=== PATIENT | male | born 1950 | race Caucasian/White ===

== ENCOUNTER 2017-02-25 16:53 | Inpatient (IN) ==
[2017-02-25] MEDS ORDERED: metroNIDAZOLE 500 MG TABLET PO STA (17:24)
[2017-02-25] MEDS ORDERED: ONDANSETRON 4 MG/2 ML VIAL IV STA (17:24)
[2017-02-25] MEDS ORDERED: SODIUM CHLORIDE 0.9% 1,000 ML IV STA (17:24)
--- NOTE | 2017-02-25 17:33 | Emergency Department Note ---
Arrival - Arrival Chief Complaint: Nausea/Vomiting/Diarrhea ED Nursing Triage Note: Transfer from [facility] for further evaluation of nausea/vomiting/diarrhea, COPD exacerbation, and Renal Failure. Onset N/V/D approx 3-4 days ago. Denies pain at present. Ramon catheter noted. Mode of Arrival: Stretcher Limitations: No Limitations Source: Patient Time Seen by Provider: 02/25/17 17:24 - History of Present Illness HPI Narrative: This 66-year-old white male presents on referral from [facility] where he was seen for nausea, vomiting, and diarrhea with a syncopal episode on the toilet precipitating his visit to the ER today. The patient has had 3-4 days of GI upset associated with chills, fever, and abdominal pain localized to the left lower quadrant. This has also been associated with dysuria, urgency, and drop in stream necessitating Ramon placement at [facility]. During the process of the workup at [facility] the patient was found to be in significant renal distress with a BUN of 92 and a creatinine is 7.1 of which the patient states he has had a kidney problem in the past. The patient is an extremely poor historian and seems somewhat confused, oriented to person and place but not so well time. Currently he does not appear in medical distress. Onset (ago): day(s) (3-4 days) Allergies/Adverse Reactions: Allergies Allergy/AdvReac Type Severity Reaction Status Date / Time No Known Allergies Allergy Verified 02/25/17 17:07 Home Medications: Home Medications Medication Instructions Recorded Confirmed Type ALPRAZolam [Xanax] 1 mg PO BID PRN 04/23/15 04/23/15 History Alfuzosin HCl [Alfuzosin HCl ER] 10 mg PO DAILY 04/23/15 04/23/15 History Aspirin [Ecotrin] 81 mg PO DAILY 04/23/15 04/23/15 History Bimatoprost 0.01% Oph Soln 1 drop BOTH EYES BEDTIME 04/23/15 04/23/15 History [Lumigan] Cilostazol [Pletal] 50 mg PO BID 04/23/15 04/23/15 History Duloxetine HCl [Cymbalta] 60 mg PO DAILY 04/23/15 04/23/15 History Fentanyl [Fentanyl 75 mcg/hr Patch] 1 patch TRANSDERM Q3DAY 04/23/15 04/23/15 History Gabapentin Cap/Tab [Neurontin 600 mg PO QID 04/23/15 04/23/15 History Cap/Tab] HYDROcodone/ACETAMIN 10-325 [[place] 1 tablet PO Q4H PRN 04/23/15 04/23/15 History 10-325] Lisinopril [Zestril] 10 mg PO BID 04/23/15 04/23/15 History Morphine Sulfate 30 mg PO TID 04/23/15 04/23/15 History Pravastatin [Pravachol] 40 mg PO BEDTIME 04/23/15 04/23/15 History Zolpidem Tartrate [Ambien] 10 mg PO BEDTIME 04/23/15 04/23/15 History traZODone [Desyrel] 100 mg PO BEDTIME 04/23/15 04/23/15 History Review of System - Review of System 12 point system: reviewed and no additional remarkable complaints except as stated - Review of System Constitutional: Present: as per HPI Gastrointestinal: Present: as per HPI Genitourinary male: Present: as per HPI Neurological: Present: as per HPI Medical,Surgical,& Family Hx - Medical History Cardio: History of: CHF, CAD, Hypertension Endocrine: History of: Diabetes Mellitus (IDDM), Dyslipidemia Respiratory: History of: COPD Musculoskeletal: History of: Back/Neck Problems (chronic pain followed by Dr. Pena) - Surgical History Orthopedic Surgeries: Surgical HX of;: Orthopedic Surgery (amputation right great toe) - Social History Smoking Status: Former smoker Exam Physical Examination: GENERAL: Well developed, well nourished elderly white male in no acute distress. HEENT: Normocephalic. No trauma. Moist mucous membranes. EOMI. PERRLA. ENT NML NECK: Supple. No adenopathy. CARDIAC: Regular. No murmurs. Heart rate 112 CHEST: Clear to auscultation. No respiratory distress. O2 sat 97% ABDOMEN: Soft. Left lower quadrant and suprapubic tenderness with hypoactive bowel sounds EXTREMITIES: No trauma. Normal ROM. No pedal edema. SKIN: No diaphoresis. No rash. NEURO: Alert. Oriented to person and place but not so well time. Motor, sensory, vibratory intact. No focal deficits. Vital Signs: Vital Signs Temperature 99.4 F 02/25/17 17:10 Pulse Rate 112 H 02/25/17 17:10 Respiratory Rate 20 02/25/17 17:10 Blood Pressure 78/44 02/25/17 17:10 O2 Sat by Pulse Oximetry 94 L 02/25/17 16:53 Course - Reevaluation(s) Reevaluation #1: Discussed with patient the need for hospitalization - Consultations Consultation #1: Patient discussed with the hospitalist service who will admit for further evaluation treatment. Results - Labs CBC & BMP: 02/25/17 18:02 Lab Results: I have reviewed the patients labs Labs: Lab from [facility] reveals white blood count 17,800 hematocrit 35, glucose 151 BUN 92, creatinine 7.1, lipase 75, lactic acid 2.9. - Impressions EKG: Atrial fib with rapid ventricular response at 117. Normal QRS duration. Marked right axis deviation. Old inferior VA. No acute injury patterns. - Diagnostic Findings Procedure: Chest x-ray: image reviewed by me, report reviewed by me (Per [facility] , negative chest.), CT Abdomen and Pelvis: image reviewed by me, report reviewed by me (Evidence indicating a transverse colon mass as well as vascular calcinosis and a prior vertebroplasty of L1), CT: image reviewed by me, report reviewed by me (Head: Microvascular ischemia with cerebral atrophy but no acute injury noted) Disposition Clinical Impression: Renal insufficiency, Presumed transverse colon mass, Chronic diarrhea Case discussed with: patient Disposition: Still a Patient Condition: Guarded Time of Disposition: 18:35
[2017-02-25] MEDS ORDERED: ONDANSETRON 4 MG/2 ML VIAL ONE (17:43)
[2017-02-25] MEDS ORDERED: metroNIDAZOLE 500 MG TABLET ONE (17:43)
--- NOTE | 2017-02-25 17:54 | CT Report ---
Exam: CT scan of brain without contrast Date: 02/25/2017 Indication: Syncopal episode Comparison: 09/18/2011 Patient's classification: Emergency department Technical: Images were obtained from the skull base to the vertex without the use of intravenous contrast. Dose reduction was performed with decreasing kv and mA and automated exposure Total DLP: 1081.1 mGy*cm Findings: The ventricles are slightly enlarged. Small vessel changes are present in the periventricular subcortical white matter regions. Old lacunar infarction suspected in the right frontal subcortical junction the brainstem reveals mild ischemic change. The cerebellum reveals minimal atrophic changes. The paranasal sinuses globes and sella are intact. The mastoids are unremarkable. Calcification of the falx cerebri present. Impression: 1. Diffuse small vessel ischemic change and probable component of old small infarction involving the right frontal subcortical junction 2. Atrophy and component of the small vessel disease PROCEDURE INTERPRETED AT [facility] DEPARTMENT OF RADIOLOGY Final Report Signed by: Dr. Rojelio Vallecillo
--- NOTE | 2017-02-25 18:01 | EKG Report ---
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
--- NOTE | 2017-02-25 18:05 | CT Report ---
Exam: CT abdomen pelvis wo con Date: 02/25/2017 5:28 PM Comparison: None Indication: Pain small bowel obstruction Total DLP: 1559.5 mGy*cm Technical: No oral contrast was administered. Images were obtained from the lung bases to the iliac crest continuation through the pelvis without intravenous contrast with axial sagittal coronal imaging available for review. Dose reduction was performed with decreasing kv and mA and automated exposure Findings: Lung bases: No obvious effusions in the right lung base. There is atelectatic change and infiltrate in the left base posteriorly with small left base pleural effusion. Liver and Spleen: Unremarkable Gallbladder and Pancreas: Cholelithiasis present slight distention of the gallbladder. The pancreas is demonstrated without focal abnormalities Adrenals: Unremarkable Kidneys: The kidneys are demonstrated without obvious stones or obstruction or mass. Stomach: Distended with air-fluid and debris Retroperitoneum: No enlarged lymph nodes. Aorta and IVC: Vascular plaque in the aorta iliac vessels and mesenteric vasculature without aneurysm. The aorta and IVC without contrast or not otherwise evaluated. Bowel and Mesentery: Some fluid distention of the ascending colon and hepatic flexure present. The appendix is unremarkable. No obvious diverticulosis or diverticulitis or pneumoperitoneum. Small bowel is demonstrated without dilatation. Dilated transverse colonic segment present there is transition in the descending colon present. Pelvis: Bladder: Incompletely distended with fluid with Ramon catheter in place and small amount of air in the bladder Fluid: No free fluid identified. Lymph nodes: No enlarged lymph nodes. Pelvic organs: Phleboliths present true pelvis. Prostate gland is unremarkable. Osseous structures: Degenerative changes present thoracolumbar spine with multilevel disc disease and degenerative changes thoracolumbar spine with degenerative spondylosis present. Previous vertebral plasty at L1. Facet arthropathy is noted. Impression: 1. Dilated transverse colon with a transition in the region of the descending colon just below the splenic flexure. Colonoscopy may be beneficial for further evaluation. Underlying malignancy cannot be excluded this level. No evidence of pneumoperitoneum at this time. 2. No obvious evidence of small bowel obstruction 3. Mild distention of the stomach 4. Cholelithiasis 5. Vascular calcinosis 6. Degenerative spondylosis and previous vertebral plasty at L1 with intervertebral discogenic disease and facet arthropathy throughout the lumbosacral spine and lower thoracic spine. PROCEDURE INTERPRETED AT [facility] DEPARTMENT OF RADIOLOGY Final Report Signed by: Dr. Rojelio Vallecillo
[2017-02-25 18:23] LABS: Basophils # 0.1 10*3/uL (0.0-0.2); Basophils % 0.2 % (0.0-0.8); Eosinophils % 0.1 % (0.00-10.9); Hemoglobin 11.6 GM/DL (14.0-18.0); Immature Granulocytes % 0.5 %; Immature Granulocytes Absolute 0.11 #; Lymphocytes % 4.7 % (21.2-54.2); Mean Corpuscular HGB Conc 33.1 GM/DL (32-36); Mean Corpuscular Hemoglobin 30 PG (27-34); Mean Corpuscular Volume 90.2 FL (87-102); Mean Platelet Volume 11.5 FL (9.6-12.0); Monocytes # 1.3 10*3/uL (0.11-0.8); Monocytes % 6.4 % (1.7-12.7); Neutrophils # 18.1 10*3/uL (1.4-7.4); Neutrophils % 88.1 % (38.7-73.9); Platelet Count 299 T/CUMM (130-400); Red Blood Count 3.88 MC/CUMM (3.8-5.5); Red Cell Distribution Width 14.7 % (9.3-17.3); White Blood Count 20.5 T/CUMM (4-12)
[2017-02-25 18:28] LABS: Apearance,Urine Slightly Hazy (Clear); Bilirubin,Urine Negative (Negative); Blood, Urine Negative (Negative); Glucose,Urine (UA) Negative (Negative); Hyaline Casts,Urine 4 /LPF (0-3); Ketones,Urine Negative (Negative); Mucus,Urine Occasional /LPF (Occasional); Nitrite,Urine Negative (Negative); Protein,Urine Negative; RBC,Urine <1 /HPF (0-4); Squamous Epithelial Cell,Urine Occasional /HPF (0-10); Urine Color Yellow (Yellow); Urine Specific Gravity 1.013 (1.001-1.035); Urine Urobilinogen < 2.0 EU/DL (0.2-1.0); WBC,Urine 1 /HPF (0-6)
[2017-02-25 18:39] LABS: Barbiturates Screen,Urine Negative (Negative); Benzodiazepines Screen,Urine Negative (Negative); Cannabinoid Screen,Urine Negative (Negative); Opiate Screen,Urine Positive (Negative); Phencyclidine Screen,Urine Negative (Negative)
--- NOTE | 2017-02-25 18:40 | Hospitalist History & Physical ---
Assessment and Plan - Time spent with patient Time spent with patient: Greater than 30 minutes (1) Sepsis Status: Acute Assessment and plan: Patient presents with possible sepsis as he at this time may have a gastroenteritis and meets sirs criteria. He apparently had a lactic acid level that was elevated at an outlying facility and is currently hypotensive. We will culture and begin broad-spectrum IV antibiotics as well as initiate sepsis protocol which includes aggressive IV fluid hydration. Repeat labs are currently pending. Current Visit: Yes (2) Renal failure Status: Acute Assessment and plan: Patient is an renal failure. We have no baseline but this is presumed to be acute in nature. He is making urine which appears to be concentrated and is likely secondary to volume depletion. Will aggressively hydrate and follow strict I's and O's and repeat electrolytes and renal function in the a.m. Current Visit: Yes (3) Atrial fibrillation with rapid ventricular response Status: Acute Assessment and plan: Patient has atrial fibrillation with rapid ventricular response and it appears that he is volume depleted. We will fluid resuscitate and reevaluate prior to initiating any other rate controlling drugs. Current Visit: Yes (4) Hypertension Status: Chronic Assessment and plan: Patient is currently hypotensive. Will hold any antihypertensive therapy and aggressively fluid resuscitate. Current Visit: Yes Qualifiers: Hypertension type: essential hypertension Qualified Code(s): I10 - Essential (primary) hypertension (5) Diabetes mellitus Status: Chronic Assessment and plan: Patient gives a history of diabetes mellitus. He states he is on insulin however we have no doses. He is apparently on no oral agent as well. Will place him on Accu-Cheks with sliding scale and follow. Current Visit: Yes Qualifiers: Diabetes mellitus type: type 2 (6) Abnormal abdominal CT scan Status: Acute Assessment and plan: Please see findings. Will provide IV fluids, empiric IV antibiotics, antiemetics and analgesics. Further workup and formal GI consultation will be performed based on patient's clinical response and the results of the pending database. Current Visit: Yes (7) Chronic pain syndrome Status: Chronic Assessment and plan: Patient has chronic pain syndrome. At this time will withhold most sedating and mind altering drugs and provide only as needed. Will need to reinitiate his chronic meds when deemed appropriate. Current Visit: Yes History of Present Illness Chief complaint: Confused, passed out History of present illness: Mr. Murphy is a 66 year old white male who initially presented to [facility] after having weakness and apparently had a syncopal episode after toileting. He was evaluated there and noted to have renal failure and lactic acidosis and was transferred to [facility]. He is currently awake and alert and oriented to person place and time, however he is extremely poor historian and is unable to give a reliable history. He states his primary care provider is Gabino Jones. He also notes that he has a fast heart rate and is fixated on this is being why he is here. He apparently had some nausea vomiting and some very mild diarrhea earlier in the week. He admits to having hypertension, diabetes mellitus, chronic pain syndrome but denies any other medical problems. Home Medications Medication Instructions Recorded Confirmed Type Zolpidem Tartrate [Ambien] 10 mg PO BEDTIME 04/23/15 02/25/17 History Chlorthalidone 12.5 mg PO DAILY 02/25/17 02/25/17 History Metoprolol Tartrate 12.5 mg PO BID 02/25/17 02/25/17 History Pantoprazole Tab [Protonix Tab] 40 mg PO BID 02/25/17 02/25/17 History Pregabalin [Lyrica] 75 mg PO TID PRN 02/25/17 02/25/17 History Tizanidine HCl 4 mg PO TID 02/25/17 02/25/17 History dilTIAZem HCl [Diltiazem ER (24 120 mg PO BEDTIME 02/25/17 02/25/17 History hr)] diphenhydrAMINE CAP [Benadryl Cap] 25 mg PO DAILY PRN 02/25/17 02/25/17 History Allergies Allergy/AdvReac Type Severity Reaction Status Date / Time No Known Allergies Allergy Verified 02/25/17 17:07 Medical,Surgical,& Family Hx - Medical History Cardio: History of: CHF, CAD, Hypertension Endocrine: History of: Diabetes Mellitus (IDDM), Dyslipidemia Respiratory: History of: COPD Musculoskeletal: History of: Back/Neck Problems (chronic pain followed by Dr. Pena) - Surgical History Orthopedic Surgeries: Surgical HX of;: Orthopedic Surgery (amputation right great toe) - Family History Additional Family History: He states there is no family history of premature coronary disease, - Social History Smoking Status: Former smoker Have you smoked in the last 12 months: No Frequency of Alcohol Use: None Type of Drug Use: None Marital Status: 12 point system: reviewed and no additional remarkable complaints except as stated Exam - Constitutional Vitals: Period Temp Pulse Resp BP Sys/Olson Pulse Ox Last 24 Hr 99.4 F-99.4 F 112-112 20-20 78-78/44-44 94 General appearance: no acute distress - Head Head exam: Present: normocephalic, atraumatic - Eye Eye exam: Present: EOMI. Absent: scleral icterus Pupils: Present: LANEY - ENT ENT exam: Present: other (Dry mucous membranes) - Neck Neck exam: Absent: lymphadenopathy, meningismus, tenderness, thyromegaly - Respiratory Respiratory exam: Present: clear to auscultation bilaterally. Absent: accessory muscle use, rales, rhonchi, wheezes - Cardiovascular Cardiovascular exam: Present: regular rate and rhythm, tachycardia. Absent: gallop, systolic murmur - GI/Abdominal GI/Abdominal exam: Present: normal bowel sounds, soft. Absent: mass, tenderness , rebound - Extremities Exam Extremities exam: Absent: calf tenderness, edema - Back Exam Back exam: Present: normal inspection - Neurological Exam Neurological exam: Present: alert, oriented X3, CN II-XII intact. Absent: motor sensory deficit - Psychiatric Psychiatric exam: Present: normal mood, flat affect. Absent: agitated, anxious - Skin Skin exam: Present: warm, dry. Absent: rash Results - Labs CBC & BMP: 02/25/17 18:02 02/25/17 18:02 Lab Results: I have reviewed the past 24 hour labs - EKG EKG shows: atrial fibrillation - Diagnostic Findings Procedure: Chest x-ray: report reviewed by me, CT Abdomen and Pelvis: report reviewed by me Sepsis - Sepsis Classification of Sepsis: Septic Shock - Physical Exam Respiratory exam: clear to auscultation bilaterally Capillary Refill: Less Than 3 Seconds Peripheral pulses: Radial (L): 5+, Radial (R): 5+ Cardiovascular exam: irregular rhythm, tachycardia Skin exam: normal color
[2017-02-25 18:47] LABS: Calcium 7.7 MG/DL (8.5-10.1); Osmolality,Calculated 288.7 MOS/KG (273-304); Potassium 5.4 MMOL/L (3.5-5.1)
[2017-02-25] MEDS ORDERED: SODIUM CHLORIDE 0.9% 2,650 ML IV ONE (18:54)
[2017-02-25] MEDS ORDERED: LACTATED RINGERS 1,000 ML IV SCH ×2 (19:00→21:50)
[2017-02-25 19:05] LABS: CKMB % 2.7 %; Troponin I Only < 0.015 NG/ML (0.00-0.045)
[2017-02-25] MEDS ORDERED: ONDANSETRON 4 MG/2 ML VIAL IV PRN (19:50)
[2017-02-25] MEDS ORDERED: DEXTROSE 50% 25 GM/50 ML VIAL IV PRN (19:50)
[2017-02-25] MEDS ORDERED: GLUCAGON 1 MG VIAL IM PRN (19:50)
[2017-02-25 19:58] LABS: Band Neutrophils 1 % (0-10); Lymphocytes 8 % (20-55); Platelet Estimate Normal; Segmented Neutrophils 87 % (50-85); Total Cells Counted 100
--- NOTE | 2017-02-25 20:00 | XRay Report ---
Exam: XR chest 1V portable Date: 02/25/2017 7:25 PM Indication: Shortness of breath Comparison: 02/25/2017 Technical: AP portable Findings: External cardiac leads are present. Mild cardiac enlargement. Patchy interstitial densities and reticular nodular densities in the lung rice bilaterally. No pneumothorax present. Mediastinum is unremarkable otherwise. Impression: 1. Mild cardiomegaly 2. Underlying granuloma changes 3. Minimal patchy interstitial infiltrate suspected in the left base PROCEDURE INTERPRETED AT [facility] DEPARTMENT OF RADIOLOGY Final Report Signed by: Dr. Rojelio Vallecillo
[2017-02-25] MEDS: CILOSTAZOL 50 MG TABLET PO SCH (20:49)
[2017-02-25] MEDS: ENOXAPARIN 30 MG/0.3 ML SYRINGE SUBCUT SCH (20:49)
[2017-02-25] MEDS: PIPERACILLIN/TAZOBACTAM 3,375 MG in SODIUM CHLORIDE 0.9% 100 ML IV SCH (20:50)
[2017-02-25] MEDS: BIMATOPROST 0.01% OPH SOLN 2.5 ML BOTTLE BOTH EYES SCH (20:55)
[2017-02-25] MEDS ORDERED: SODIUM CHLORIDE 0.9% 1,000 ML IV ONE (21:00)
[2017-02-25] MEDS ORDERED: PRAVASTATIN 40 MG TABLET PO SCH (21:00)
[2017-02-25] MEDS ORDERED: SODIUM CHLORIDE 0.9% 1,650 ML IV ONE (22:30)
[2017-02-25] MEDS ORDERED: VANCOMYCIN INJ 1,500 MG in SODIUM CHLORIDE 0.9% 500 ML IV ONE (23:08)
[2017-02-25] MEDS ORDERED: VANCOMYCIN INJ 1,500 MG in SODIUM CHLORIDE 0.9% 500 ML IV PRN (23:21)
--- NOTE | 2017-02-25 23:27 | Event Note ---
Go to the bedside of the patient in CCU room at 123 because of anuria: Patient transferred here from [facility] area today admitted by my colleagues. Patient has a creatinine around 7 with BUN in the 90s. He has received 1/2 L of normal saline and he continues to be anuric. We have bladder scanned him there is nothing in the urinary bladder. He had an CT scan of the abdomen and pelvis area on today which revealed no obstruction in the upper GI tract. My question is whether this is new. I am also concerned that the patient has modest elevation of potassium at this time. Looks like he needs nephrology consultation with intention of dialyzing him. I did call Dr. Mccann who is the rn lab gas distribution and emergency clerk. He advises that patient does not need to have anything done at this point. Plan is to repeat a BMP and magnesium in the morning. Said in the potassium probably be higher than what it is now because he definitely has not produced in the urine. We will continue normal saline at 100 mL/h after the boluses. Blood pressure is optimal. Mucous membranes do not look to be as dehydrated. Skin turgor is normal. Have noted him to be quite shaky and tremulous and I am thinking this is withdrawal from his opioids. Takes extended release morphine alongside Percocets at home. His medications are yet to be verified but will resume these opioids while here. This is a pain clinic outpatient. We may have: Pain management. too. The rest of these effects have been written.
[2017-02-25] MEDS ORDERED: MORPHINE ER 30 MG TABLET PO ONE (23:30)
[2017-02-25] MEDS ORDERED: SODIUM CHLORIDE 0.9% 1,000 ML IV SCH (23:30)
[2017-02-26] MEDS: metroNIDAZOLE INJ 500 MG in PREMIX 1 EACH IV SCH ×3 (00:32→16:50)
[2017-02-26] MEDS ORDERED: SODIUM CHLORIDE 0.9% 1,000 ML IV ONE ×2 (00:56→13:17)
[2017-02-26] MEDS: INSULIN LISPRO 100 UNIT/ML SUBCUT SCH ×5 (00:59→21:39)
[2017-02-26] MEDS ORDERED: VANCOMYCIN INJ 1,000 MG in SODIUM CHLORIDE 0.9% 250 ML IV ONE (01:00)
[2017-02-26] MEDS ORDERED: NOREPINEPHRINE 4 MG/4 ML VIAL IV ONE (01:16)
[2017-02-26] MEDS: NOREPINEPHRINE 8 MG in SODIUM CHLORIDE 0.9% 242 ML IV SCH ×2 (01:24→18:01)
--- NOTE | 2017-02-26 01:29 | Event Note ---
Second go to see the patient in room 123 Mr. Murphy dropped his blood pressure in the 80s systolic. He is able to mentate with eyes but his blood pressures remained showing to be low and is tachycardic he had atrial fibrillation from history with a rate between 110 and 126. I will resorted to starting some Levophed on him at 2 mics per minute to titrate his systolic blood pressure above 90 maintaining a mean arterial pressure of 65. Still is yet to make any urine. The process of also given him a liter of normal saline change. Will leave him on 120 mL/min drip after these. Follow urine output. Nephrology consultation is on board and will see him in the morning
[2017-02-26 04:45] LABS: Basophils # 0.1 10*3/uL (0.0-0.2); Basophils % 0.3 % (0.0-0.8); Eosinophils # 0.1 10*3/uL (0.0-0.87); Eosinophils % 0.3 % (0.00-10.9); Hematocrit 33.6 VOL% (42.0-52.0); Hemoglobin 10.7 GM/DL (14.0-18.0); Immature Granulocytes % 0.7 %; Immature Granulocytes Absolute 0.15 #; Lymphocytes % 9.6 % (21.2-54.2); Mean Corpuscular HGB Conc 31.8 GM/DL (32-36); Mean Corpuscular Hemoglobin 29 PG (27-34); Mean Corpuscular Volume 91.6 FL (87-102); Mean Platelet Volume 11.8 FL (9.6-12.0); Monocytes # 1.3 10*3/uL (0.11-0.8); Monocytes % 6.6 % (1.7-12.7); Neutrophils # 16.7 10*3/uL (1.4-7.4); Neutrophils % 82.5 % (38.7-73.9); Platelet Count 245 T/CUMM (130-400); Red Blood Count 3.67 MC/CUMM (3.8-5.5); Red Cell Distribution Width 14.9 % (9.3-17.3); White Blood Count 20.3 T/CUMM (4-12)
--- NOTE | 2017-02-26 04:46 | EKG Report ---
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
[2017-02-26 05:12] LABS: Calcium 6.7 MG/DL (8.5-10.1)
[2017-02-26 05:21] LABS: Band Neutrophils 3 % (0-10); Eosinophils 1 % (0-10); Hypochromasia 1+; Lymphocytes 4 % (20-55); Ovalocytes Slight; Platelet Estimate Adequate; Segmented Neutrophils 88 % (50-85); Total Cells Counted 100
--- NOTE | 2017-02-26 06:52 | Pain Management Consult Note ---
Assessment and Plan (1) Chronic pain syndrome Status: Chronic Assessment and plan: Currently the patient does not seem to be in opioid withdrawal. I can give him low doses of [place] at this time as needed. I would consult Dr. Cherry from [facility] to assist in pain management because he is more familiar with the patient Current Visit: Yes History of Present Illness Chief complaint: Chronic pain History of present illness: Mr. Murphy is a 66 year old male Patient used to see me for pain management and I had let him go from a pain clinic of couple of years ago due to issues surrounding inappropriate use of narcotics. Patient used to have a pain pump implanted which had to be removed due to infection. Patient has been going to the [facility] for the past couple of years. Patient was brought in from [facility] with renal failure sepsis and hypotension. I was consulted to assist in pain management. There is some confusion as far as what pain medications he is on and none of the pain prescription bottles were brought forward with the patient. Patient denies inappropriate use of narcotics at this time. The nurse has already requested the patient's to bring in the bottles Home Medications Medication Instructions Recorded Confirmed Type Zolpidem Tartrate [Ambien] 10 mg PO BEDTIME 04/23/15 02/25/17 History Chlorthalidone 12.5 mg PO DAILY 02/25/17 02/25/17 History Metoprolol Tartrate 12.5 mg PO BID 02/25/17 02/25/17 History Pantoprazole Tab [Protonix Tab] 40 mg PO BID 02/25/17 02/25/17 History Pregabalin [Lyrica] 75 mg PO TID PRN 02/25/17 02/25/17 History Tizanidine HCl 4 mg PO TID 02/25/17 02/25/17 History dilTIAZem HCl [Diltiazem ER (24 120 mg PO BEDTIME 02/25/17 02/25/17 History hr)] diphenhydrAMINE CAP [Benadryl Cap] 25 mg PO DAILY PRN 02/25/17 02/25/17 History Allergies Allergy/AdvReac Type Severity Reaction Status Date / Time No Known Allergies Allergy Verified 02/25/17 17:07 Medical,Surgical,& Family Hx - Medical History Cardio: History of: CHF, CAD, Hypertension Neurology: History of: Cerebrovascular Accident (12 yrs ago), Dementia Endocrine: History of: Diabetes Mellitus (IDDM), Dyslipidemia Respiratory: History of: COPD, Obstructive Sleep Apnea (refuses cpap) Renal: History of: Renal Failure Gastrointestinal: History of: GI Problems (bleeding ulcers 6 mo ago [facility]) Musculoskeletal: History of: Back/Neck Problems (chronic pain followed by Dr. Pena) - Surgical History Cardiac Surgeries: Patient Denies: Cardiac Catheterization Reproductive Surgeries: Patient denies;: Genitourinary Surgery Orthopedic Surgeries: Surgical HX of;: Orthopedic Surgery (amputation right great toe) - Family History Family History: Reports;: Family Cancer (mom-throat), Family Heart Disease (aunt ) - Social History Smoking Status: Former smoker Frequency of Alcohol Use: None Type of Drug Use: None 12 point system: reviewed and no additional remarkable complaints except as stated - Musculoskeletal Musculoskeletal: Present: arthralgias, back pain, joint swelling, muscle cramps - Neurological Neurological: Present: abnormal gait Exam - Constitutional Vitals: Period Temp Pulse Resp BP Sys/Olson Pulse Ox Last 24 Hr 98.0 F-99.9 F 101-131 10-26 46-161/37-134 93-100 General appearance: no acute distress - Head Head exam: Present: normal inspection - Eye Eye exam: Present: EOMI Pupils: Present: LANEY - ENT ENT exam: Present: normal exam Ear exam: Present: intact Mouth exam: Present: normal external inspection - Neck Neck exam: Present: normal inspection - Respiratory Respiratory exam: Present: decreased breath sounds - Cardiovascular Cardiovascular exam: Present: irregular rhythm - GI/Abdominal GI/Abdominal exam: Present: normal bowel sounds - Extremities Exam Extremities exam: Present: normal inspection - Back Exam Back exam: Present: vertebral tenderness - Neurological Exam Neurological exam: Present: abnormal gait - Skin Skin exam: Present: dry Results - Labs CBC & BMP: 02/26/17 04:10 02/26/17 04:10 Lab Results: I have reviewed the past 24 hour labs
--- NOTE | 2017-02-26 08:22 | Nephrology Consult Note ---
History of Present Illness Chief complaint: ARF History of present illness: Mr. Murphy is a 66 year old male with presentation of hypotension, septic picture, and oliguria. He has a history of diabetes mellitus and history of chronic back and leg pain for which he takes chronic opiates. He says that he has had episodes of renal failure in the past. Since he has been here he has received fluid resuscitation and is improved with good urine output now and a falling creatinine down to 6.4 from 7.0. He does have a metabolic acidosis with a measured bicarb of 14 this morning. Appropriate cultures pending. On exam he is in no distress and able to give a good history. His neck without jugular venous distention heart without rub or gallop. He is in atrial fib with an irregular rhythm rate of 110. Blood pressures currently 95 systolic on Levophed. He has no peripheral edema. Chest x-ray demonstrates no infiltrate. Impression acute renal failure in the midst of a septic hypotensive illness #2 history of diabetes mellitus #3 atrial fibrillation #4 history of previous episodes of renal impairment Plan bicarb repletion continue fluids and continue support. We expect his renal function to continue with this improvement. Home Medications Medication Instructions Recorded Confirmed Type Zolpidem Tartrate [Ambien] 10 mg PO BEDTIME 04/23/15 02/25/17 History Chlorthalidone 12.5 mg PO DAILY 02/25/17 02/25/17 History Metoprolol Tartrate 12.5 mg PO BID 02/25/17 02/25/17 History Pantoprazole Tab [Protonix Tab] 40 mg PO BID 02/25/17 02/25/17 History Pregabalin [Lyrica] 75 mg PO TID PRN 02/25/17 02/25/17 History Tizanidine HCl 4 mg PO TID 02/25/17 02/25/17 History dilTIAZem HCl [Diltiazem ER (24 120 mg PO BEDTIME 02/25/17 02/25/17 History hr)] diphenhydrAMINE CAP [Benadryl Cap] 25 mg PO DAILY PRN 02/25/17 02/25/17 History Allergies Allergy/AdvReac Type Severity Reaction Status Date / Time No Known Allergies Allergy Verified 02/25/17 17:07 Medical,Surgical,& Family Hx - Medical History Cardio: History of: CHF, CAD, Hypertension Neurology: History of: Cerebrovascular Accident (12 yrs ago), Dementia Endocrine: History of: Diabetes Mellitus (IDDM), Dyslipidemia Respiratory: History of: COPD, Obstructive Sleep Apnea (refuses cpap) Renal: History of: Renal Failure Gastrointestinal: History of: GI Problems (bleeding ulcers [address] [facility]) Musculoskeletal: History of: Back/Neck Problems (chronic pain followed by Dr. Pena) - Surgical History Cardiac Surgeries: Patient Denies: Cardiac Catheterization Reproductive Surgeries: Patient denies;: Genitourinary Surgery Orthopedic Surgeries: Surgical HX of;: Orthopedic Surgery (amputation right great toe) - Family History Family History: Reports;: Family Cancer (mom-throat), Family Heart Disease (aunt ) - Social History Smoking Status: Former smoker Frequency of Alcohol Use: None Type of Drug Use: None Exam - Vital Signs Vital signs: Period Temp Pulse Resp BP Sys/Olson Pulse Ox Last 24 Hr 98.0 F-99.9 F 101-131 10-26 46-161/37-134 93-100 - General Appearance General appearance: well-developed, well-nourished, appears started age Neck: no JVD, no thyromegaly, no carotid bruit, supple Respiratory: no kyphosis, no scoliosis Cardiology: no murmurs, no rub, no gallops, no edema, regular rate, regular rhythm, normal S1, normal S2 Gastrointestinal: normoactive bowel sounds Integumentary: no rash, warm and dry Neurologic: no focal deficit, no asterixis, alert and oriented x3, reflexes 2+ and symmetric, gait normal, strength 5/5 Musculoskeletal: no deformities, no erythema, no cyanosis, no clubbing Psychiatric: mood/affect appropriate Results - Labs CBC & BMP: 02/26/17 04:10 02/26/17 04:10 Assessment and Plan - Time spent with patient Time spent with patient: Greater than 30 minutes (1) Renal failure Status: Acute Assessment and plan: Continue fluid and bicarb Current Visit: Yes (2) Diabetes mellitus Status: Chronic Current Visit: Yes Qualifiers: Diabetes mellitus type: type 2 (3) Atrial fibrillation with rapid ventricular response Status: Acute Current Visit: Yes
[2017-02-26] MEDS ORDERED: PANTOPRAZOLE 40 MG VIAL IV SCH (09:00)
[2017-02-26] MEDS: DULoxetine 30 MG CAPSULE PO SCH (09:08)
[2017-02-26] MEDS: ASPIRIN EC 81 MG TABLET PO SCH (09:08)
[2017-02-26] MEDS: CILOSTAZOL 50 MG TABLET PO SCH ×2 (09:09→21:43)
[2017-02-26] MEDS: MORPHINE ER 30 MG TABLET PO SCH ×2 (09:10→21:42)
[2017-02-26] MEDS: PIPERACILLIN/TAZOBACTAM 3,375 MG in SODIUM CHLORIDE 0.9% 100 ML IV SCH ×2 (10:31→21:40)
[2017-02-26] MEDS: oxyCODONE/ACETAMINOPHEN 5-325 MG TABLET PO PRN (10:58)
--- NOTE | 2017-02-26 11:06 | Hospitalist Progress Note ---
Assessment and Plan (1) Sepsis Status: Acute Assessment and plan: 1)sepsis from likely GI source- CT abnormal with transition point in transverse colon. GI consulted. No hematochezia, no diarrhea-he had diarrhea earlier this week by report from outside ER. No more syncope like he had at home before admission. His blood pressure is improved from admission and we are tapering off the levophed. Cultures obtained on admission and he is on broad spectrum antibiotics. He was aggressively rehydrated. Afebrile, WBC remains elevated around 20 2)afib with RVR- he is tolerating this well at this time. While I was at the bedside his heart rate was 110-130. Begin IV dilt and titrate to keep HR 60-90. Controloling rate will likely help get him off levophed. Not anticoagulated as outpatient. No prior diagnosis of afib on chart. On lovenox 30mg/day at this time. 3)renal failure- he says he has this sometimes. His baseline creatinine is unknown. He has been seen by Dustin Mccann who added bicarb to his fluids which should help his BP too. creatinine down after hydration, recheck in am. 4)DM- on home insulin doses now with SSI. 5)chronic pain syndrome- concern last night was for withdrawal. Dr Pena has fired him in the past. He recommended low dose hydrocodone prn and follow up with DR Soria as outpatient. He doesn't have privileges here. Current Visit: Yes (2) Renal failure Status: Acute Current Visit: Yes (3) Atrial fibrillation with rapid ventricular response Status: Acute Current Visit: Yes (4) Diabetes mellitus Status: Chronic Current Visit: Yes Qualifiers: Diabetes mellitus type: type 2 (5) Chronic pain syndrome Status: Chronic Current Visit: Yes (6) Abnormal abdominal CT scan Status: Acute Current Visit: Yes Hospitalist: Subjective Interval history: Mr Murphy was admitted with sepsis from possible gastroenteritis. He is alert and back to his mental status baseline this morning per his - he has underlying dementia. His BP is high on levophed at 20 and it is being tapered off quickly this morning. His UOP has increased. He is hungry. Denies pain or shortness of breath. Not able to tell me how he was feeling on admission, but he is confident that he feels better. Exam - Constitutional Vitals: Period Temp Pulse Resp BP Sys/Olson Pulse Ox Last 24 Hr 98.0 F-99.9 F 101-131 10-26 46-161/37-134 93-100 General appearance: no acute distress, over weight - Head Head exam: Present: normocephalic, atraumatic - Eye Eye exam: Present: EOMI. Absent: scleral icterus Pupils: Present: LANEY - Respiratory Respiratory exam: Present: clear to auscultation bilaterally - Cardiovascular Cardiovascular exam: Present: irregular rhythm, tachycardia - GI/Abdominal GI/Abdominal exam: Present: normal bowel sounds, soft. Absent: tenderness - Extremities Exam Extremities exam: Absent: edema - Neurological Exam Neurological exam: Present: alert, CN II-XII intact. Absent: oriented X3 (not to time), motor sensory deficit - Skin Skin exam: Present: warm, dry Results - Labs CBC & BMP: 02/26/17 04:10 02/26/17 04:10 Lab Results: I have reviewed the past 24 hour labs
[2017-02-26] MEDS ORDERED: BISACODYL 5 MG TABLET PO SCH (11:30)
[2017-02-26] MEDS: SODIUM ACETATE 50 MEQ in SODIUM CHLORIDE 0.45% 1,000 ML IV SCH ×2 (11:37→21:39)
[2017-02-26] MEDS: DILTIAZEM INJ 100 MG in SODIUM CHLORIDE 0.9% 100 ML IV SCH (11:59)
[2017-02-26] MEDS ORDERED: MORPHINE 2 MG/1 ML SYRINGE ONE (12:19)
[2017-02-26] MEDS: MORPHINE 2 MG/1 ML SYRINGE IV PRN (12:23)
[2017-02-26] MEDS ORDERED: SODIUM BICARBONATE 50 MEQ/50 ML VIAL IV ONE (12:59)
--- NOTE | 2017-02-26 13:30 | EKG Report ---
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
--- NOTE | 2017-02-26 13:35 | Gastrointestinal Consult Note ---
Assessment and Plan (1) Abnormal abdominal CT scan Status: Acute Assessment and plan: The patient does have some abdominal distention with a history of alternating diarrhea and constipation. Is unclear in my mind whether this represents a diverticular stricture versus diverticulitis versus artifact from CT evaluation with dilation above the segments due to constipation and apparent transition point. I think if there was diverticulitis the radiologist would have commented on fat stranding around the colon which does not appear to be present. So linking the CT scan findings and the patient's elevated white blood cell count may not be realistic. I think a simple barium enema would evaluate this area nicely and we can obtain the patient's old colonoscopy report from Dr. Salazar/[facility] for evaluation. The patient will be unlikely to have a colon cancer this close to recent colonoscopy done at [facility] (by report this occurred in August 2016). Further recommendations post evaluation of the previous scope report and barium enema when this patient is well enough to undergo a trip to radiology and rectal contrast. Anticipate this may be in the next day or 2. Current Visit: Yes (2) Anemia Status: Acute Assessment and plan: Hematocrit is dropped from 35.0-->33.6%. I suspect this may be multifactorial due to renal dysfunction, chronic disease, possible gastritis and possibly nutritional. He is having some scant rectal bleeding which may be due to hemorrhoids. Will have to review the previous colonoscopy report, but I doubt there is significant bleeding from the colon such as might be seen with a diverticular bleed or an ischemic colitis. We will continue to follow the hematocrit during his hospital stay. Current Visit: Yes (3) Leukocytosis Status: Acute Assessment and plan: Leukocytosis with unclear etiology. Again while this may be related to the patient's underlying GI abnormalities we need to check the colon to see if there is evidence of colitis and search for other potential sources of infection , pneumonia etc. We will watch for improvement in the patient's white blood cell count over time on antibiotics. I have asked the nursing staff to collect stool cultures and fecal white blood cells in addition to the C. difficile order previously written. Current Visit: Yes (4) History of gastric ulcer Status: Acute Assessment and plan: The patient's states that he had a recent hospitalization at [facility] which were returned to get the results of concerning his gastric ulcer. We will continue to watch the patient's hematocrit over time and observe for bright red blood per rectum versus melena indicating potential source. While we could consider doing both EGD and colonoscopy patient's had both of these done at [facility] within the last year by report. I would like to review these records before considering repeating the tests. Nursing staff has been asked to have the patient sign a release of information to this and. Current Visit: Yes History of Present Illness Chief complaint: Abnormal GI x-ray question partial colonic obstruction History of present illness: Mr. Murphy is a 66 year old male who is somewhat confused and feels like he has had alternating diarrhea and constipation, predominantly constipated and only recently switching over to diarrhea but also some rectal bleeding in the last several days. He presents this admission with an elevated white blood cell count to 20.3 K and decrease in his hematocrit to 33.6% in addition to multiple electrolyte abnormalities including hyperkalemia and creatinine up to 7.2 yesterday with a BUN of 86. CEA level is actually normal at 1.3. Opiate screen is positive on urine drug screening but the patient has chronic pain issues. He is being referred at this time due to a transition point seen on CT scan and the level of the descending colon with dilation of the transverse above this just below the splenic flexure. It was felt that colonoscopy may be helpful for further evaluation however the patient states that he has had colonoscopy done as recently as August 2016. Dr. Lobato indicates the patient had a recent bleeding episode over [facility] approximately 3 months ago where ulcer was treated by Dr. Salazar. We are attempting to get the records from the EGD and colonoscopy. He is eating his clear liquids without difficulty. He does have some distention of his bowel by physical examination. He is currently experiencing sepsis and Dr. Lobato believes this is secondary to a GI source. This would be odd without the patient having more pain in the CT scan demonstrating fat stranding around the colon not just a transition point. He is currently experiencing some atrial fibrillation with rapid ventricular response and has been requiring levo fed in order to keep his blood pressure is adequate for perfusion. Kidney function is improving. Dr. Lobato would like to hold off on doing a barium enema in order to assess the transition point further, I suspect this may be an artifact--although there is some very mild tenderness and tympany noted throughout the abdomen. She does not know if he has had polyps in the past but states this is been 1 of many colonoscopies that he has had through his life. Stool studies on the patient's diarrhea are pending. Home Medications Medication Instructions Recorded Confirmed Type Zolpidem Tartrate [Ambien] 10 mg PO BEDTIME 04/23/15 02/25/17 History Chlorthalidone 12.5 mg PO DAILY 02/25/17 02/25/17 History Metoprolol Tartrate 12.5 mg PO BID 02/25/17 02/25/17 History Pantoprazole Tab [Protonix Tab] 40 mg PO BID 02/25/17 02/25/17 History Pregabalin [Lyrica] 75 mg PO TID PRN 02/25/17 02/25/17 History Tizanidine HCl 4 mg PO TID 02/25/17 02/25/17 History dilTIAZem HCl [Diltiazem ER (24 120 mg PO BEDTIME 02/25/17 02/25/17 History hr)] diphenhydrAMINE CAP [Benadryl Cap] 25 mg PO DAILY PRN 02/25/17 02/25/17 History Allergies Allergy/AdvReac Type Severity Reaction Status Date / Time No Known Allergies Allergy Verified 02/25/17 17:07 Medical,Surgical,& Family Hx - Medical History Cardio: History of: CHF, CAD, Hypertension Neurology: History of: Cerebrovascular Accident (12 yrs ago), Dementia Endocrine: History of: Diabetes Mellitus (IDDM), Dyslipidemia Respiratory: History of: COPD, Obstructive Sleep Apnea (refuses cpap) Renal: History of: Renal Failure Gastrointestinal: History of: GI Problems (bleeding ulcers 6 mo ago [facility] system) Musculoskeletal: History of: Back/Neck Problems (chronic pain followed by Dr. Pena) - Surgical History Cardiac Surgeries: Patient Denies: Cardiac Catheterization Reproductive Surgeries: Patient denies;: Genitourinary Surgery Orthopedic Surgeries: Surgical HX of;: Orthopedic Surgery (amputation right great toe) - Family History Family History: Reports;: Family Cancer (mom-throat), Family Heart Disease (aunt ) - Social History Smoking Status: Former smoker Frequency of Alcohol Use: None Type of Drug Use: None Review of systems: Constitutional: Positive for recent fever, chills, nausea, and vomiting Eyes: Denies dry eyes, and scleral icterus HENT: Denies headaches Cardiovascular: Denies acute chest pain and claudication Respiratory: Denies shortness of breath, wheezing, and difficulty breathing, denies cough Gastrointestinal: As noted in the HPI Genitourinary: Denies dysuria and hematuria Neurologic: Denies vision loss, and loss of sensation Musculoskeletal: Patient does have some mild to moderate joint swelling, joint stiffness, and muscular weakness Psychiatric: Denies depression and nela symptoms, he does have chronic pain issues Heme-Lymph: Denies easy bruising, lymph node enlargement or tenderness, night sweats, excessive bleeding Allergies-immunologic: Denies pruritus and rhinorrhea Exam - Constitutional Vitals: Period Temp Pulse Resp BP Sys/Olson Pulse Ox Last 24 Hr 98.0 F-99.9 F 99-131 10-26 46-161/37-134 93-100 General appearance: mild distress - Head Head exam: Present: normocephalic - Eye Eye exam: Present: EOMI Pupils: Present: LANEY - Respiratory Respiratory exam: Present: clear to auscultation bilaterally. Absent: rhonchi, stridor, wheezes - Cardiovascular Cardiovascular exam: Present: regular rate and rhythm - GI/Abdominal GI/Abdominal exam: Present: distended, hypoactive bowel sounds, tenderness ( Very mild epigastric distention and mild tenderness), soft. Absent: guarding, rebound - Extremities Exam Extremities exam: Present: edema, other (Patient is missing his right great toe , trace edema at the ankles bilaterally) - Neurological Exam Neurological exam: Present: alert, oriented X3, CN II-XII intact. Absent: motor sensory deficit - Psychiatric Psychiatric exam: Present: normal affect, normal mood (Seems jovial) - Skin Skin exam: Present: warm Results - Labs CBC & BMP: 02/26/17 04:10 02/26/17 04:10
--- NOTE | 2017-02-26 14:47 | Cardiology Consult Note ---
<Cari Plasencia E - Last Filed: 02/26/17 14:06> Assessment and Plan - Time spent with patient Time spent with patient: Greater than 30 minutes (1) Chest pain Status: Resolved Assessment and plan: SEE PLAN OF CARE LISTED BELOW Current Visit: Yes (2) Sepsis Status: Acute Assessment and plan: SEE PLAN OF CARE LISTED BELOW Current Visit: Yes (3) Renal failure Status: Acute Assessment and plan: SEE PLAN OF CARE LISTED BELOW Current Visit: Yes (4) Atrial fibrillation with rapid ventricular response Status: Acute Assessment and plan: SEE PLAN OF CARE LISTED BELOW Current Visit: Yes (5) Diabetes mellitus Status: Chronic Current Visit: Yes Qualifiers: Diabetes mellitus type: type 2 (6) Chronic pain syndrome Status: Chronic Assessment and plan: SEE PLAN OF CARE LISTED BELOW Current Visit: Yes (7) Abnormal abdominal CT scan Status: Acute Assessment and plan: SEE PLAN OF CARE LISTED BELOW Current Visit: Yes (8) Anemia Status: Acute Assessment and plan: SEE PLAN OF CARE LISTED BELOW Current Visit: Yes (9) Leukocytosis Status: Acute Assessment and plan: SEE PLAN OF CARE LISTED BELOW Current Visit: Yes (10) History of gastric ulcer Status: Chronic Assessment and plan: SEE PLAN OF CARE LISTED BELOW Current Visit: Yes History of Present Illness - Data of Consult Patient: new to practice Consult date: 02/26/17 Requesting Physician: Erica Lobato - Consult Narrative Reason for consult: chest pain History of present illness: ONLINE COMMUNICATIONS SPECIALIST: LATRELL: DR. PATRIC CASTORENA: DR. WATKINS PCP: DR. MIKO SEVILLA Patient is being seen in the CCU. Patient does answer questions appropriately however he is a poor historian. Along with patient interview, a large portion of this information is taken from other healthcare providers and medical records. Mr. Murphy, 66WM, has been previously followed by Dr. Watkins, oncology specialist, at [facility]. Risk factors include: History of hypertension, diabetes, CVA, obesity, sedentary lifestyle, remote tobaccoism. He denies a known history of CAD, never having had a stress test or cardiac catheterization. Known history of atrial fibrillation. Patient cannot recall if he has ever taken a blood thinner. He reports he has had a stroke many years ago which affected his right upper and lower extremity to be minimally weaker than the left. Patient was admitted February 25, 2017 after being transferred from [facility] with complaints of weakness, syncope. He was found to be septic and has been housed in our CCU since admission. Patient is requiring Levophed. A "heart alert" was called this afternoon after patient complained of lower mid chest/epigastric pain suddenly. He had never experienced this type of discomfort before. Describes as "something stabbing, circling around in the there". It did not cause shortness of breath, lasted approximately 5 minutes and was relieved with IV morphine. He can identify no aggravating factors and rates the discomfort as a 7 on a scale of 1-10. He is currently chest pain- free. Cardiac biomarkers are pending. EKG reveals atrial fibrillation with rapid ventricular response. Since admission, patient has been in A. fib with RVR. IV Cardizem was started around noon today at 5 mg/h, heart rate now around 110 bpm. Patient is debilitated and does not walk very well due to weak lower legs and severe back pain. He cannot assess a change in his exercise tolerance but states as he performs his activities of daily living, he has never experienced chest pain before today. He does have a history of peptic ulcer disease. This was discovered in August [address] Dale Salazar at [facility], immunochemist. He denies vomiting of blood or passing blood in his stool. Etiology of sepsis is unknown but he may have a gastroenteritis and is being treated for such. Dr. Saravia is following as well. He is in renal failure, thought to be acute as we have no labs from which to compare. He is currently being hydrated. Cardiac biomarkers have been ordered, EKG does not reveal an acute event. We will continue to cycle the biomarkers and treat accordingly. Chest pain may be GI related as it is located in the lower chest/epigastric area. Of note, as I raised head of the bed to 90 to relieve his lower back pain, patient belched a significant amount several times. I will add Simethicone to his present medication regimen. Echocardiogram. Continue with hydration which may better control the rapid ventricular response. Once his sepsis improves, I suspect his heart rate will improve as well. I will further discuss with Dr. Mack and await additional recommendations. ASSESSMENT/PLAN: 1. CHEST PAIN - awaiting cardiac biomarkers which may simply be elevated due to his severe sepsis, metabolic disarray and rapid ventricular response. EKG does not reflect significant ST changes. This may be GI in nature to location, history of gastric ulcers, SIGNIFICANT amount of belching when I repositioned patient. Appreciate Dr. Saravia's assistance. 2. ATRIAL FIBRILLATION WITH RVR -rate is better controlled on IV Diltiazem. Suspect once his comorbidities improve, so will his rapid ventricular response. I will obtain records from Dr. Yarbrough's office. At this time, due to his anemia, he is not a candidate for anticoagulation but possibly in his future. Given his renal failure, hesitant to use IV Digoxin but may resort to using one dose if his rate becomes uncontrolled and we cannot escalate the dose of IV Diltiazem. 3. SEPSIS - continue current plan of care 4. HYPOTENSION - Levophed in place, adjusting according to needs but seems to be stable at the same dose this afternoon 5. DIABETES - continue current plan of care 6. ACUTE RENAL INSUFFICIENCY - presumed acute renal insufficiency. Stage IV 7. HISTORY OF GASTRIC ULCER DISEASE - awaiting records from Dr. Dale Matson' s office. Continue PPI 8. ABNORMAL ABDOMINAL CT -see report. 9. ANEMIA - current workup in process 10. LEUKOCYTOSIS - continue current plan of care. On appropriate antibiotics. Cultures pending CC: Erica Lobato MD - Home Medications and Allergies Home Medications: Home Medications Medication Instructions Recorded Confirmed Type Zolpidem Tartrate [Ambien] 10 mg PO BEDTIME 04/23/15 02/25/17 History Chlorthalidone 12.5 mg PO DAILY 02/25/17 02/25/17 History Metoprolol Tartrate 12.5 mg PO BID 02/25/17 02/25/17 History Pantoprazole Tab [Protonix Tab] 40 mg PO BID 02/25/17 02/25/17 History Pregabalin [Lyrica] 75 mg PO TID PRN 02/25/17 02/25/17 History Tizanidine HCl 4 mg PO TID 02/25/17 02/25/17 History dilTIAZem HCl [Diltiazem ER (24 120 mg PO BEDTIME 02/25/17 02/25/17 History hr)] diphenhydrAMINE CAP [Benadryl Cap] 25 mg PO DAILY PRN 02/25/17 02/25/17 History Allergies/Adverse Reactions: Allergies Allergy/AdvReac Type Severity Reaction Status Date / Time No Known Allergies Allergy Verified 02/25/17 17:07 Review of systems: REVIEW OF SYSTEMS: - Constitutional Constitutional: Present: Fatigue. Syncope. Absent: anorexia, night sweats - EENT Eyes: Absent: blurry vision, loss of vision, diplopia Ears: Absent: decreased hearing, ear pain, ear discharge - Cardiovascular Cardiovascular: Present: chest pain with exertion, dyspnea on exertion, edema, palpitations. Absent: chest pain with deep breath, claudication, - Respiratory Respiratory: Present: Recent cough . Absent: wheezing, hemoptysis, change in phlegm color - Gastrointestinal Gastrointestinal: Present: constipation, abdominal pain. Absent: hematemesis , hematochezia, melena, change in bowel habits, nausea - Genitourinary Genitourinary: Absent: difficulty urinating, dysuria, urinary hesitancy, flank pain - Musculoskeletal Musculoskeletal: Present: back pain Absent: joint swelling, muscle cramps, muscle weakness - Neurological Neurological: Present: Poor gait with frequent falls. Absent: dizziness, hemiparesis - Psychiatric Psychiatric: Anxiety present. Often has difficulty concentrating - Endocrine Endocrine: Present: fatigue. Absent: cold intolerance, heat intolerance, polyuria, polyphagia, polydipsia - Hematologic/Lymphatic Hematologic/Lymphatic: Present: easy bruising. Absent: easy bleeding -Integumentary Integumentary: Absent: lesions, rashes, skin breakdown Medical,Surgical,& Family Hx - Medical History Cardio: History of: CHF, CAD, Hypertension Neurology: History of: Cerebrovascular Accident (12 yrs ago), Dementia Endocrine: History of: Diabetes Mellitus (IDDM), Dyslipidemia Respiratory: History of: COPD, Obstructive Sleep Apnea (refuses cpap) Renal: History of: Renal Failure Gastrointestinal: History of: GI Problems (bleeding ulcers 6 mo ago [facility]) Musculoskeletal: History of: Back/Neck Problems (chronic pain followed by Dr. Pena) - Surgical History Cardiac Surgeries: Patient Denies: Cardiac Catheterization Reproductive Surgeries: Patient denies;: Genitourinary Surgery Orthopedic Surgeries: Surgical HX of;: Orthopedic Surgery (amputation right great toe) - Family History Family History: Reports;: Family Cancer (mom-throat), Family Heart Disease (aunt ) - Social History Smoking Status: Former smoker Have you smoked in the last 12 months: No Frequency of Alcohol Use: None Type of Drug Use: None Physical Examination Vital Signs Temp Pulse Resp BP Pulse Ox 99.4 F 112 H 20 78/44 94 L 02/25/17 16:53 02/25/17 16:53 02/25/17 16:53 02/25/17 16:53 02/25/17 16:53 General: [Appears critically ill. Pleasant and cooperative. ] HEENT: [PERRL, normocephalic, atraumatic. Mucous membranes moist. No jaundice noted. Conjunctiva moist and clear, sclerae anicteric] Neck: Unable to assess for JVD due to habitus. No thyromegaly or lymphadenopathy noted. No carotid bruit appreciated Cardiac: [Irregularly irregular rhythm, tachycardia rate. No obvious murmur, rub or gallop noted Lungs: [Clear to auscultation without accessory muscle use to assist the respiratory pattern.] Oxygen in use via nasal cannula Abdomen: Soft, bowel sounds normoactive. Nontender and nondistended. No abdominal bruit or thrill noted. No masses noted. Musculoskeletal: No fluid collection. Decreased range of motion is noted. Extremities: No clubbing, cyanosis noted. [ No edema noted.] Upper extremity pulses 2+. Lower extremity pulses 1+. Great toe right foot amputated. Capillary refill less than 3 seconds. Skin: No unusual lesions or rashes. No skin breakdown appreciated. Neuro: Awake, alert and oriented 3. Moves all extremities well without hemiparesis or paralysis. No essential tremor is appreciated. Result/EKG - Labs CBC & BMP: 02/26/17 04:10 02/26/17 04:10 Lab Results: I have reviewed the past 24 hour labs Labs: Laboratory Results - last 24 hr 02/25/17 02/25/17 02/25/17 18:02 18:02 18:02 WBC 20.5 H RBC 3.88 Hgb 11.6 L Hct 35.0 L MCV 90.2 MCH 30 MCHC 33.1 RDW 14.7 Plt Count 299 MPV 11.5 Neut % (Auto) 88.1 H Lymph % (Auto) 4.7 L [place] % (Auto) 6.4 Eos % (Auto) 0.1 Baso % (Auto) 0.2 Neut # (Auto) 18.1 H Lymph # (Auto) 1.0 L [place] # (Auto) 1.3 H Eos # (Auto) 0.0 Baso # (Auto) 0.1 Total Counted 100 Immature Gran % 0.5 Nucleated RBC % 0.0 Immature Gran # 0.11 Segmented Neutrophils 87 H Band Neutrophils 1 Lymphocytes 8 L Monocytes 4 Eosinophils Nucleated RBCs # 0.00 Platelet Estimate Normal Platelet Satelliting Hypochromasia Ovalocytes Sodium 131 L Potassium 5.4 H Chloride 95 L Carbon Dioxide 19 L Anion Gap 22.4 H BUN 86 H Creatinine 7.20 H GFR Calculation 9 BUN/Creatinine Ratio 11.00 Glucose 119 H POC Glucose Calculated Osmolality 288.7 Lactic Acid Cancelled Calcium 7.7 L Total Creatine Kinase CK-MB (CK-2) CK and CKMB Interp Troponin I Amylase 59 Lipase 73.0 Carcinoembryonic Ag PSA Diagnostic Urine Color Yellow Urine Appearance Slightly hazy Urine pH 5.0 Ur Specific [place] 1.013 Urine Protein Negative Urine Glucose (UA) Negative Urine Ketones Negative Urine Blood Negative Urine Nitrate Negative Urine Bilirubin Negative Urine Urobilinogen < 2.0 H Urine Leukocytes Negative Urine RBC <1 Urine WBC 1 Ur Squamous Epith Cells Occasional Hyaline Casts 4 Urine Mucus Occasional Ur Culture Indicated? Not indicated Urine Opiates Screen Ur Barbiturates Screen Ur Phencyclidine Scrn U Amphetamine/Methamph U Benzodiazepines Scrn U Cocaine Metab Screen U Cannabinoids Screen Serum Alcohol 02/25/17 02/25/17 02/25/17 18:02 18:02 18:02 WBC RBC Hgb Hct MCV MCH MCHC RDW Plt Count MPV Neut % (Auto) Lymph % (Auto) [place] % (Auto) Eos % (Auto) Baso % (Auto) Neut # (Auto) Lymph # (Auto) [place] # (Auto) Eos # (Auto) Baso # (Auto) Total Counted Immature Gran % Nucleated RBC % Immature Gran # Segmented Neutrophils Band Neutrophils Lymphocytes Monocytes Eosinophils Nucleated RBCs # Platelet Estimate Platelet Satelliting Hypochromasia Ovalocytes Sodium Potassium Chloride Carbon Dioxide Anion Gap BUN Creatinine GFR Calculation BUN/Creatinine Ratio Glucose POC Glucose Calculated Osmolality Lactic Acid Calcium Total Creatine Kinase 354 H CK-MB (CK-2) 9.7 H CK and CKMB Interp 2.7 Troponin I < 0.015 Amylase Lipase Carcinoembryonic Ag PSA Diagnostic 0.4 Urine Color Urine Appearance Urine pH Ur Specific [place] Urine Protein Urine Glucose (UA) Urine Ketones Urine Blood Urine Nitrate Urine Bilirubin Urine Urobilinogen Urine Leukocytes Urine RBC Urine WBC Ur Squamous Epith Cells Hyaline Casts Urine Mucus Ur Culture Indicated? Urine Opiates Screen Ur Barbiturates Screen Ur Phencyclidine Scrn U Amphetamine/Methamph U Benzodiazepines Scrn U Cocaine Metab Screen U Cannabinoids Screen Serum Alcohol < 15 L 02/25/17 02/25/17 02/25/17 18:02 20:18 21:45 WBC RBC Hgb Hct MCV MCH MCHC RDW Plt Count MPV Neut % (Auto) Lymph % (Auto) [place] % (Auto) Eos % (Auto) Baso % (Auto) Neut # (Auto) Lymph # (Auto) [place] # (Auto) Eos # (Auto) Baso # (Auto) Total Counted Immature Gran % Nucleated RBC % Immature Gran # Segmented Neutrophils Band Neutrophils Lymphocytes Monocytes Eosinophils Nucleated RBCs # Platelet Estimate Platelet Satelliting Hypochromasia Ovalocytes Sodium Potassium Chloride Carbon Dioxide Anion Gap BUN Creatinine GFR Calculation BUN/Creatinine Ratio Glucose POC Glucose 106 Calculated Osmolality Lactic Acid 1.9 Calcium Total Creatine Kinase CK-MB (CK-2) CK and CKMB Interp Troponin I Amylase Lipase Carcinoembryonic Ag PSA Diagnostic Urine Color Urine Appearance Urine pH Ur Specific [place] Urine Protein Urine Glucose (UA) Urine Ketones Urine Blood Urine Nitrate Urine Bilirubin Urine Urobilinogen Urine Leukocytes Urine RBC Urine WBC Ur Squamous Epith Cells Hyaline Casts Urine Mucus Ur Culture Indicated? Urine Opiates Screen Positive H Ur Barbiturates Screen Negative Ur Phencyclidine Scrn Negative U Amphetamine/Methamph Negative U Benzodiazepines Scrn Negative U Cocaine Metab Screen Negative U Cannabinoids Screen Negative Serum Alcohol 02/26/17 02/26/17 02/26/17 00:39 04:10 04:10 WBC 20.3 H RBC 3.67 L Hgb 10.7 L Hct 33.6 L MCV 91.6 MCH 29 MCHC 31.8 L RDW 14.9 Plt Count 245 MPV 11.8 Neut % (Auto) 82.5 H Lymph % (Auto) 9.6 L [place] % (Auto) 6.6 Eos % (Auto) 0.3 Baso % (Auto) 0.3 Neut # (Auto) 16.7 H Lymph # (Auto) 2.0 [place] # (Auto) 1.3 H Eos # (Auto) 0.1 Baso # (Auto) 0.1 Total Counted 100 Immature Gran % 0.7 Nucleated RBC % 0.0 Immature Gran # 0.15 Segmented Neutrophils 88 H Band Neutrophils 3 Lymphocytes 4 L Monocytes 4 Eosinophils 1 Nucleated RBCs # 0.00 Platelet Estimate Adequate Platelet Satelliting Hypochromasia 1+ Ovalocytes Slight Sodium 136 Potassium 5.0 Chloride 105 Carbon Dioxide 14 L Anion Gap 22.0 H BUN 82 H Creatinine 6.40 H GFR Calculation 10 BUN/Creatinine Ratio 12.00 Glucose 129 H POC Glucose 105 Calculated Osmolality 298.0 Lactic Acid Calcium 6.7 L Total Creatine Kinase CK-MB (CK-2) CK and CKMB Interp Troponin I Amylase Lipase Carcinoembryonic Ag PSA Diagnostic Urine Color Urine Appearance Urine pH Ur Specific [place] Urine Protein Urine Glucose (UA) Urine Ketones Urine Blood Urine Nitrate Urine Bilirubin Urine Urobilinogen Urine Leukocytes Urine RBC Urine WBC Ur Squamous Epith Cells Hyaline Casts Urine Mucus Ur Culture Indicated? Urine Opiates Screen Ur Barbiturates Screen Ur Phencyclidine Scrn U Amphetamine/Methamph U Benzodiazepines Scrn U Cocaine Metab Screen U Cannabinoids Screen Serum Alcohol 02/26/17 02/26/17 02/26/17 06:08 11:17 11:46 WBC RBC Hgb Hct MCV MCH MCHC RDW Plt Count MPV Neut % (Auto) Lymph % (Auto) [place] % (Auto) Eos % (Auto) Baso % (Auto) Neut # (Auto) Lymph # (Auto) [place] # (Auto) Eos # (Auto) Baso # (Auto) Total Counted Immature Gran % Nucleated RBC % Immature Gran # Segmented Neutrophils Band Neutrophils Lymphocytes Monocytes Eosinophils Nucleated RBCs # Platelet Estimate Platelet Satelliting Hypochromasia Ovalocytes Sodium Potassium Chloride Carbon Dioxide Anion Gap BUN Creatinine GFR Calculation BUN/Creatinine Ratio Glucose POC Glucose 144 H 152 H Calculated Osmolality Lactic Acid Calcium Total Creatine Kinase CK-MB (CK-2) CK and CKMB Interp Troponin I Amylase Lipase Carcinoembryonic Ag 1.3 PSA Diagnostic Urine Color Urine Appearance Urine pH Ur Specific [place] Urine Protein Urine Glucose (UA) Urine Ketones Urine Blood Urine Nitrate Urine Bilirubin Urine Urobilinogen Urine Leukocytes Urine RBC Urine WBC Ur Squamous Epith Cells Hyaline Casts Urine Mucus Ur Culture Indicated? Urine Opiates Screen Ur Barbiturates Screen Ur Phencyclidine Scrn U Amphetamine/Methamph U Benzodiazepines Scrn U Cocaine Metab Screen U Cannabinoids Screen Serum Alcohol - Diagnostic Findings Procedure: Chest x-ray: report reviewed by me, CT - chest: report reviewed by me - EKG EKG results: interpreted by me EKG shows: atrial fibrillation (Rapid ventricular response) <Yovani Mack - Last Filed: 02/26/17 17:13> History of Present Illness - Consult Narrative History of present illness: Mr. Murphy is a 66 year old male CC: Erica Lobato MD Physical Examination Vital Signs Temp Pulse Resp BP Pulse Ox 99.4 F 112 H 20 78/44 94 L 02/25/17 16:53 02/25/17 16:53 02/25/17 16:53 02/25/17 16:53 02/25/17 16:53 Result/EKG - Labs CBC & BMP: 02/26/17 04:10 02/26/17 04:10 Labs: Laboratory Results - last 24 hr 02/25/17 02/25/17 02/25/17 18:02 18:02 18:02 WBC 20.5 H RBC 3.88 Hgb 11.6 L Hct 35.0 L MCV 90.2 MCH 30 MCHC 33.1 RDW 14.7 Plt Count 299 MPV 11.5 Neut % (Auto) 88.1 H Lymph % (Auto) 4.7 L [place] % (Auto) 6.4 Eos % (Auto) 0.1 Baso % (Auto) 0.2 Neut # (Auto) 18.1 H Lymph # (Auto) 1.0 L [place] # (Auto) 1.3 H Eos # (Auto) 0.0 Baso # (Auto) 0.1 Total Counted 100 Immature Gran % 0.5 Nucleated RBC % 0.0 Immature Gran # 0.11 Segmented Neutrophils 87 H Band Neutrophils 1 Lymphocytes 8 L Monocytes 4 Eosinophils Nucleated RBCs # 0.00 Platelet Estimate Normal Platelet Satelliting Hypochromasia Ovalocytes Sodium 131 L Potassium 5.4 H Chloride 95 L Carbon Dioxide 19 L Anion Gap 22.4 H BUN 86 H Creatinine 7.20 H GFR Calculation 9 BUN/Creatinine Ratio 11.00 Glucose 119 H POC Glucose Calculated Osmolality 288.7 Lactic Acid Cancelled Calcium 7.7 L Total Creatine Kinase CK-MB (CK-2) CK and CKMB Interp Troponin I Amylase 59 Lipase 73.0 Carcinoembryonic Ag PSA Diagnostic Urine Color Yellow Urine Appearance Slightly hazy Urine pH 5.0 Ur Specific [place] 1.013 Urine Protein Negative Urine Glucose (UA) Negative Urine Ketones Negative Urine Blood Negative Urine Nitrate Negative Urine Bilirubin Negative Urine Urobilinogen < 2.0 H Urine Leukocytes Negative Urine RBC <1 Urine WBC 1 Ur Squamous Epith Cells Occasional Hyaline Casts 4 Urine Mucus Occasional Ur Culture Indicated? Not indicated Urine Opiates Screen Ur Barbiturates Screen Ur Phencyclidine Scrn U Amphetamine/Methamph U Benzodiazepines Scrn U Cocaine Metab Screen U Cannabinoids Screen Serum Alcohol 02/25/17 02/25/17 02/25/17 18:02 18:02 18:02 WBC RBC Hgb Hct MCV MCH MCHC RDW Plt Count MPV Neut % (Auto) Lymph % (Auto) [place] % (Auto) Eos % (Auto) Baso % (Auto) Neut # (Auto) Lymph # (Auto) [place] # (Auto) Eos # (Auto) Baso # (Auto) Total Counted Immature Gran % Nucleated RBC % Immature Gran # Segmented Neutrophils Band Neutrophils Lymphocytes Monocytes Eosinophils Nucleated RBCs # Platelet Estimate Platelet Satelliting Hypochromasia Ovalocytes Sodium Potassium Chloride Carbon Dioxide Anion Gap BUN Creatinine GFR Calculation BUN/Creatinine Ratio Glucose POC Glucose Calculated Osmolality Lactic Acid Calcium Total Creatine Kinase 354 H CK-MB (CK-2) 9.7 H CK and CKMB Interp 2.7 Troponin I < 0.015 Amylase Lipase Carcinoembryonic Ag PSA Diagnostic 0.4 Urine Color Urine Appearance Urine pH Ur Specific [place] Urine Protein Urine Glucose (UA) Urine Ketones Urine Blood Urine Nitrate Urine Bilirubin Urine Urobilinogen Urine Leukocytes Urine RBC Urine WBC Ur Squamous Epith Cells Hyaline Casts Urine Mucus Ur Culture Indicated? Urine Opiates Screen Ur Barbiturates Screen Ur Phencyclidine Scrn U Amphetamine/Methamph U Benzodiazepines Scrn U Cocaine Metab Screen U Cannabinoids Screen Serum Alcohol < 15 L 02/25/17 02/25/17 02/25/17 18:02 20:18 21:45 WBC RBC Hgb Hct MCV MCH MCHC RDW Plt Count MPV Neut % (Auto) Lymph % (Auto) [place] % (Auto) Eos % (Auto) Baso % (Auto) Neut # (Auto) Lymph # (Auto) [place] # (Auto) Eos # (Auto) Baso # (Auto) Total Counted Immature Gran % Nucleated RBC % Immature Gran # Segmented Neutrophils Band Neutrophils Lymphocytes Monocytes Eosinophils Nucleated RBCs # Platelet Estimate Platelet Satelliting Hypochromasia Ovalocytes Sodium Potassium Chloride Carbon Dioxide Anion Gap BUN Creatinine GFR Calculation BUN/Creatinine Ratio Glucose POC Glucose 106 Calculated Osmolality Lactic Acid 1.9 Calcium Total Creatine Kinase CK-MB (CK-2) CK and CKMB Interp Troponin I Amylase Lipase Carcinoembryonic Ag PSA Diagnostic Urine Color Urine Appearance Urine pH Ur Specific [place] Urine Protein Urine Glucose (UA) Urine Ketones Urine Blood Urine Nitrate Urine Bilirubin Urine Urobilinogen Urine Leukocytes Urine RBC Urine WBC Ur Squamous Epith Cells Hyaline Casts Urine Mucus Ur Culture Indicated? Urine Opiates Screen Positive H Ur Barbiturates Screen Negative Ur Phencyclidine Scrn Negative U Amphetamine/Methamph Negative U Benzodiazepines Scrn Negative U Cocaine Metab Screen Negative U Cannabinoids Screen Negative Serum Alcohol 02/26/17 02/26/17 02/26/17 00:39 04:10 04:10 WBC 20.3 H RBC 3.67 L Hgb 10.7 L Hct 33.6 L MCV 91.6 MCH 29 MCHC 31.8 L RDW 14.9 Plt Count 245 MPV 11.8 Neut % (Auto) 82.5 H Lymph % (Auto) 9.6 L [place] % (Auto) 6.6 Eos % (Auto) 0.3 Baso % (Auto) 0.3 Neut # (Auto) 16.7 H Lymph # (Auto) 2.0 [place] # (Auto) 1.3 H Eos # (Auto) 0.1 Baso # (Auto) 0.1 Total Counted 100 Immature Gran % 0.7 Nucleated RBC % 0.0 Immature Gran # 0.15 Segmented Neutrophils 88 H Band Neutrophils 3 Lymphocytes 4 L Monocytes 4 Eosinophils 1 Nucleated RBCs # 0.00 Platelet Estimate Adequate Platelet Satelliting Hypochromasia 1+ Ovalocytes Slight Sodium 136 Potassium 5.0 Chloride 105 Carbon Dioxide 14 L Anion Gap 22.0 H BUN 82 H Creatinine 6.40 H GFR Calculation 10 BUN/Creatinine Ratio 12.00 Glucose 129 H POC Glucose 105 Calculated Osmolality 298.0 Lactic Acid Calcium 6.7 L Total Creatine Kinase CK-MB (CK-2) CK and CKMB Interp Troponin I Amylase Lipase Carcinoembryonic Ag PSA Diagnostic Urine Color Urine Appearance Urine pH Ur Specific [place] Urine Protein Urine Glucose (UA) Urine Ketones Urine Blood Urine Nitrate Urine Bilirubin Urine Urobilinogen Urine Leukocytes Urine RBC Urine WBC Ur Squamous Epith Cells Hyaline Casts Urine Mucus Ur Culture Indicated? Urine Opiates Screen Ur Barbiturates Screen Ur Phencyclidine Scrn U Amphetamine/Methamph U Benzodiazepines Scrn U Cocaine Metab Screen U Cannabinoids Screen Serum Alcohol 02/26/17 02/26/17 02/26/17 06:08 11:17 11:46 WBC RBC Hgb Hct MCV MCH MCHC RDW Plt Count MPV Neut % (Auto) Lymph % (Auto) [place] % (Auto) Eos % (Auto) Baso % (Auto) Neut # (Auto) Lymph # (Auto) [place] # (Auto) Eos # (Auto) Baso # (Auto) Total Counted Immature Gran % Nucleated RBC % Immature Gran # Segmented Neutrophils Band Neutrophils Lymphocytes Monocytes Eosinophils Nucleated RBCs # Platelet Estimate Platelet Satelliting Hypochromasia Ovalocytes Sodium Potassium Chloride Carbon Dioxide Anion Gap BUN Creatinine GFR Calculation BUN/Creatinine Ratio Glucose POC Glucose 144 H 152 H Calculated Osmolality Lactic Acid Calcium Total Creatine Kinase CK-MB (CK-2) CK and CKMB Interp Troponin I Amylase Lipase Carcinoembryonic Ag 1.3 PSA Diagnostic Urine Color Urine Appearance Urine pH Ur Specific [place] Urine Protein Urine Glucose (UA) Urine Ketones Urine Blood Urine Nitrate Urine Bilirubin Urine Urobilinogen Urine Leukocytes Urine RBC Urine WBC Ur Squamous Epith Cells Hyaline Casts Urine Mucus Ur Culture Indicated? Urine Opiates Screen Ur Barbiturates Screen Ur Phencyclidine Scrn U Amphetamine/Methamph U Benzodiazepines Scrn U Cocaine Metab Screen U Cannabinoids Screen Serum Alcohol 02/26/17 02/26/17 14:41 16:12 WBC RBC Hgb Hct MCV MCH MCHC RDW Plt Count MPV Neut % (Auto) Lymph % (Auto) [place] % (Auto) Eos % (Auto) Baso % (Auto) Neut # (Auto) Lymph # (Auto) [place] # (Auto) Eos # (Auto) Baso # (Auto) Total Counted Immature Gran % Nucleated RBC % Immature Gran # Segmented Neutrophils Band Neutrophils Lymphocytes Monocytes Eosinophils Nucleated RBCs # Platelet Estimate Platelet Satelliting Hypochromasia Ovalocytes Sodium Potassium Chloride Carbon Dioxide Anion Gap BUN Creatinine GFR Calculation BUN/Creatinine Ratio Glucose POC Glucose 197 H Calculated Osmolality Lactic Acid Calcium Total Creatine Kinase 357 H CK-MB (CK-2) 7.5 H CK and CKMB Interp 2.1 Troponin I < 0.015 Amylase Lipase Carcinoembryonic Ag PSA Diagnostic Urine Color Urine Appearance Urine pH Ur Specific Freeman Urine Protein Urine Glucose (UA) Urine Ketones Urine Blood Urine Nitrate Urine Bilirubin Urine Urobilinogen Urine Leukocytes Urine RBC Urine WBC Ur Squamous Epith Cells Hyaline Casts Urine Mucus Ur Culture Indicated? Urine Opiates Screen Ur Barbiturates Screen Ur Phencyclidine Scrn U Amphetamine/Methamph U Benzodiazepines Scrn U Cocaine Metab Screen U Cannabinoids Screen Serum Alcohol
--- NOTE | 2017-02-26 14:55 | ECHO Report ---
Ameya Murphy Exam Date: 02/26/2017 10:13 Referring Physician: Technologist: Ailyn Malloy Age: 66 Ht (in): 71 Wt (lb): 250 Gender: M Exam Location: [facility] Echo Indications: renal failure, sepsis, afib, htn, diabetes BP: 94 / 68 HR: 124 Rhythm: tachycardia Technical Quality: Technically difficult study IMPRESSIONS Technically difficult study Normal chamber sizes, other than underfilled LV with hyperdynamic function Probable 1-2+ concentric LVH Estimated ejection fraction is 70% without segmental wall motion abnormality 1+ mitral and tricuspid regurgitation with RVSP 18 mmHg plus RAP Tachycardia noted MEASUREMENTS (Male / Female) Normal Values 2D ECHO LV Diastolic Diameter PLAX 4.4 cm 4.2 - 5.9 / 3.9 - 5.3 cm LV Systolic Diameter PLAX 2.5 cm LV Fractional Shortening PLAX 44.2 % IVS Diastolic Thickness 1.5 cm 0.6 - 1.0 / 0.6 - 0.9 cm LVPW Diastolic Thickness 1.2 cm 0.6 - 1.0 / 0.6 - 0.9 cm RV Internal Dim ED PLAX 2.0 cm Aortic Root Diameter 2.7 cm LA Systolic Diameter LX 3.9 cm 3.0 - 4.0 / 2.7 - 3.8 cm DOPPLER TR Peak Velocity 212.0 cm/s TR Peak Gradient 18.0 mmHg FINDINGS Left Ventricle Moderately increased septal wall thickness. Moderate concentric left ventricular hypertrophy with diastolic dysfunction. Left ventricular ejection fraction is estimated a Right Ventricle Mildly increased right ventricular size. Right Atrium Normal right atrial size. Left Atrium Moderately increased left atrial diameter. Mitral Valve Mild mitral valve sclerosis. Aortic Valve Mild aortic valve sclerosis without stenosis or regurgitation. Tricuspid Valve Morphologically normal tricuspid valve. Mild tricuspid valve regurgitation. Tricuspid regurgitation velocities suggest a PAP of 28 mmHg. Pulmonic Valve Pulmonic valve not well visualized. Pericardium No pericardial effusion. Aorta Normal size aortic root and proximal ascending aorta. Yovani Mack (Electronically Signed) Final Date: 26 February 2017 14:54
[2017-02-26 15:17] LABS: CKMB % 2.1 %; Troponin I Only < 0.015 NG/ML (0.00-0.045)
--- NOTE | 2017-02-26 17:17 | Cardiology Operative Report ---
Date of Procedure:: 02/26/17 Post-op diagnosis: same Procedure: Procedure right femoral vein triple-lumen catheter placement Indication: Need for IV access and pressor therapy Anesthetic: Local Description: On my arrival the patient already had received local anesthetic and was draped in his right femoral area. I placed a triple-lumen catheter in the right femoral vein using a Seldinger technique and then sewed into place. Lines were all flushed. Anesthesia: local Surgeon / Physician: Yovani Mack [employer] Lead: none Estimated blood loss: minimal Specimens: none sent Condition: stable Disposition: ICU/CCU
--- NOTE | 2017-02-26 17:24 | Event Note ---
Mr Lopez required a central line because he remained on levophed. Informed consent was obtained and he was prepped and draped in sterile fashion for right IJ TLC. I used maximal sterile procedure including gown, gloves, hairnet. The sonosite was used to identify the IJ. The RIJ was cannulated but I was unable to thread the wire. Hemostasis was obtained by holding pressure. Then the right groin was prepped for R femoral TLC placement using maximal sterile technique as above. Again I was able to cannulate the femoral vein but the wire wouldn't thread. Dr Mack was available and agreed to try. Throughout the procedure Mr Lopez was alert and talkative, breathing comfortably lying flat. CXR pending.
--- NOTE | 2017-02-26 18:07 | XRay Report ---
Exam: XR chest 1V portable Date: 02/26/2017 5:14 PM Indication: Attempted right IJ central venous catheter. Comparison: 02/25/2017 Technical: AP portable Findings: Cardiomegaly is present. Low volume left effusion. No pneumothorax. External cardiac leads are present. Lateral marginal osteophytes present thoracic spine. Impression: 1. Cardiomegaly 2. Low volume left effusion and atelectatic change 3. No pneumothorax. PROCEDURE INTERPRETED AT [facility] DEPARTMENT OF RADIOLOGY Final Report Signed by: Dr. Rojelio Vallecillo
[2017-02-26 18:28] LABS: Calcium 6.5 MG/DL (8.5-10.1); Osmolality,Calculated 305.3 MOS/KG (273-304); Potassium 4.6 MMOL/L (3.5-5.1)
[2017-02-26 18:59] LABS: Bilirubin,Total 0.5 MG/DL (0.2-1.0); Calcium 6.6 MG/DL (8.5-10.1); Osmolality,Calculated 306.3 MOS/KG (273-304); Potassium 4.7 MMOL/L (3.5-5.1); Total Protein 5.9 G/DL (6.4-8.3)
[2017-02-26] MEDS: ENOXAPARIN 30 MG/0.3 ML SYRINGE SUBCUT SCH (21:38)
[2017-02-26] MEDS: CALCIUM CARBONATE CHEW 500 MG TABLET PO SCH (21:42)
[2017-02-26] MEDS: BIMATOPROST 0.01% OPH SOLN 2.5 ML BOTTLE BOTH EYES SCH (21:47)
[2017-02-26 23:44] LABS: CKMB % 2.1 %; Troponin I Only < 0.015 NG/ML (0.00-0.045)
[2017-02-27] MEDS: metroNIDAZOLE INJ 500 MG in PREMIX 1 EACH IV SCH ×3 (00:36→15:44)
[2017-02-27] MEDS: DILTIAZEM INJ 100 MG in SODIUM CHLORIDE 0.9% 100 ML IV SCH ×2 (00:43→08:25)
[2017-02-27 03:00] LABS: Basophils % 0.3 % (0.0-0.8); Eosinophils # 0.2 10*3/uL (0.0-0.87); Eosinophils % 1.3 % (0.00-10.9); Hematocrit 31.6 VOL% (42.0-52.0); Hemoglobin 10.1 GM/DL (14.0-18.0); Immature Granulocytes % 0.5 %; Immature Granulocytes Absolute 0.06 #; Lymphocytes % 7.8 % (21.2-54.2); Mean Corpuscular Hemoglobin 29 PG (27-34); Mean Corpuscular Volume 91.6 FL (87-102); Mean Platelet Volume 11.5 FL (9.6-12.0); Monocytes # 1.3 10*3/uL (0.11-0.8); Monocytes % 9.9 % (1.7-12.7); Neutrophils # 10.2 10*3/uL (1.4-7.4); Neutrophils % 80.2 % (38.7-73.9); Platelet Count 261 T/CUMM (130-400); Red Blood Count 3.45 MC/CUMM (3.8-5.5); Red Cell Distribution Width 15.2 % (9.3-17.3); White Blood Count 12.7 T/CUMM (4-12)
[2017-02-27 03:47] LABS: Calcium 7.1 MG/DL (8.5-10.1); Free T4 (Free Thyroxine) 1.12 NG/DL (0.76-1.46); Magnesium 1.6 MG/DL (1.8-2.4); Potassium 4.7 MMOL/L (3.5-5.1); Thyroid Stimulating Hormone 0.185 uIU/ml (0.358-3.74)
[2017-02-27] MEDS: SODIUM ACETATE 50 MEQ in SODIUM CHLORIDE 0.45% 1,000 ML IV SCH ×2 (06:12→16:46)
--- NOTE | 2017-02-27 06:45 | Gastrointestinal Progress Note ---
Assessment and Plan (1) Abnormal abdominal CT scan Status: Acute Assessment and plan: The patient does have some abdominal distention with a history of alternating diarrhea and constipation. Is unclear in my mind whether this represents a diverticular stricture versus diverticulitis versus artifact from CT evaluation with dilation above the segments due to constipation and apparent transition point. I think if there was diverticulitis the radiologist would have commented on fat stranding around the colon which does not appear to be present. So linking the CT scan findings and the patient's elevated white blood cell count may not be realistic. I think a simple barium enema would evaluate this area nicely and we can obtain the patient's old colonoscopy report from Dr. Salazar/[place] for evaluation. The patient will be unlikely to have a colon cancer this close to recent colonoscopy done at [place] (by report this occurred in August 2016). Further recommendations post evaluation of the previous scope report and barium enema when this patient is well enough to undergo a trip to radiology and rectal contrast. Anticipate this may be in the next day or 2. 02/27/17--We Are still awaiting colonoscopy reports from [place] at this point ( requested). Patient remains on levophed and is not able to go for the barium enema yet. White blood cell count is dropping currently down from 20K to 12.7 K today. We do not really see a diverticulitis, there may be noninflammatory kinking in the colon or this may be a artifact which we should be able to tell very quickly with a single column barium enema when the patient is able to tolerate this. In the meantime I may give him a small enema to stimulate forward flow with some soapsuds. Continue clear liquid diet as tolerated. If he develops vomiting we can consider using an NG tube for suctioning his stomach. Current Visit: Yes (2) Anemia Status: Acute Assessment and plan: Hematocrit is dropped from 35.0-->33.6%. I suspect this may be multifactorial due to renal dysfunction, chronic disease, possible gastritis and possibly nutritional. He is having some scant rectal bleeding which may be due to hemorrhoids. Will have to review the previous colonoscopy report, but I doubt there is significant bleeding from the colon such as might be seen with a diverticular bleed or an ischemic colitis. We will continue to follow the hematocrit during his hospital stay. 02/27/17--Observe. The hematocrit is down to 31.6 today. No gross evidence of hematemesis or active bleeding per rectum but then again the patient is not having any stools either Current Visit: Yes (3) Leukocytosis Status: Acute Assessment and plan: Leukocytosis with unclear etiology. Again while this may be related to the patient's underlying GI abnormalities we need to check the colon to see if there is evidence of colitis and search for other potential sources of infection , pneumonia etc. We will watch for improvement in the patient's white blood cell count over time on antibiotics. I have asked the nursing staff to collect stool cultures and fecal white blood cells in addition to the C. difficile order previously written. 02/27/17--This is improved already--continue antibiotics as we are doing. Current Visit: Yes (4) History of gastric ulcer Status: Chronic Assessment and plan: The patient's states that he had a recent hospitalization at [place] which were returned to get the results of concerning his gastric ulcer. We will continue to watch the patient's hematocrit over time and observe for bright red blood per rectum versus melena indicating potential source. While we could consider doing both EGD and colonoscopy patient's had both of these done at [place] within the last year by report. I would like to review these records before considering repeating the tests. Nursing staff has been asked to have the patient sign a release of information to this and. 02/27/17--Await old records from [facility] for review however the patient's hematocrit seems relatively stable at this point despite anticoagulation with aspirin and lovenox. Current Visit: Yes Gastroenterology - PN: Subj Interval history: Patient is cognizant and able to converse about his pain. While he feels bloated in his upper abdomen with some belching and reflux type symptoms he is not really complaining of any pain in his descending colon or the ascending colon on the lower in the lower abdomen bilaterally. He is not passing any gas he is not having bowel movements. I may give him an enema to see if we can stimulate forward flow. He is tolerating clear liquids adequately and given the fact that he has not passing stools yet will probably not advance him from this for the time being. He is not nauseous or vomiting--white blood cell count is down from 20 K to 12.7 K on antibiotics. Exam (Progress Note) - Constitutional Vitals: Period Temp Pulse Resp BP Sys/Olson Pulse Ox Last 24 Hr 97.5 F-98.1 F 82-138 10-22 59-154/40-119 90-99 General appearance: no acute distress - Head Head exam: Present: normocephalic - Eye Eye exam: Present: EOMI - Respiratory Respiratory exam: Present: clear to auscultation bilaterally. Absent: rhonchi, stridor, wheezes - GI/Abdominal GI/Abdominal exam: Present: normal bowel sounds, distended, tenderness (Mild tenderness to deep palpation over the epigastrium), soft, other (Increased tympany over the epigastrium). Absent: guarding, rebound - Extremities Exam Extremities exam: Absent: edema - Neurological Exam Neurological exam: Present: alert, oriented X3. Absent: motor sensory deficit - Psychiatric Psychiatric exam: Present: normal affect, normal mood - Skin Skin exam: Present: warm Results - Labs CBC & BMP: 02/27/17 02:55 02/27/17 02:55
--- NOTE | 2017-02-27 07:10 | EKG Report ---
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
[2017-02-27] MEDS: INSULIN LISPRO 100 UNIT/ML SUBCUT SCH ×4 (07:50→20:01)
[2017-02-27] MEDS: PIPERACILLIN/TAZOBACTAM 3,375 MG in SODIUM CHLORIDE 0.9% 100 ML IV SCH ×2 (07:59→20:26)
--- NOTE | 2017-02-27 08:28 | Cardiology Progress Note ---
<Cee Plasencia E - Last Filed: 02/27/17 08:28> Assessment and Plan (1) Chest pain Status: Resolved Assessment and plan: SEE PLAN OF CARE LISTED BELOW Current Visit: Yes (2) Sepsis Status: Acute Assessment and plan: SEE PLAN OF CARE LISTED BELOW Current Visit: Yes (3) Renal failure Status: Acute Assessment and plan: SEE PLAN OF CARE LISTED BELOW Current Visit: Yes (4) Atrial fibrillation with rapid ventricular response Status: Acute Assessment and plan: SEE PLAN OF CARE LISTED BELOW Current Visit: Yes (5) Diabetes mellitus Status: Chronic Current Visit: Yes Qualifiers: Diabetes mellitus type: type 2 (6) Chronic pain syndrome Status: Chronic Assessment and plan: SEE PLAN OF CARE LISTED BELOW Current Visit: Yes (7) Abnormal abdominal CT scan Status: Acute Assessment and plan: SEE PLAN OF CARE LISTED BELOW Current Visit: Yes (8) Anemia Status: Acute Assessment and plan: SEE PLAN OF CARE LISTED BELOW Current Visit: Yes (9) Leukocytosis Status: Acute Assessment and plan: SEE PLAN OF CARE LISTED BELOW Current Visit: Yes (10) History of gastric ulcer Status: Chronic Assessment and plan: SEE PLAN OF CARE LISTED BELOW Current Visit: Yes Cardiology - PN: Subj Interval history: CEE TO COMPLETE. No more chest pain. Levo still on. WBC decreasing, looks much better. Trops negative. Exam (Progress Note) - Constitutional Vitals: Period Temp Pulse Resp BP Sys/Olson Pulse Ox Last 24 Hr 97.5 F-98.1 F 82-138 10-22 59-154/40-119 90-99 Result/EKG - Labs CBC & BMP: 02/27/17 02:55 02/27/17 02:55 Labs: Laboratory Results - last 24 hr 02/26/17 02/26/17 02/26/17 11:17 11:46 14:41 WBC RBC Hgb Hct MCV MCH MCHC RDW Plt Count MPV Neut % (Auto) Lymph % (Auto) [place] % (Auto) Eos % (Auto) Baso % (Auto) Neut # (Auto) Lymph # (Auto) [place] # (Auto) Eos # (Auto) Baso # (Auto) Immature Gran % Nucleated RBC % Immature Gran # Nucleated RBCs # Sodium Potassium Chloride Carbon Dioxide Anion Gap BUN Creatinine GFR Calculation BUN/Creatinine Ratio Glucose POC Glucose 152 H Calculated Osmolality Calcium Magnesium Total Bilirubin AST ALT Alkaline Phosphatase Total Creatine Kinase 357 H CK-MB (CK-2) 7.5 H CK and CKMB Interp 2.1 Troponin I < 0.015 Total Protein Albumin Globulin Albumin/Globulin Ratio Carcinoembryonic Ag 1.3 Free T4 TSH 3rd Generation 02/26/17 02/26/17 02/26/17 16:12 17:30 20:42 WBC RBC Hgb Hct MCV MCH MCHC RDW Plt Count MPV Neut % (Auto) Lymph % (Auto) [place] % (Auto) Eos % (Auto) Baso % (Auto) Neut # (Auto) Lymph # (Auto) [place] # (Auto) Eos # (Auto) Baso # (Auto) Immature Gran % Nucleated RBC % Immature Gran # Nucleated RBCs # Sodium 141 Potassium 4.6 Chloride 109 H Carbon Dioxide 18 L Anion Gap 18.6 H BUN 68 H D Creatinine 4.90 H GFR Calculation 15 BUN/Creatinine Ratio 13.00 Glucose 181 H POC Glucose 197 H 199 H Calculated Osmolality 305.3 H Calcium 6.5 L Magnesium Total Bilirubin AST ALT Alkaline Phosphatase Total Creatine Kinase CK-MB (CK-2) CK and CKMB Interp Troponin I Total Protein Albumin Globulin Albumin/Globulin Ratio Carcinoembryonic Ag Free T4 TSH 3rd Generation 02/26/17 02/26/17 02/27/17 22:56 Unknown 02:55 WBC 12.7 H D RBC 3.45 L Hgb 10.1 L Hct 31.6 L MCV 91.6 MCH 29 MCHC 32.0 RDW 15.2 Plt Count 261 MPV 11.5 Neut % (Auto) 80.2 H Lymph % (Auto) 7.8 L [place] % (Auto) 9.9 Eos % (Auto) 1.3 Baso % (Auto) 0.3 Neut # (Auto) 10.2 H Lymph # (Auto) 1.0 L [place] # (Auto) 1.3 H Eos # (Auto) 0.2 Baso # (Auto) 0.0 Immature Gran % 0.5 Nucleated RBC % 0.0 Immature Gran # 0.06 Nucleated RBCs # 0.00 Sodium 141 Potassium 4.7 Chloride 110 H Carbon Dioxide 18 L Anion Gap 17.7 H BUN 70 H Creatinine 4.90 H GFR Calculation 15 BUN/Creatinine Ratio 14.00 Glucose 181 H POC Glucose Calculated Osmolality 306.3 H Calcium 6.6 L Magnesium Total Bilirubin 0.50 AST 18 ALT 16 Alkaline Phosphatase 97 Total Creatine Kinase 346 H CK-MB (CK-2) 7.1 H CK and CKMB Interp 2.1 Troponin I < 0.015 Total Protein 5.9 L Albumin 3.0 L Globulin 2.9 Albumin/Globulin Ratio 1.0 L Carcinoembryonic Ag Free T4 TSH 3rd Generation 02/27/17 02/27/17 02:55 07:34 WBC RBC Hgb Hct MCV MCH MCHC RDW Plt Count MPV Neut % (Auto) Lymph % (Auto) [place] % (Auto) Eos % (Auto) Baso % (Auto) Neut # (Auto) Lymph # (Auto) [place] # (Auto) Eos # (Auto) Baso # (Auto) Immature Gran % Nucleated RBC % Immature Gran # Nucleated RBCs # Sodium 143 Potassium 4.7 Chloride 111 H Carbon Dioxide 20 L Anion Gap 16.7 H BUN 57 H D Creatinine 4.00 H GFR Calculation 19 BUN/Creatinine Ratio 14.00 Glucose 147 H POC Glucose 158 H Calculated Osmolality 303.0 Calcium 7.1 L Magnesium 1.6 L Total Bilirubin AST ALT Alkaline Phosphatase Total Creatine Kinase CK-MB (CK-2) CK and CKMB Interp Troponin I Total Protein Albumin Globulin Albumin/Globulin Ratio Carcinoembryonic Ag Free T4 1.12 TSH 3rd Generation 0.185 L <Yovani Mack - Last Filed: 02/27/17 08:58> Exam (Progress Note) - Constitutional Vitals: Period Temp Pulse Resp BP Sys/Olson Pulse Ox Last 24 Hr 97.5 F-98.1 F 82-138 11-22 59-154/40-119 90-99 Result/EKG - Labs CBC & BMP: 02/27/17 02:55 02/27/17 02:55 Labs: Laboratory Results - last 24 hr 02/26/17 02/26/17 02/26/17 11:17 11:46 14:41 WBC RBC Hgb Hct MCV MCH MCHC RDW Plt Count MPV Neut % (Auto) Lymph % (Auto) [place] % (Auto) Eos % (Auto) Baso % (Auto) Neut # (Auto) Lymph # (Auto) [place] # (Auto) Eos # (Auto) Baso # (Auto) Immature Gran % Nucleated RBC % Immature Gran # Nucleated RBCs # Sodium Potassium Chloride Carbon Dioxide Anion Gap BUN Creatinine GFR Calculation BUN/Creatinine Ratio Glucose POC Glucose 152 H Calculated Osmolality Calcium Magnesium Total Bilirubin AST ALT Alkaline Phosphatase Total Creatine Kinase 357 H CK-MB (CK-2) 7.5 H CK and CKMB Interp 2.1 Troponin I < 0.015 Total Protein Albumin Globulin Albumin/Globulin Ratio Carcinoembryonic Ag 1.3 Free T4 TSH 3rd Generation 02/26/17 02/26/17 02/26/17 16:12 17:30 20:42 WBC RBC Hgb Hct MCV MCH MCHC RDW Plt Count MPV Neut % (Auto) Lymph % (Auto) [place] % (Auto) Eos % (Auto) Baso % (Auto) Neut # (Auto) Lymph # (Auto) [place] # (Auto) Eos # (Auto) Baso # (Auto) Immature Gran % Nucleated RBC % Immature Gran # Nucleated RBCs # Sodium 141 Potassium 4.6 Chloride 109 H Carbon Dioxide 18 L Anion Gap 18.6 H BUN 68 H D Creatinine 4.90 H GFR Calculation 15 BUN/Creatinine Ratio 13.00 Glucose 181 H POC Glucose 197 H 199 H Calculated Osmolality 305.3 H Calcium 6.5 L Magnesium Total Bilirubin AST ALT Alkaline Phosphatase Total Creatine Kinase CK-MB (CK-2) CK and CKMB Interp Troponin I Total Protein Albumin Globulin Albumin/Globulin Ratio Carcinoembryonic Ag Free T4 TSH 3rd Generation 02/26/17 02/26/17 02/27/17 22:56 Unknown 02:55 WBC 12.7 H D RBC 3.45 L Hgb 10.1 L Hct 31.6 L MCV 91.6 MCH 29 MCHC 32.0 RDW 15.2 Plt Count 261 MPV 11.5 Neut % (Auto) 80.2 H Lymph % (Auto) 7.8 L [place] % (Auto) 9.9 Eos % (Auto) 1.3 Baso % (Auto) 0.3 Neut # (Auto) 10.2 H Lymph # (Auto) 1.0 L [place] # (Auto) 1.3 H Eos # (Auto) 0.2 Baso # (Auto) 0.0 Immature Gran % 0.5 Nucleated RBC % 0.0 Immature Gran # 0.06 Nucleated RBCs # 0.00 Sodium 141 Potassium 4.7 Chloride 110 H Carbon Dioxide 18 L Anion Gap 17.7 H BUN 70 H Creatinine 4.90 H GFR Calculation 15 BUN/Creatinine Ratio 14.00 Glucose 181 H POC Glucose Calculated Osmolality 306.3 H Calcium 6.6 L Magnesium Total Bilirubin 0.50 AST 18 ALT 16 Alkaline Phosphatase 97 Total Creatine Kinase 346 H CK-MB (CK-2) 7.1 H CK and CKMB Interp 2.1 Troponin I < 0.015 Total Protein 5.9 L Albumin 3.0 L Globulin 2.9 Albumin/Globulin Ratio 1.0 L Carcinoembryonic Ag Free T4 TSH 3rd Generation 02/27/17 02/27/17 02:55 07:34 WBC RBC Hgb Hct MCV MCH MCHC RDW Plt Count MPV Neut % (Auto) Lymph % (Auto) [place] % (Auto) Eos % (Auto) Baso % (Auto) Neut # (Auto) Lymph # (Auto) [place] # (Auto) Eos # (Auto) Baso # (Auto) Immature Gran % Nucleated RBC % Immature Gran # Nucleated RBCs # Sodium 143 Potassium 4.7 Chloride 111 H Carbon Dioxide 20 L Anion Gap 16.7 H BUN 57 H D Creatinine 4.00 H GFR Calculation 19 BUN/Creatinine Ratio 14.00 Glucose 147 H POC Glucose 158 H Calculated Osmolality 303.0 Calcium 7.1 L Magnesium 1.6 L Total Bilirubin AST ALT Alkaline Phosphatase Total Creatine Kinase CK-MB (CK-2) CK and CKMB Interp Troponin I Total Protein Albumin Globulin Albumin/Globulin Ratio Carcinoembryonic Ag Free T4 1.12 TSH 3rd Generation 0.185 L
--- NOTE | 2017-02-27 08:49 | Nephrology Progress Note ---
Nephrology - PN: Subj Interval history: Mr. Murphy is seen in follow-up of his acute renal impairment. His he is much improved with better blood pressure but still requiring pressors. Has a pressure of approximately 100 systolic on low-dose Levophed. His acidosis is improved now with a measured bicarb 20. He continues to receive sodium acetate and his IV fluid. Creatinine is down to 4 from a value of 7.2 on arrival. We will continue with IV fluids and support and he should be able to wean off of the pressors. Exam (PN)-Nephrology - Vital Signs Vital signs: Period Temp Pulse Resp BP Sys/Olson Pulse Ox Last 24 Hr 97.5 F-98.1 F 82-138 11-22 59-154/40-119 90-99 - Lab 02/27/17 02:55 02/27/17 02:55 Most recent lab results Calcium 7.1 MG/DL (8.5-10.1) L 02/27/17 02:55 Magnesium 1.6 MG/DL (1.8-2.4) L 02/27/17 02:55 Assessment and Plan (1) Renal failure Status: Acute Assessment and plan: Continue fluid and bicarb Current Visit: Yes (2) Diabetes mellitus Status: Chronic Current Visit: Yes Qualifiers: Diabetes mellitus type: type 2 (3) Atrial fibrillation with rapid ventricular response Status: Acute Current Visit: Yes
[2017-02-27] MEDS ORDERED: SODIUM CHLORIDE 0.9% 500 ML IV ONE (08:54)
[2017-02-27] MEDS: DULoxetine 30 MG CAPSULE PO SCH (09:22)
[2017-02-27] MEDS: MORPHINE ER 30 MG TABLET PO SCH ×2 (09:25→20:27)
[2017-02-27] MEDS: CILOSTAZOL 50 MG TABLET PO SCH (09:28)
[2017-02-27] MEDS: ASPIRIN EC 81 MG TABLET PO SCH (09:28)
[2017-02-27] MEDS: CALCIUM CARBONATE CHEW 500 MG TABLET PO SCH ×3 (09:29→20:27)
[2017-02-27] MEDS: METOPROLOL SUCCINATE XL 25 MG TABLET PO SCH ×2 (09:30→20:27)
[2017-02-27] MEDS: PANTOPRAZOLE 40 MG VIAL IV SCH ×2 (09:36→20:27)
[2017-02-27] MEDS: MAGNESIUM SULF RIDER 2 GM in PREMIX 1 EACH IV PRN (09:49)
[2017-02-27] MEDS: METOPROLOL TARTRATE 5 MG/5 ML VIAL IV SCH ×3 (09:58→10:17)
[2017-02-27] MEDS ORDERED: ZIPRASIDONE 20 MG/1 ML VIAL IM ONE (12:01)
--- NOTE | 2017-02-27 12:15 | Hospitalist Progress Note ---
Assessment and Plan (1) Sepsis Status: Acute Assessment and plan: 1)sepsis due to GI source most likely- cultures negative so far. Continue zosyn. BP still requiring a very small amount of levophed- goal today is to get him off the pressor. IVF with acetate continued and his bicarb has increased to 20. He remains afebrile. WBC down. No syncope symptoms as he had prior to admission. He also had diarrhea in the week prior to admission but not here. 2)afib with RVR- dilt IV stopped by cards, toprol started. will eventually need anticoagulation as he took prior to his bleeding ulcers and surgery- awaiting records of that hospital stay prior to starting any. was on Dilt CD as outpatient. On lovenox 30mg/day. 3)renal failure- creatinine down to 4 form admit level of 7.2. GOod UOP. continue hydration. 4)DM- on SSI. no home meds for diabetes listed on chart. check hgb a1c 5)chronic pain syndrome- on home regimen of MS singh, added hydrocodone, to follow up with Dr Cherry as outpatient. 6)psych- paranoid, tearful today. try Geodon and monitor. may need to be repeated. 7)social- his cannot come to the hospital because she is disabled from MS. Current Visit: Yes (2) Renal failure Status: Acute Current Visit: Yes (3) Atrial fibrillation with rapid ventricular response Status: Acute Current Visit: Yes (4) Diabetes mellitus Status: Chronic Current Visit: Yes Qualifiers: Diabetes mellitus type: type 2 (5) Chronic pain syndrome Status: Chronic Current Visit: Yes (6) Abnormal abdominal CT scan Status: Acute Current Visit: Yes Hospitalist: Subjective Interval history: Mr Murphy reported this morning that he was feeling good. No more chest pain. No shortness of breath. He is hungry for real food. Since I saw him first thing this morning, he has become tearful and fearful, and uncooperative. He has baseline dementia. Exam - Constitutional Vitals: Period Temp Pulse Resp BP Sys/Olson Pulse Ox Last 24 Hr 97.6 F-98.1 F 82-138 11-98 63-154/44-119 91-99 General appearance: mild distress (tearful), over weight - Eye Eye exam: Present: EOMI. Absent: scleral icterus Pupils: Present: LANEY - Respiratory Respiratory exam: Present: clear to auscultation bilaterally - Cardiovascular Cardiovascular exam: Present: irregular rhythm, tachycardia - GI/Abdominal GI/Abdominal exam: Present: normal bowel sounds, soft. Absent: tenderness - Extremities Exam Extremities exam: Absent: edema - Neurological Exam Neurological exam: Present: alert, oriented X3 (speech plain, some word finding problems, does not always reply appropriately to questions. ), CN II-XII intact. Absent: motor sensory deficit - Skin Skin exam: Present: warm, dry Results - Labs CBC & BMP: 02/27/17 02:55 02/27/17 02:55 Lab Results: I have reviewed the past 24 hour labs
--- NOTE | 2017-02-27 14:55 | Fluoroscopy Report ---
Exam: FL barium enema w air contrast Date: 02/27/2017 12:00 AM Comparison: CT abdomen and pelvis 02/25/2017 Indication: Abnormal CT with transition zone in these descending colon just below the splenic flexure. Technique:[Fluoroscopy time of 2 minutes 47 seconds documented. 38 images were saved including fluoroscopy and overhead films.] Findings: On the gearcase assembler film, evidence of a right femoral catheter in the right common iliac location. Prior L1 kyphoplasty with degenerative changes and minimal dextroscoliosis. Mild gaseous distention of bowel. Under fluoroscopic control, barium and minimal air instilled into the colon in retrograde manner. It was feasible to fill the colon to the level of the cecum. No reflux into the terminal ileum. Incomplete cleansing of the colon with no constricting lesion identified. Minimal diverticulosis. Impression: Incomplete cleansing of the colon which limits evaluation of the colon. No obstructing lesion is identified specifically in the upper descending colon location. Minimal diverticulosis. PROCEDURE INTERPRETED AT [facility] DEPARTMENT OF RADIOLOGY Final Report Signed by: Dr. Mahnaz Dey
[2017-02-27] MEDS: NOREPINEPHRINE 8 MG in SODIUM CHLORIDE 0.9% 242 ML IV SCH (15:26)
[2017-02-27] MEDS: ENOXAPARIN 30 MG/0.3 ML SYRINGE SUBCUT SCH (20:26)
[2017-02-27] MEDS: ZIPRASIDONE 20 MG/1 ML VIAL IM PRN (20:26)
[2017-02-27] MEDS: BIMATOPROST 0.01% OPH SOLN 2.5 ML BOTTLE BOTH EYES SCH (20:27)
[2017-02-27] MEDS: MORPHINE 2 MG/1 ML SYRINGE IV PRN (23:23)
[2017-02-28] MEDS: metroNIDAZOLE INJ 500 MG in PREMIX 1 EACH IV SCH ×3 (00:45→15:32)
[2017-02-28] MEDS: METOPROLOL TARTRATE 5 MG/5 ML VIAL IV PRN ×4 (00:46→10:44)
[2017-02-28] MEDS: ZIPRASIDONE 20 MG/1 ML VIAL IM PRN ×2 (01:28→06:19)
[2017-02-28] MEDS: SODIUM ACETATE 50 MEQ in SODIUM CHLORIDE 0.45% 1,000 ML IV SCH (02:55)
[2017-02-28 06:42] LABS: Basophils # 0.1 10*3/uL (0.0-0.2); Basophils % 0.7 % (0.0-0.8); Eosinophils # 0.4 10*3/uL (0.0-0.87); Eosinophils % 4.8 % (0.00-10.9); Hematocrit 28.8 VOL% (42.0-52.0); Hemoglobin 9.6 GM/DL (14.0-18.0); Immature Granulocytes % 0.4 %; Immature Granulocytes Absolute 0.03 #; Lymphocytes # 1.9 10*3/uL (1.4-4.0); Lymphocytes % 24.1 % (21.2-54.2); Mean Corpuscular HGB Conc 33.3 GM/DL (32-36); Mean Corpuscular Hemoglobin 30 PG (27-34); Mean Platelet Volume 11.4 FL (9.6-12.0); Monocytes # 0.9 10*3/uL (0.11-0.8); Monocytes % 11.5 % (1.7-12.7); Neutrophils # 4.7 10*3/uL (1.4-7.4); Neutrophils % 58.5 % (38.7-73.9); Platelet Count 256 T/CUMM (130-400); Red Cell Distribution Width 15.4 % (9.3-17.3); White Blood Count 8.1 T/CUMM (4-12)
[2017-02-28 07:12] LABS: Calcium 7.5 MG/DL (8.5-10.1); Osmolality,Calculated 292.8 MOS/KG (273-304)
--- NOTE | 2017-02-28 07:50 | Nephrology Progress Note ---
Nephrology - PN: Subj Interval history: Patient is resting according to nursing reports he does get agitated at night. Of note patient's heart rate is still elevated at times does get Lopressor on a as needed basis. Serum creatinine is noted to be down to 1.9 today. Exam (PN)-Nephrology - Vital Signs Vital signs: Period Temp Pulse Resp BP Sys/Olson Pulse Ox Last 24 Hr 97.4 F-98.7 F 75-136 11-98 59-149/45-104 86-99 - General Appearance General appearance: well-developed, well-nourished EENT: ATNC Neck: supple Respiratory: clear Cardiology: no edema, regular rate, irregular rhythm Gastrointestinal: normoactive bowel sounds, no tenderness Integumentary: no rash Musculoskeletal: no clubbing - Lab 02/28/17 06:26 02/28/17 06:26 Most recent lab results Calcium 7.5 MG/DL (8.5-10.1) L 02/28/17 06:26 Magnesium 1.6 MG/DL (1.8-2.4) L 02/27/17 02:55 Assessment and Plan (1) Atrial fibrillation Status: Chronic Current Visit: Yes (2) Renal failure Status: Chronic Assessment and plan: Appears to be acute on chronic renal failure for this patient. Renal function is improving. Current Visit: Yes Qualifiers: Chronic kidney disease stage: stage 3 (moderate) (3) Anemia Status: Chronic Current Visit: Yes Qualifiers: Chronic kidney disease stage: stage 3 (moderate)
[2017-02-28] MEDS: INSULIN LISPRO 100 UNIT/ML SUBCUT SCH ×4 (08:02→21:03)
[2017-02-28] MEDS: DULoxetine 30 MG CAPSULE PO SCH (08:14)
[2017-02-28] MEDS: ASPIRIN EC 81 MG TABLET PO SCH (08:15)
[2017-02-28] MEDS: METOPROLOL SUCCINATE XL 25 MG TABLET PO SCH (08:15)
[2017-02-28] MEDS: MORPHINE ER 30 MG TABLET PO SCH ×2 (08:16→21:53)
[2017-02-28] MEDS: CALCIUM CARBONATE CHEW 500 MG TABLET PO SCH ×3 (08:18→21:53)
[2017-02-28] MEDS: PANTOPRAZOLE 40 MG VIAL IV SCH ×2 (08:21→21:53)
[2017-02-28] MEDS: PIPERACILLIN/TAZOBACTAM 3,375 MG in SODIUM CHLORIDE 0.9% 100 ML IV SCH (09:08)
--- NOTE | 2017-02-28 09:19 | Cardiology Progress Note ---
Assessment and Plan (1) Sepsis Status: Acute Assessment and plan: September 29, 2016 summary: 1. Atrial fibrillation with RVR (uncertain baseline rhythm) complicated by hypotension/sepsis 2. EF greater than 70% without significant valvular disease 3. Remote smoker with some COPD without active wheezing; give metoprolol 5 g IV 3 and then Toprol p.o. 25 mg twice daily; will hold Levophed and diltiazem ( the latter is likely exacerbating hypotension), make adjustments as needed. 4. Low substernal/epigastric chest discomfort resolved since yesterday, and he is ruled out for ND; this chest pain is very atypical, but I do not suspect ACS. 5. Difficult history given his Alzheimer's "I cannot remember what happened" 6. Acute renal failure is clearly improving with good urine output; nephrology service is following. September 30, 2016: 1. Mr. Murphy is much improved although he is confused (uncertain baseline) he is hemodynamically stable without complaint 2. Atrial fibrillation still has RVR; increase Toprol to 50 mils twice daily with IV metoprolol as needed. 3. Acute renal failure is dramatically improved, and hypotension is long resolved. 4. He can be transferred to the floor from cardiac standpoint 5. Echocardiogram showed EF of at least 70% 6. No return of his atypical chest discomfort 7. Apparent Alzheimer's disease. Current Visit: Yes (2) Renal failure Status: Chronic Current Visit: Yes Qualifiers: Chronic kidney disease stage: stage 3 (moderate) (3) Atrial fibrillation with rapid ventricular response Status: Acute Current Visit: Yes Cardiology - PN: Subj Interval history: Mr. Murphy is confused this morning but it seems to be in no distress. He does not know where he has but when I told in the hospital he seems to agree with this. I asked him the date and he replied "Luis is coming back", think is coming back this year". He does not have any complaints. He does not appear to be dyspneic. He is a bit self-effacing "I am a dirty mass". Exam (Progress Note) - Constitutional Vitals: Period Temp Pulse Resp BP Sys/Olson Pulse Ox Last 24 Hr 97.4 F-98.7 F 75-136 11-25 66-149/45-104 86-99 General appearance: no acute distress, over weight, disheveled - Head Head exam: Present: normal inspection, normocephalic, atraumatic - Neck Neck exam: Present: normal inspection - Respiratory Respiratory exam: Absent: stridor, wheezes - Cardiovascular Cardiovascular exam: Present: tachycardia. Absent: diastolic murmur, rubs - GI/Abdominal GI/Abdominal exam: Present: soft. Absent: tenderness - Extremities Exam Extremities exam: Absent: edema Result/EKG - Labs CBC & BMP: 02/28/17 06:26 02/28/17 06:26 Labs: Laboratory Results - last 24 hr 02/27/17 02/27/17 02/27/17 11:24 16:53 20:01 WBC RBC Hgb Hct MCV MCH MCHC RDW Plt Count MPV Neut % (Auto) Lymph % (Auto) Castro % (Auto) Eos % (Auto) Baso % (Auto) Neut # (Auto) Lymph # (Auto) Castro # (Auto) Eos # (Auto) Baso # (Auto) Immature Gran % Nucleated RBC % Immature Gran # Nucleated RBCs # Sodium Potassium Chloride Carbon Dioxide Anion Gap BUN Creatinine GFR Calculation BUN/Creatinine Ratio Glucose POC Glucose 207 H 220 H 85 Calculated Osmolality Calcium 02/28/17 02/28/17 02/28/17 06:26 06:26 06:59 WBC 8.1 D RBC 3.20 L Hgb 9.6 L Hct 28.8 L MCV 90.0 MCH 30 MCHC 33.3 RDW 15.4 Plt Count 256 MPV 11.4 Neut % (Auto) 58.5 Lymph % (Auto) 24.1 Castro % (Auto) 11.5 Eos % (Auto) 4.8 Baso % (Auto) 0.7 Neut # (Auto) 4.7 Lymph # (Auto) 1.9 Castro # (Auto) 0.9 H Eos # (Auto) 0.4 Baso # (Auto) 0.1 Immature Gran % 0.4 Nucleated RBC % 0.0 Immature Gran # 0.03 Nucleated RBCs # 0.00 Sodium 144 Potassium 4.0 Chloride 110 H Carbon Dioxide 28 Anion Gap 10.0 BUN 33 H Creatinine 1.90 H GFR Calculation 48 BUN/Creatinine Ratio 17.00 Glucose 99 POC Glucose 100 Calculated Osmolality 292.8 Calcium 7.5 L
[2017-02-28] MEDS: QUEtiapine 25 MG TABLET PO SCH ×2 (09:29→21:53)
[2017-02-28] MEDS ORDERED: METOPROLOL SUCCINATE XL 50 MG TABLET PO ONE (10:07)
[2017-02-28] MEDS: SODIUM CHLORIDE 0.45% 1,000 ML IV SCH (10:21)
[2017-02-28] MEDS ORDERED: ZIPRASIDONE 20 MG/1 ML VIAL IM ONE (11:00)
[2017-02-28] MEDS ORDERED: MAGNESIUM HYDROXIDE SUSP 30 ML UDCUP PO ONE (11:28)
--- NOTE | 2017-02-28 11:45 | Gastrointestinal Progress Note ---
Assessment and Plan (1) Abnormal abdominal CT scan Status: Acute Assessment and plan: The patient does have some abdominal distention with a history of alternating diarrhea and constipation. Is unclear in my mind whether this represents a diverticular stricture versus diverticulitis versus artifact from CT evaluation with dilation above the segments due to constipation and apparent transition point. I think if there was diverticulitis the radiologist would have commented on fat stranding around the colon which does not appear to be present. So linking the CT scan findings and the patient's elevated white blood cell count may not be realistic. I think a simple barium enema would evaluate this area nicely and we can obtain the patient's old colonoscopy report from Dr. Salazar/[facility] [place] for evaluation. The patient will be unlikely to have a colon cancer this close to recent colonoscopy done at [place] (by report this occurred in August 2016). Further recommendations post evaluation of the previous scope report and barium enema when this patient is well enough to undergo a trip to radiology and rectal contrast. Anticipate this may be in the next day or 2. 02/27/17--We Are still awaiting colonoscopy reports from [facility] at this point ( requested). Patient remains on levophed and is not able to go for the barium enema yet. White blood cell count is dropping currently down from 20K to 12.7 K today. We do not really see a diverticulitis, there may be noninflammatory kinking in the colon or this may be a artifact which we should be able to tell very quickly with a single column barium enema when the patient is able to tolerate this. In the meantime I may give him a small enema to stimulate forward flow with some soapsuds. Continue clear liquid diet as tolerated. If he develops vomiting we can consider using an NG tube for suctioning his stomach. 02/28/17--No further results were obtained upon contacting [facility] concern is patient's last colonoscopy report. The patient had his barium enema done yesterday after he was able to come off of his pressor agents. This demonstrated good flow all the way up to the cecum with no gross evidence of constricting lesion or transition point. The patient probably needs to help get rid of some of the contrast with milk of magnesia but otherwise is doing quite well. His abdomen seems a great deal less distended. Note his white count is improved and no constricting lesion is seen I will sign off the case. He is invited to follow-up with his drugless physician at [facility] has needed. Current Visit: Yes (2) Anemia Status: Chronic Assessment and plan: Hematocrit is dropped from 35.0-->33.6%. I suspect this may be multifactorial due to renal dysfunction, chronic disease, possible gastritis and possibly nutritional. He is having some scant rectal bleeding which may be due to hemorrhoids. Will have to review the previous colonoscopy report, but I doubt there is significant bleeding from the colon such as might be seen with a diverticular bleed or an ischemic colitis. We will continue to follow the hematocrit during his hospital stay. 02/27/17--Observe. The hematocrit is down to 31.6 today. No gross evidence of hematemesis or active bleeding per rectum but then again the patient is not having any stools either Current Visit: Yes Qualifiers: Chronic kidney disease stage: stage 3 (moderate) (3) Leukocytosis Status: Acute Assessment and plan: Leukocytosis with unclear etiology. Again while this may be related to the patient's underlying GI abnormalities we need to check the colon to see if there is evidence of colitis and search for other potential sources of infection , pneumonia etc. We will watch for improvement in the patient's white blood cell count over time on antibiotics. I have asked the nursing staff to collect stool cultures and fecal white blood cells in addition to the C. difficile order previously written. 02/27/17--This is improved already--continue antibiotics as we are doing. 02/28/17--Leukocytosis is now resolved. Patient's white blood cell count is 8K. Current Visit: Yes (4) History of gastric ulcer Status: Chronic Assessment and plan: The patient's states that he had a recent hospitalization at [place] which were returned to get the results of concerning his gastric ulcer. We will continue to watch the patient's hematocrit over time and observe for bright red blood per rectum versus melena indicating potential source. While we could consider doing both EGD and colonoscopy patient's had both of these done at [place] within the last year by report. I would like to review these records before considering repeating the tests. Nursing staff has been asked to have the patient sign a release of information to this and. 02/27/17--Await old records from [facility] for review however the patient's hematocrit seems relatively stable at this point despite anticoagulation with aspirin and lovenox. 02/28/17--This patient has mild anemia and prior history of gastric ulcer, if hematocrit remained stable could certainly continue the aspirin, and Lovenox. He is on pantoprazole 40 mg twice daily and will continue this for the duration of his hospital stay. We can consider upper endoscopy if patient has gerhard blood loss noted. Please contact me if that should occur, will sign off the case for the present time. Current Visit: Yes Gastroenterology - PN: Subj Interval history: No new complaints but the patient is quite demented, seems confused and states that his should be sending him to senior living shortly. He cannot elaborate on this further. He does not feel any abdominal distention. He has no new complaints concerning his GI tract. He is off the pressors at this point and his white count is now normal at 8. Exam (Progress Note) - Constitutional Vitals: Period Temp Pulse Resp BP Sys/Olson Pulse Ox Last 24 Hr 97.4 F-98.7 F 84-136 11-25 66-152/45-104 87-99 General appearance: no acute distress - Head Head exam: Present: normal inspection - Eye Eye exam: Present: EOMI Pupils: Present: LANEY - Respiratory Respiratory exam: Present: clear to auscultation bilaterally - Cardiovascular Cardiovascular exam: Present: regular rate and rhythm - GI/Abdominal GI/Abdominal exam: Present: normal bowel sounds, soft. Absent: distended, guarding, tenderness, rebound - Extremities Exam Extremities exam: Present: normal inspection - Neurological Exam Neurological exam: Present: alert - Psychiatric Psychiatric exam: Present: agitated - Skin Skin exam: Present: warm Results - Labs CBC & BMP: 02/28/17 06:26 02/28/17 06:26
--- NOTE | 2017-02-28 13:48 | Hospitalist Progress Note ---
Assessment and Plan (1) Sepsis Status: Acute Assessment and plan: 1)sepsis- resolved. Stop IV antibiotics. Begin oral flagyl and levaquin to cover abdominal infection- this illness started with diarrhea and abd pain. acidosis resolved. stop IVF with acetate. Begin half normal saline since he is eating ok. No luck getting records from [facility] regarding his admit for bleeding ulcers recently per patient's [facility]. 2)afib with RVR- persists but heart rate has improved when he is calm after the addition of toprol. Dose increased today. On lovenox SQ 30mg. No anticoagulation because it has been held since recent surgery for bleeding ulcers. 3)renal failure- resolving quickly with IVF. 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 4)DM- on SSi, hemoglobin A1c pending. last one was 5.3. 5)chronic pain syndrome- on ER morphine and percocet at home- confirmed he doesn 't take anything else wieth his today. 6)psych- try Seroquel for delirium on chronic dementia. Geodon if needed. 7)social- cannot come to hospital because jeffy is diabled. She is very helpful tohim when he talks to her on the phone. 8)dispo- to floor with 1:1 obs. Current Visit: Yes (2) Renal failure Status: Chronic Current Visit: Yes Qualifiers: Chronic kidney disease stage: stage 3 (moderate) (3) Atrial fibrillation with rapid ventricular response Status: Acute Current Visit: Yes (4) Diabetes mellitus Status: Chronic Current Visit: Yes Qualifiers: Diabetes mellitus type: type 2 (5) Chronic pain syndrome Status: Chronic Current Visit: Yes (6) Abnormal abdominal CT scan Status: Acute Current Visit: Yes Hospitalist: Subjective Interval history: Mr Murphy has been off pressors since 3pm yesterday. He remains confused and intermittently paranoid. He is eating well. GI has signed off the case. His sepsis has resolved and cultures are all negative. He is making good urine and his creatinine is down to 1.9. He is reassured for a while after talking to his by phone. Exam - Constitutional Vitals: Period Temp Pulse Resp BP Sys/Olson Pulse Ox Last 24 Hr 96.8 F-98.7 F 84-143 11-110 66-152/39-104 87-99 General appearance: no acute distress, over weight - Head Head exam: Present: normocephalic, atraumatic - Eye Eye exam: Present: EOMI. Absent: scleral icterus - Respiratory Respiratory exam: Present: clear to auscultation bilaterally - Cardiovascular Cardiovascular exam: Present: regular rate and rhythm - GI/Abdominal GI/Abdominal exam: Present: normal bowel sounds, soft. Absent: tenderness - Extremities Exam Extremities exam: Absent: edema Results - Labs CBC & BMP: 02/28/17 06:26 02/28/17 06:26 Lab Results: I have reviewed the past 24 hour labs
[2017-02-28] MEDS ORDERED: cefTRIAXone 1,000 MG in SODIUM CHLORIDE 0.9% 100 ML IV SCH (16:29)
[2017-02-28] MEDS ORDERED: ZIPRASIDONE 20 MG/1 ML VIAL IM PRN (19:26)
[2017-02-28] MEDS: ENOXAPARIN 30 MG/0.3 ML SYRINGE SUBCUT SCH (21:53)
[2017-02-28] MEDS: METOPROLOL SUCCINATE XL 50 MG TABLET PO SCH (21:53)
[2017-02-28] MEDS: BIMATOPROST 0.01% OPH SOLN 2.5 ML BOTTLE BOTH EYES SCH (22:36)
[2017-03-01] MEDS: QUEtiapine 25 MG TABLET PO SCH ×3 (00:01→21:11)
[2017-03-01] MEDS: METOPROLOL SUCCINATE XL 50 MG TABLET PO SCH (00:01)
[2017-03-01 05:06] LABS: Basophils # 0.1 10*3/uL (0.0-0.2); Basophils % 0.8 % (0.0-0.8); Eosinophils # 0.3 10*3/uL (0.0-0.87); Eosinophils % 4.1 % (0.00-10.9); Hematocrit 27.7 VOL% (42.0-52.0); Hemoglobin 9.1 GM/DL (14.0-18.0); Immature Granulocytes % 0.4 %; Immature Granulocytes Absolute 0.03 #; Lymphocytes # 1.3 10*3/uL (1.4-4.0); Lymphocytes % 17.4 % (21.2-54.2); Mean Corpuscular HGB Conc 32.9 GM/DL (32-36); Mean Corpuscular Hemoglobin 30 PG (27-34); Mean Corpuscular Volume 90.2 FL (87-102); Mean Platelet Volume 11.7 FL (9.6-12.0); Monocytes # 0.7 10*3/uL (0.11-0.8); Monocytes % 9.8 % (1.7-12.7); Neutrophils % 67.5 % (38.7-73.9); Platelet Count 276 T/CUMM (130-400); Red Blood Count 3.07 MC/CUMM (3.8-5.5); Red Cell Distribution Width 15.3 % (9.3-17.3); White Blood Count 7.4 T/CUMM (4-12)
[2017-03-01 05:38] LABS: Calcium 7.7 MG/DL (8.5-10.1); Osmolality,Calculated 296.3 MOS/KG (273-304)
[2017-03-01] MEDS ORDERED: DIGOXIN 0.5 MG/2 ML AMP IV ONE (08:14)
--- NOTE | 2017-03-01 08:24 | Gastrointestinal Progress Note ---
Assessment and Plan (1) Abnormal abdominal CT scan Status: Acute Assessment and plan: The patient does have some abdominal distention with a history of alternating diarrhea and constipation. Is unclear in my mind whether this represents a diverticular stricture versus diverticulitis versus artifact from CT evaluation with dilation above the segments due to constipation and apparent transition point. I think if there was diverticulitis the radiologist would have commented on fat stranding around the colon which does not appear to be present. So linking the CT scan findings and the patient's elevated white blood cell count may not be realistic. I think a simple barium enema would evaluate this area nicely and we can obtain the patient's old colonoscopy report from Dr. Salazar/[facility] for evaluation. The patient will be unlikely to have a colon cancer this close to recent colonoscopy done at [facility] (by report this occurred in August 2016). Further recommendations post evaluation of the previous scope report and barium enema when this patient is well enough to undergo a trip to radiology and rectal contrast. Anticipate this may be in the next day or 2. 02/27/17--We Are still awaiting colonoscopy reports from [facility] at this point ( requested). Patient remains on levophed and is not able to go for the barium enema yet. White blood cell count is dropping currently down from 20K to 12.7 K today. We do not really see a diverticulitis, there may be noninflammatory kinking in the colon or this may be a artifact which we should be able to tell very quickly with a single column barium enema when the patient is able to tolerate this. In the meantime I may give him a small enema to stimulate forward flow with some soapsuds. Continue clear liquid diet as tolerated. If he develops vomiting we can consider using an NG tube for suctioning his stomach. 02/28/17--No further results were obtained upon contacting [facility] concern is patient's last colonoscopy report. The patient had his barium enema done yesterday after he was able to come off of his pressor agents. This demonstrated good flow all the way up to the cecum with no gross evidence of constricting lesion or transition point. The patient probably needs to help get rid of some of the contrast with milk of magnesia but otherwise is doing quite well. His abdomen seems a great deal less distended. Note his white count is improved and no constricting lesion is seen I will sign off the case. He is invited to follow-up with his blade filer at [facility] has needed. 03/01/17--Still having some constipation will start some MiraLAX on a daily basis to help with that is. He can start up on a high-fiber low-fat cardiac diet since he is not obstructed. He should follow-up with his blade filer at [facility]. Will stop seeing at this point. Current Visit: Yes (2) Anemia Status: Chronic Assessment and plan: Hematocrit is dropped from 35.0-->33.6%. I suspect this may be multifactorial due to renal dysfunction, chronic disease, possible gastritis and possibly nutritional. He is having some scant rectal bleeding which may be due to hemorrhoids. Will have to review the previous colonoscopy report, but I doubt there is significant bleeding from the colon such as might be seen with a diverticular bleed or an ischemic colitis. We will continue to follow the hematocrit during his hospital stay. 02/27/17--Observe. The hematocrit is down to 31.6 today. No gross evidence of hematemesis or active bleeding per rectum but then again the patient is not having any stools either 03/01/17--The aspirin has been eliminated for this patient's regimen. Continue observation for stability. No gross evidence of heme/blood/melena per rectum. Current Visit: Yes Qualifiers: Chronic kidney disease stage: stage 3 (moderate) (3) Leukocytosis Status: Acute Assessment and plan: Leukocytosis with unclear etiology. Again while this may be related to the patient's underlying GI abnormalities we need to check the colon to see if there is evidence of colitis and search for other potential sources of infection , pneumonia etc. We will watch for improvement in the patient's white blood cell count over time on antibiotics. I have asked the nursing staff to collect stool cultures and fecal white blood cells in addition to the C. difficile order previously written. 02/27/17--This is improved already--continue antibiotics as we are doing. 02/28/17--Leukocytosis is now resolved. Patient's white blood cell count is 8K. 03/01/17--The patient's leukocytosis is now down to 7.4 and I will stop following at this point. Current Visit: Yes (4) History of gastric ulcer Status: Chronic Assessment and plan: The patient's states that he had a recent hospitalization at [facility] which were returned to get the results of concerning his gastric ulcer. We will continue to watch the patient's hematocrit over time and observe for bright red blood per rectum versus melena indicating potential source. While we could consider doing both EGD and colonoscopy patient's had both of these done at [facility] within the last year by report. I would like to review these records before considering repeating the tests. Nursing staff has been asked to have the patient sign a release of information to this and. 02/27/17--Await old records from [facility] for review however the patient's hematocrit seems relatively stable at this point despite anticoagulation with aspirin and lovenox. 02/28/17--This patient has mild anemia and prior history of gastric ulcer, if hematocrit remained stable could certainly continue the aspirin, and Lovenox. He is on pantoprazole 40 mg twice daily and will continue this for the duration of his hospital stay. We can consider upper endoscopy if patient has gerhard blood loss noted. Please contact me if that should occur, will sign off the case for the present time. 03/01/17--Follow-Up with regular blade filer over [facility]--may consider rescoping here if melena develops while in house. The hematocrit shows a slow drift but then again the patient remains on Lovenox. Current Visit: Yes Gastroenterology - PN: Subj Interval history: Seeing the patient again per Cardiology-- They are stopping the ASA, but continuing the lovenox for stroke prevention. No melena or BRBPR. He is hungry and would like to have his diet advanced to something more solid. Exam (Progress Note) - Constitutional Vitals: Period Temp Pulse Resp BP Sys/Olson Pulse Ox Last 24 Hr 96.4 F-98.6 F 92-143 14-110 74-147/39-73 90-98 General appearance: no acute distress - Head Head exam: Present: normocephalic - Eye Eye exam: Present: EOMI Pupils: Present: LANEY - Respiratory Respiratory exam: Present: clear to auscultation bilaterally - Cardiovascular Cardiovascular exam: Present: regular rate and rhythm - GI/Abdominal GI/Abdominal exam: Present: tenderness (Left greater than right lower quadrant pain on deep palpation), soft. Absent: distended, guarding, rebound - Neurological Exam Neurological exam: Present: alert, altered (Confused and mildly paranoid) - Psychiatric Psychiatric exam: Present: normal affect. Absent: agitated - Skin Skin exam: Present: warm Results - Labs CBC & BMP: 03/01/17 03:46 03/01/17 03:46
--- NOTE | 2017-03-01 08:52 | Cardiology Progress Note ---
Assessment and Plan (1) Sepsis Status: Acute Assessment and plan: February 27, 2017 summary: 1. Atrial fibrillation with RVR (uncertain baseline rhythm) complicated by hypotension/sepsis 2. EF greater than 70% without significant valvular disease 3. Remote smoker with some COPD without active wheezing; give metoprolol 5 g IV 3 and then Toprol p.o. 25 mg twice daily; will hold Levophed and diltiazem ( the latter is likely exacerbating hypotension), make adjustments as needed. 4. Low substernal/epigastric chest discomfort resolved since yesterday, and he is ruled out for VA; this chest pain is very atypical, but I do not suspect ACS. 5. Difficult history given his Alzheimer's "I cannot remember what happened" 6. Acute renal failure is clearly improving with good urine output; nephrology service is following. February 28, 2017: 1. Mr. Murphy is much improved although he is confused (uncertain baseline) he is hemodynamically stable without complaint 2. Atrial fibrillation still has RVR; increase Toprol to 50 mils twice daily with IV metoprolol as needed. 3. Acute renal failure is dramatically improved, and hypotension is long resolved. 4. He can be transferred to the floor from cardiac standpoint 5. Echocardiogram showed EF of at least 70% 6. No return of his atypical chest discomfort 7. Apparent Alzheimer's disease. March 01, 2017: 1. Mr. Murphy is doing very well clinically without complaint but still has atrial fibrillation with RVR in the 120s at times. 2. Increase Toprol to 100 mg twice daily; he is not wheezing, so I think he will tolerate this. 3. His acute renal failure is recovering well, and creatinine is only little above normal about 1.4; add digoxin daily for rate control. 4. Given his hematocrit is still trending down, will discontinue aspirin as he has no known coronary artery disease and has negative troponins per; he has no overt blood loss, and GI service is following. 5. EF 70% 6. Alzheimer's disease Current Visit: Yes (2) Renal failure Status: Chronic Current Visit: Yes Qualifiers: Chronic kidney disease stage: stage 3 (moderate) (3) Atrial fibrillation with rapid ventricular response Status: Acute Current Visit: Yes Cardiology - PN: Subj Interval history: Mr. Murphy has no complaints. He says he is not hungry and is not eating his breakfast yet. He has had no chest pain or shortness of breath. He seems to be fairly relaxed per Exam (Progress Note) - Constitutional Vitals: Period Temp Pulse Resp BP Sys/Olson Pulse Ox Last 24 Hr 96.4 F-98.8 F 92-143 14-110 74-147/39-73 90-98 General appearance: no acute distress, over weight - Head Head exam: Present: normal inspection, normocephalic, atraumatic - Respiratory Respiratory exam: Present: clear to auscultation bilaterally. Absent: stridor, wheezes - Cardiovascular Cardiovascular exam: Present: irregular rhythm, tachycardia - GI/Abdominal GI/Abdominal exam: Present: soft. Absent: tenderness - Extremities Exam Extremities exam: Absent: edema Result/EKG - Labs CBC & BMP: 03/01/17 03:46 03/01/17 03:46 Labs: Laboratory Results - last 24 hr 02/28/17 02/28/17 02/28/17 11:13 15:30 21:00 WBC RBC Hgb Hct MCV MCH MCHC RDW Plt Count MPV Neut % (Auto) Lymph % (Auto) Bradford % (Auto) Eos % (Auto) Baso % (Auto) Neut # (Auto) Lymph # (Auto) Bradford # (Auto) Eos # (Auto) Baso # (Auto) Immature Gran % Nucleated RBC % Immature Gran # Nucleated RBCs # Sodium Potassium Chloride Carbon Dioxide Anion Gap BUN Creatinine GFR Calculation BUN/Creatinine Ratio Glucose POC Glucose 184 H 83 101 Calculated Osmolality Calcium 03/01/17 03/01/17 03/01/17 03:46 03:46 07:54 WBC 7.4 RBC 3.07 L Hgb 9.1 L Hct 27.7 L MCV 90.2 MCH 30 MCHC 32.9 RDW 15.3 Plt Count 276 MPV 11.7 Neut % (Auto) 67.5 Lymph % (Auto) 17.4 L Bradford % (Auto) 9.8 Eos % (Auto) 4.1 Baso % (Auto) 0.8 Neut # (Auto) 5.0 Lymph # (Auto) 1.3 L Bradford # (Auto) 0.7 Eos # (Auto) 0.3 Baso # (Auto) 0.1 Immature Gran % 0.4 Nucleated RBC % 0.0 Immature Gran # 0.03 Nucleated RBCs # 0.00 Sodium 148 H Potassium 4.0 Chloride 112 H Carbon Dioxide 27 Anion Gap 13.0 BUN 22 H D Creatinine 1.40 H GFR Calculation 70 BUN/Creatinine Ratio 15.00 Glucose 97 POC Glucose 145 H Calculated Osmolality 296.3 Calcium 7.7 L
--- NOTE | 2017-03-01 08:58 | Nephrology Progress Note ---
Nephrology - PN: Subj Interval history: Patient is resting appears much more comfortable today. Renal function is stable. Creatinine is noted to be 1.4. Hemodynamically stable. Exam (PN)-Nephrology - Vital Signs Vital signs: Period Temp Pulse Resp BP Sys/Olson Pulse Ox Last 24 Hr 96.4 F-98.8 F 92-143 14-110 74-147/39-73 90-98 - General Appearance General appearance: well-developed, well-nourished EENT: ATNC Neck: supple Respiratory: clear Cardiology: regular rate, regular rhythm Gastrointestinal: normoactive bowel sounds, no tenderness Integumentary: no rash Musculoskeletal: no clubbing - Lab 03/01/17 03:46 03/01/17 03:46 Most recent lab results Calcium 7.7 MG/DL (8.5-10.1) L 03/01/17 03:46 Magnesium 1.6 MG/DL (1.8-2.4) L 02/27/17 02:55 Assessment and Plan (1) Atrial fibrillation Status: Chronic Current Visit: Yes (2) Renal failure Status: Resolved Assessment and plan: Appears to be acute on chronic renal failure for this patient. Renal function is improving. Current Visit: Yes Qualifiers: Chronic kidney disease stage: stage 3 (moderate) (3) Anemia Status: Chronic Current Visit: Yes Qualifiers: Chronic kidney disease stage: stage 1
[2017-03-01] MEDS: DULoxetine 30 MG CAPSULE PO SCH (09:08)
[2017-03-01] MEDS: CALCIUM CARBONATE CHEW 500 MG TABLET PO SCH ×3 (09:09→21:11)
[2017-03-01] MEDS: POLYETHYLENE GLYCOL POWDER 17 GM PACK PO SCH ×2 (09:14→21:09)
[2017-03-01] MEDS: METOPROLOL SUCCINATE XL 100 MG TABLET PO SCH ×2 (09:14→21:11)
[2017-03-01] MEDS: INSULIN LISPRO 100 UNIT/ML SUBCUT SCH ×4 (09:15→20:31)
[2017-03-01] MEDS: MORPHINE ER 30 MG TABLET PO SCH ×3 (10:13→21:11)
[2017-03-01] MEDS: SODIUM CHLORIDE 0.45% 1,000 ML IV SCH (10:25)
--- NOTE | 2017-03-01 10:41 | Hospitalist Progress Note ---
Assessment and Plan - Time spent with patient Time spent with patient: Less than 30 minutes (1) Psychiatric disorder Status: Acute Assessment and plan: Mr. Murphy is a 66-year-old white male with history of chronic pain, diabetes, and hypertension admitted by the hospitalist service on 02/25/2017 with sepsis, renal failure, and A. fib with RVR. Patient is being followed by pain management, nephrology, cardiology, and GI. Dr. Lobato to see and examine patient and further recommendations to follow. Sepsis--this is resolved. IV antibiotics have been stopped and oral Flagyl and Levaquin have been started to cover the abdominal infection. His IV fluids have been stopped since patient is eating and drinking okay. Increased his free water 228 ounces per day. A. fib with RVR--this has improved but he continues to jump up to rates in the 120s. Cardiology has increased his dose of Toprol again and his anticoagulation is being held. He is on Lovenox subcu 30 mg. Patient's hematocrit is slowly trending down so his aspirin was stopped. There is no overt signs of bleeding. Dr. Mack added digoxin daily for rate control. Renal failure--this is resolved quickly with IV fluids. His creatinine is down to 1.4 today. Nephrology is following. Diabetes--patient is on sliding scale insulin. His hemoglobin A1c was never drawn so ordered another one. This is pending Chronic pain syndrome--patient is on ER morphine and Percocet at home. This is been continued and seems to be under control Psych--Seroquel was started yesterday for patient's sobbing fits in chronic dementia. He seems much better this morning. He is calm and lucid. Geodon was stopped. [facility] has been consulted History of gastric ulcer--Dr. Saravia has been following. He normally sees a human resources advisor over at [facility]. His hematocrit is showing a slow drift but he does remain on Lovenox. His leukocytosis is improved and aspirin has been eliminated from his regimen. Dr. Saravia from GI is following. He will need to follow-up with his human resources advisor at [facility] upon DC. Current Visit: Yes (2) Sepsis Status: Acute Current Visit: Yes (3) Renal failure Status: Resolved Current Visit: Yes Qualifiers: Chronic kidney disease stage: stage 3 (moderate) (4) Atrial fibrillation with rapid ventricular response Status: Acute Current Visit: Yes (5) Diabetes mellitus Status: Chronic Current Visit: Yes Qualifiers: Diabetes mellitus type: type 2 (6) Chronic pain syndrome Status: Chronic Current Visit: Yes Hospitalist: Subjective Interval history: Patient is lying comfortably in bed. He feels much better today than he did yesterday. When asked about the sobbing episode yesterday he states that he "does that sometimes." Exam - Constitutional Vitals: Period Temp Pulse Resp BP Sys/Olson Pulse Ox Last 24 Hr 96.4 F-98.8 F 92-143 14-110 74-147/39-73 90-98 Exam: 66-year-old white male, no acute distress, alert and oriented Chest clear CV regular rate and rhythm Abdomen obese and nontender Extremities with trace edema Results - Labs CBC & BMP: 03/01/17 03:46 03/01/17 03:46 Lab Results: I have reviewed the past 24 hour labs
[2017-03-01] MEDS: METOPROLOL TARTRATE 5 MG/5 ML VIAL IV PRN (11:48)
[2017-03-01] MEDS: METOPROLOL TARTRATE 5 MG/5 ML VIAL IV SCH ×3 (12:47→13:59)
[2017-03-01] MEDS: DILTIAZEM INJ 100 MG in SODIUM CHLORIDE 0.9% 100 ML IV SCH (14:16)
[2017-03-01] MEDS: DIGOXIN 0.125 MG TABLET PO SCH (15:01)
[2017-03-01] MEDS: AMOXICILLIN/CLAV 500 MG TABLET PO SCH (15:02)
[2017-03-01] MEDS: ENOXAPARIN 40 MG/0.4 ML SYRINGE SUBCUT SCH (21:11)
[2017-03-01] MEDS: PANTOPRAZOLE 40 MG TABLET PO SCH (21:11)
[2017-03-01] MEDS: BIMATOPROST 0.01% OPH SOLN 2.5 ML BOTTLE BOTH EYES SCH (23:18)
[2017-03-02] MEDS: AMOXICILLIN/CLAV 500 MG TABLET PO SCH ×3 (00:35→23:56)
[2017-03-02 04:29] LABS: Basophils # 0.1 10*3/uL (0.0-0.2); Basophils % 0.9 % (0.0-0.8); Eosinophils # 0.3 10*3/uL (0.0-0.87); Eosinophils % 3.7 % (0.00-10.9); Hematocrit 28.4 VOL% (42.0-52.0); Hemoglobin 9.3 GM/DL (14.0-18.0); Immature Granulocytes % 0.3 %; Immature Granulocytes Absolute 0.02 #; Lymphocytes # 1.9 10*3/uL (1.4-4.0); Lymphocytes % 25.5 % (21.2-54.2); Mean Corpuscular HGB Conc 32.7 GM/DL (32-36); Mean Corpuscular Hemoglobin 29 PG (27-34); Mean Corpuscular Volume 89.6 FL (87-102); Mean Platelet Volume 11.2 FL (9.6-12.0); Monocytes # 0.9 10*3/uL (0.11-0.8); Monocytes % 12.1 % (1.7-12.7); Neutrophils # 4.4 10*3/uL (1.4-7.4); Neutrophils % 57.5 % (38.7-73.9); Platelet Count 300 T/CUMM (130-400); Red Blood Count 3.17 MC/CUMM (3.8-5.5); Red Cell Distribution Width 14.6 % (9.3-17.3); White Blood Count 7.6 T/CUMM (4-12)
[2017-03-02 05:04] LABS: Calcium 7.6 MG/DL (8.5-10.1); Magnesium 1.2 MG/DL (1.8-2.4); Osmolality,Calculated 291.6 MOS/KG (273-304); Potassium 3.7 MMOL/L (3.5-5.1)
[2017-03-02] MEDS: PANTOPRAZOLE 40 MG TABLET PO SCH ×3 (06:56→18:10)
[2017-03-02] MEDS: QUEtiapine 25 MG TABLET PO SCH ×2 (08:50→21:16)
[2017-03-02] MEDS: CALCIUM CARBONATE CHEW 500 MG TABLET PO SCH ×3 (08:50→21:15)
[2017-03-02] MEDS: MORPHINE ER 30 MG TABLET PO SCH ×2 (08:50→21:15)
[2017-03-02] MEDS: METOPROLOL SUCCINATE XL 100 MG TABLET PO SCH ×2 (08:52→21:15)
[2017-03-02] MEDS: POLYETHYLENE GLYCOL POWDER 17 GM PACK PO SCH ×2 (08:52→21:16)
[2017-03-02] MEDS: DULoxetine 30 MG CAPSULE PO SCH (08:52)
[2017-03-02] MEDS: INSULIN LISPRO 100 UNIT/ML SUBCUT SCH ×4 (08:52→21:14)
[2017-03-02] MEDS: DILTIAZEM INJ 100 MG in SODIUM CHLORIDE 0.9% 100 ML IV SCH ×3 (08:53→23:58)
[2017-03-02] MEDS: MAGNESIUM SULF RIDER 2 GM in PREMIX 1 EACH IV PRN ×2 (08:54→11:58)
[2017-03-02] MEDS: oxyCODONE/ACETAMINOPHEN 5-325 MG TABLET PO PRN ×2 (08:57→17:55)
--- NOTE | 2017-03-02 10:22 | Cardiology Progress Note ---
<Cari Plasencia E - Last Filed: 03/02/17 09:52> Assessment and Plan - Time spent with patient Time spent with patient: Greater than 30 minutes (1) Chest pain Status: Resolved Assessment and plan: SEE PLAN OF CARE LISTED BELOW Current Visit: Yes (2) Sepsis Status: Resolved Assessment and plan: SEE PLAN OF CARE LISTED BELOW Current Visit: Yes (3) Renal failure Status: Resolved Assessment and plan: SEE PLAN OF CARE LISTED BELOW Current Visit: Yes Qualifiers: Chronic kidney disease stage: stage 3 (moderate) (4) Atrial fibrillation with rapid ventricular response Status: Acute Assessment and plan: SEE PLAN OF CARE LISTED BELOW Current Visit: Yes (5) Diabetes mellitus Status: Chronic Current Visit: Yes Qualifiers: Diabetes mellitus type: type 2 (6) Chronic pain syndrome Status: Chronic Assessment and plan: SEE PLAN OF CARE LISTED BELOW Current Visit: Yes (7) Abnormal abdominal CT scan Status: Chronic Assessment and plan: SEE PLAN OF CARE LISTED BELOW Current Visit: Yes (8) Anemia Status: Chronic Assessment and plan: SEE PLAN OF CARE LISTED BELOW Current Visit: Yes Qualifiers: Chronic kidney disease stage: stage 1 (9) Leukocytosis Status: Acute Assessment and plan: SEE PLAN OF CARE LISTED BELOW Current Visit: Yes (10) History of gastric ulcer Status: Chronic Assessment and plan: SEE PLAN OF CARE LISTED BELOW Current Visit: Yes (11) Hypertension Status: Acute Current Visit: Yes Cardiology - PN: Subj Interval history: OPERATING ROOM SURGICAL TECHNOLOGIST: LATRELL: DR. PATRIC CASTORENA: DR. WATKINS PCP: DR. MIKO SEVILLA SUMMARY: Mr. Murphy, 66WM, has been previously followed by Dr. Watkins, regulatory coordinator, at [facility]. Risk factors include: History of hypertension, diabetes , CVA, obesity, sedentary lifestyle, remote tobaccoism. Admitted February 25, 2017 with sepsis thought to be related to a GI source. He was found to be in atrial fibrillation with rapid ventricular response requiring IV diltiazem. Heart rate has been difficult to control during hospitalization. He has a prior history of anemia and for this reason, formal anticoagulation has been avoided. In fact, because his anemia had worsened yesterday, aspirin was discontinued Thursday. Creatinine on admission 4.9, now normalized. History of Alzheimer's dementia and has difficulty remembering much of his health history but no prior history of known coronary artery disease is noted. Patient did have complaints of chest pain on Thursday which prompted a "heart alert". However, as he was being examined for these complaints, patient was repositioned in bed to a 90 angle, he belched numerous times in his chest pain resolved and has not returned. Cardiac biomarkers have been negative, EKG has not revealed an acute event. Echocardiogram reveals EF 70%, no significant valvular abnormality, PAP of 28 mmHg. MARCH 02, 2017: Last evening, IV diltiazem was reinitiated for heart rate around 130 bpm. Currently, diltiazem 10 mg/h infusing. Heart rates are better controlled. around low 100s. He is also on beta blockade and oral digoxin. Today, he is being transitioned to oral Diltiazem. He is agreeable to go to [facility] tomorrow and, if we can get get him off IV Diltiazem today, he will be eligible for transfer. VITALY VASC SCORE 3. ASA was discontinued over weekend for mildly worsened anemia. May benefit from restarting ASA. Will further discuss with Dr. Lai and await additional recommendations. ASSESSMENT/PLAN: 1. CHEST PAIN - resolved with belching. Continue Simethicone and PPI. CIEs negative. 2. ATRIAL FIBRILLATION WITH RVR - now on IV Cardizem again. Transitioning to oral CCB today. Not a candidate for anti-coagulation due to anemia. VITALY VASC SCORE 3. Consider restarting ASA. 3. SEPSIS - resolved. Continue current plan of care 4. HYPERTENSION - adequately controlled on Betablockade. Avoiding KERRY/ARB for fear of worsening renal insufficiency, also favor rate controlling agents at this time. 5. DIABETES - continue current plan of care. FLP in the morning. 6. ACUTE RENAL INSUFFICIENCY - resolved. Creatinine normalized. Initially STAGE IV. 7. HISTORY OF GASTRIC ULCER DISEASE - Continue PPI 8. ABNORMAL ABDOMINAL CT - see report. 9. ANEMIA - seems to be stable over the weekend. 10. LEUKOCYTOSIS - resolved. Exam (Progress Note) - Constitutional Vitals: Period Temp Pulse Resp BP Sys/Olson Pulse Ox Last 24 Hr 97 F-99.1 F 80-140 16-18 107-141/54-82 90-96 Exam: General: [Appears critically ill. Pleasant and cooperative. ] HEENT: [PERRL, normocephalic, atraumatic. Mucous membranes moist. No jaundice noted. Conjunctiva moist and clear, sclerae anicteric] Neck: No obvious JVD noted. No thyromegaly or lymphadenopathy noted. No carotid bruit appreciated Cardiac: [Irregularly irregular rhythm, controlled rate at present. No obvious murmur, rub or gallop noted Lungs: [Clear to auscultation without accessory muscle use to assist the respiratory pattern.] Oxygen in use via nasal cannula intermittently. Abdomen: Soft, bowel sounds normoactive. Nontender and nondistended. No abdominal bruit or thrill noted. No masses noted. Musculoskeletal: No fluid collection. Decreased range of motion is noted. Extremities: No clubbing, cyanosis noted. [ Trace BLE edema. ] Upper extremity pulses 2+. Lower extremity pulses 1+. Great toe right foot amputated. Capillary refill less than 3 seconds. Skin: No unusual lesions or rashes. No skin breakdown appreciated. Neuro: Awake, alert and oriented 3. Moves all extremities well without hemiparesis or paralysis. No essential tremor is appreciated. Result/EKG - Labs CBC & BMP: 03/02/17 03:51 03/02/17 03:51 Lab Results: I have reviewed the past 24 hour labs Labs: Laboratory Results - last 24 hr 03/01/17 03/01/17 03/01/17 11:33 11:45 16:10 WBC RBC Hgb Hct MCV MCH MCHC RDW Plt Count MPV Neut % (Auto) Lymph % (Auto) Dodge % (Auto) Eos % (Auto) Baso % (Auto) Neut # (Auto) Lymph # (Auto) Dodge # (Auto) Eos # (Auto) Baso # (Auto) Immature Gran % Nucleated RBC % Immature Gran # Nucleated RBCs # Sodium Potassium Chloride Carbon Dioxide Anion Gap BUN Creatinine GFR Calculation BUN/Creatinine Ratio Glucose POC Glucose 205 H 225 H Hemoglobin A1c 6.4 H Calculated Osmolality Calcium Magnesium 03/01/17 03/02/17 03/02/17 20:29 03:51 03:51 WBC 7.6 RBC 3.17 L Hgb 9.3 L Hct 28.4 L MCV 89.6 MCH 29 MCHC 32.7 RDW 14.6 Plt Count 300 MPV 11.2 Neut % (Auto) 57.5 Lymph % (Auto) 25.5 Dodge % (Auto) 12.1 Eos % (Auto) 3.7 Baso % (Auto) 0.9 H Neut # (Auto) 4.4 Lymph # (Auto) 1.9 Dodge # (Auto) 0.9 H Eos # (Auto) 0.3 Baso # (Auto) 0.1 Immature Gran % 0.3 Nucleated RBC % 0.0 Immature Gran # 0.02 Nucleated RBCs # 0.00 Sodium 146 H Potassium 3.7 Chloride 108 H Carbon Dioxide 29 Anion Gap 12.7 BUN 16 Creatinine 1.10 GFR Calculation 94 BUN/Creatinine Ratio 14.00 Glucose 119 H POC Glucose 109 H Hemoglobin A1c Calculated Osmolality 291.6 Calcium 7.6 L Magnesium 1.2 L 03/02/17 07:37 WBC RBC Hgb Hct MCV MCH MCHC RDW Plt Count MPV Neut % (Auto) Lymph % (Auto) Dodge % (Auto) Eos % (Auto) Baso % (Auto) Neut # (Auto) Lymph # (Auto) Dodge # (Auto) Eos # (Auto) Baso # (Auto) Immature Gran % Nucleated RBC % Immature Gran # Nucleated RBCs # Sodium Potassium Chloride Carbon Dioxide Anion Gap BUN Creatinine GFR Calculation BUN/Creatinine Ratio Glucose POC Glucose 160 H Hemoglobin A1c Calculated Osmolality Calcium Magnesium - Diagnostic Findings Procedure: Chest x-ray: report reviewed by pr - EKG EKG results: interpreted by pr EKG shows: atrial fibrillation <Hailee Lai - Last Filed: 03/02/17 14:59> Assessment and Plan (1) Atrial fibrillation with rapid ventricular response Status: Acute Current Visit: Yes Cardiology - PN: Subj Interval history: This is a 66-year-old gentleman with some sort of condition diagnosed as dementia whose problems previously followed by Dr. Dillon Baxter and Dr. Velez at [facility]. He has A. fib with RVR but has also significant anemia he cannot tell us any meaningful history. We will continue increasing his AV cammie blocking agents. I reviewed the records from [facility] his admission back in December. Is very difficult situation seen and discussed with Ms. Plasencia. His primary care physician is Dr. Valentino Sevilla. Exam (Progress Note) - Constitutional Vitals: Period Temp Pulse Resp BP Sys/Olson Pulse Ox Last 24 Hr 97 F-99.1 F 80-139 16-18 107-141/54-82 90-97 Exam: The patient is disheveled. He is pulled out several IVs and there is significant amount of blood in the room. He states that he cannot remember anything. His cardiac exam and lung exam as above. I agree. Result/EKG - Labs CBC & BMP: 03/02/17 03:51 03/02/17 03:51 Labs: Laboratory Results - last 24 hr 03/01/17 03/01/17 03/02/17 16:10 20:29 03:49 WBC RBC Hgb Hct MCV MCH MCHC RDW Plt Count MPV Neut % (Auto) Lymph % (Auto) Dodge % (Auto) Eos % (Auto) Baso % (Auto) Neut # (Auto) Lymph # (Auto) Dodge # (Auto) Eos # (Auto) Baso # (Auto) Immature Gran % Nucleated RBC % Immature Gran # Nucleated RBCs # Sodium Potassium Chloride Carbon Dioxide Anion Gap BUN Creatinine GFR Calculation BUN/Creatinine Ratio Glucose POC Glucose 225 H 109 H Calculated Osmolality Calcium Magnesium Free T4 1.09 TSH 3rd Generation 2.880 03/02/17 03/02/17 03/02/17 03:51 03:51 07:37 WBC 7.6 RBC 3.17 L Hgb 9.3 L Hct 28.4 L MCV 89.6 MCH 29 MCHC 32.7 RDW 14.6 Plt Count 300 MPV 11.2 Neut % (Auto) 57.5 Lymph % (Auto) 25.5 Dodge % (Auto) 12.1 Eos % (Auto) 3.7 Baso % (Auto) 0.9 H Neut # (Auto) 4.4 Lymph # (Auto) 1.9 Dodge # (Auto) 0.9 H Eos # (Auto) 0.3 Baso # (Auto) 0.1 Immature Gran % 0.3 Nucleated RBC % 0.0 Immature Gran # 0.02 Nucleated RBCs # 0.00 Sodium 146 H Potassium 3.7 Chloride 108 H Carbon Dioxide 29 Anion Gap 12.7 BUN 16 Creatinine 1.10 GFR Calculation 94 BUN/Creatinine Ratio 14.00 Glucose 119 H POC Glucose 160 H Calculated Osmolality 291.6 Calcium 7.6 L Magnesium 1.2 L Free T4 TSH 3rd Generation 03/02/17 11:33 WBC RBC Hgb Hct MCV MCH MCHC RDW Plt Count MPV Neut % (Auto) Lymph % (Auto) Dodge % (Auto) Eos % (Auto) Baso % (Auto) Neut # (Auto) Lymph # (Auto) Dodge # (Auto) Eos # (Auto) Baso # (Auto) Immature Gran % Nucleated RBC % Immature Gran # Nucleated RBCs # Sodium Potassium Chloride Carbon Dioxide Anion Gap BUN Creatinine GFR Calculation BUN/Creatinine Ratio Glucose POC Glucose 168 H Calculated Osmolality Calcium Magnesium Free T4 TSH 3rd Generation
[2017-03-02] MEDS: DILTIAZEM CD 120 MG CAPSULE PO SCH ×2 (11:54→21:15)
--- NOTE | 2017-03-02 12:02 | Hospitalist Progress Note ---
Assessment and Plan (1) Psychiatric disorder Status: Acute Assessment and plan: depression and dementia, Geripsych consulted, cont seroquel and cymbalta. Current Visit: Yes (2) Renal failure Status: Resolved Assessment and plan: chronic stage II and stable Current Visit: Yes Qualifiers: Chronic kidney disease stage: stage 3 (moderate) (3) Atrial fibrillation with rapid ventricular response Status: Acute Assessment and plan: cont dig and metoprolol succinate 100 mg po bid and started dilt 120 mg po bid, wean off dilt drip Current Visit: Yes (4) Diabetes mellitus Status: Chronic Assessment and plan: Hemoglobin A1c 6.4, glyburide 2.5 mg daily Current Visit: Yes Qualifiers: Diabetes mellitus type: type 2 (5) Chronic pain syndrome Status: Chronic Assessment and plan: morphine and percocet Current Visit: Yes (6) Cellulitis Status: Acute Assessment and plan: IV access infection worried about underlying abscess. Consult Dr. Nolan, cont clindamycin Current Visit: Yes Hospitalist: Subjective Interval history: Patient having trouble with paranoia and depression. He is willing to go to [facility]. Patient currently on a Dilt drip to wean him off. Ray from [facility] has been to see him. Exam - Constitutional Vitals: Period Temp Pulse Resp BP Sys/Olson Pulse Ox Last 24 Hr 97 F-99.1 F 80-139 16-18 107-141/54-82 90-97 Exam: Heart Rate-[tachy] Lungs-[CTAB] GI-[+bs soft, NT] Ext-[no edema] Neuro [Motor 5/5], [alert and oriented times 2] psych [depressed mood and affect] General [no acute distress] Results - Labs CBC & BMP: 03/02/17 03:51 03/02/17 03:51 Lab Results: I have reviewed the past 24 hour labs - Diagnostic Findings Procedure: Chest x-ray: report reviewed by me (Enlarged heart)
--- NOTE | 2017-03-02 12:38 | General Surgery Consult Note ---
Assessment and Plan - Time spent with patient Time spent discussing smoking cessation with patient: 3 to 10 minutes (1) Thrombophlebitis arm Status: Acute Assessment and plan: Left arm appears to be mostly superficial thrombophlebitis. Not able to express any purulence. Would suggest warm compress and NSAIDs for now. Patient also did just eat lunch. Demarcated the area of cellulitis. Continue clindamycin. If area does not get better or if patient clinically gets worse might require an incision and drainage of the area. Current Visit: Yes History of Present Illness Chief complaint: Left arm IV site infiltrate History of present illness: Mr. Murphy is a 66 year old male who came in a few days ago in [place] secondary to possible gastroenteritis. Patient was initially dehydrated and required IV hydration. He had an left AC IV site which today was noted to be erythematous and very mildly tender. Denied any recent fever or chills. No leukocytosis. Home Medications Medication Instructions Recorded Confirmed Type Zolpidem Tartrate [Ambien] 10 mg PO BEDTIME 04/23/15 02/25/17 History Chlorthalidone 12.5 mg PO DAILY 02/25/17 02/25/17 History Metoprolol Tartrate 12.5 mg PO BID 02/25/17 02/25/17 History Pantoprazole Tab [Protonix Tab] 40 mg PO BID 02/25/17 02/25/17 History Pregabalin [Lyrica] 75 mg PO TID PRN 02/25/17 02/25/17 History Tizanidine HCl 4 mg PO TID 02/25/17 02/25/17 History dilTIAZem HCl [Diltiazem ER (24 120 mg PO BEDTIME 02/25/17 02/25/17 History hr)] diphenhydrAMINE CAP [Benadryl Cap] 25 mg PO DAILY PRN 02/25/17 02/25/17 History Allergies Allergy/AdvReac Type Severity Reaction Status Date / Time No Known Allergies Allergy Verified 02/25/17 17:07 Medical,Surgical,& Family Hx - Medical History Cardio: History of: CHF, CAD, Hypertension Neurology: History of: Cerebrovascular Accident (12 yrs ago), Dementia Endocrine: History of: Diabetes Mellitus (IDDM), Dyslipidemia Respiratory: History of: COPD, Obstructive Sleep Apnea (refuses cpap) Renal: History of: Renal Failure Gastrointestinal: History of: GI Problems (bleeding ulcers 6 mo ago [facility]) Musculoskeletal: History of: Back/Neck Problems (chronic pain followed by Dr. Pena) - Surgical History Cardiac Surgeries: Patient Denies: Cardiac Catheterization Reproductive Surgeries: Patient denies;: Genitourinary Surgery Orthopedic Surgeries: Surgical HX of;: Orthopedic Surgery (amputation right great toe) - Family History Family History: Reports;: Family Cancer (mom-throat), Family Heart Disease (aunt ) - Social History Smoking Status: Former smoker Frequency of Alcohol Use: None Type of Drug Use: None - Constitutional Constitutional: Present: lethargy - EENT Nose, mouth and throat: Present: dysphagia - Cardiovascular Cardiovascular: Present: dyspnea on exertion - Gastrointestinal Gastrointestinal: Present: bloating - Musculoskeletal Musculoskeletal: Present: muscle weakness Exam - Constitutional Vitals: Period Temp Pulse Resp BP Sys/Olson Pulse Ox Last 24 Hr 97 F-99.1 F 80-139 16-18 107-141/54-82 90-97 General appearance: over weight - Head Head exam: Present: normal inspection - ENT ENT exam: Present: normal exam - Neck Neck exam: Present: normal inspection - Cardiovascular Cardiovascular exam: Present: RRR - GI/Abdominal GI/Abdominal exam: Present: normal bowel sounds, hyperactive bowel sounds, soft. Absent: distended, mass - Neurological Exam Neurological exam: Present: alert, oriented X3 - Skin Skin exam: Present: other (Left antecubital area had mildly indurated approximately 6 x 3 cm area. No fluctuant mass appreciated.) Results - Labs CBC & BMP: 03/02/17 03:51 03/02/17 03:51
[2017-03-02] MEDS: DIGOXIN 0.125 MG TABLET PO SCH (12:41)
--- NOTE | 2017-03-02 14:05 | Nephrology Progress Note ---
Nephrology - PN: Subj Interval history: Mr. Murphy is seen in follow-up of his acute renal failure which is now resolved. His creatinine today is 1.1. He has no significant edema in his chest is clear. We will sign off please reconsult if needed Exam (PN)-Nephrology - Vital Signs Vital signs: Period Temp Pulse Resp BP Sys/Olson Pulse Ox Last 24 Hr 97 F-99.1 F 80-139 16-18 107-141/54-82 90-97 - Lab 03/02/17 03:51 03/02/17 03:51 Most recent lab results Calcium 7.6 MG/DL (8.5-10.1) L 03/02/17 03:51 Magnesium 1.2 MG/DL (1.8-2.4) L 03/02/17 03:51 Assessment and Plan (1) Renal failure Status: Resolved Assessment and plan: Continue fluid and bicarb Current Visit: Yes Qualifiers: Chronic kidney disease stage: stage 3 (moderate) (2) Diabetes mellitus Status: Chronic Current Visit: Yes Qualifiers: Diabetes mellitus type: type 2 (3) Atrial fibrillation with rapid ventricular response Status: Acute Current Visit: Yes
[2017-03-02 14:18] LABS: Free T4 (Free Thyroxine) 1.09 NG/DL (0.76-1.46); Thyroid Stimulating Hormone 2.88 uIU/ml (0.358-3.74)
[2017-03-02] MEDS: CLINDAMYCIN INJ 600 MG in PREMIX 1 EACH IV SCH ×2 (14:40→21:17)
[2017-03-02] MEDS: ENOXAPARIN 40 MG/0.4 ML SYRINGE SUBCUT SCH (21:14)
[2017-03-02] MEDS: BIMATOPROST 0.01% OPH SOLN 2.5 ML BOTTLE BOTH EYES SCH (21:19)
[2017-03-03] MEDS ORDERED: ZALEPLON 5 MG CAPSULE PO PRN (00:35)
[2017-03-03] MEDS: CLINDAMYCIN INJ 600 MG in PREMIX 1 EACH IV SCH ×2 (04:24→13:31)
[2017-03-03 05:18] LABS: Basophils # 0.1 10*3/uL (0.0-0.2); Basophils % 0.6 % (0.0-0.8); Eosinophils # 0.4 10*3/uL (0.0-0.87); Eosinophils % 5.4 % (0.00-10.9); Hematocrit 26.9 VOL% (42.0-52.0); Hemoglobin 8.9 GM/DL (14.0-18.0); Immature Granulocytes % 0.2 %; Immature Granulocytes Absolute 0.02 #; Lymphocytes # 2.7 10*3/uL (1.4-4.0); Lymphocytes % 32.7 % (21.2-54.2); Mean Corpuscular HGB Conc 33.1 GM/DL (32-36); Mean Corpuscular Hemoglobin 30 PG (27-34); Mean Corpuscular Volume 89.4 FL (87-102); Mean Platelet Volume 11.3 FL (9.6-12.0); Monocytes # 0.8 10*3/uL (0.11-0.8); Monocytes % 10.4 % (1.7-12.7); Neutrophils # 4.1 10*3/uL (1.4-7.4); Neutrophils % 50.7 % (38.7-73.9); Platelet Count 298 T/CUMM (130-400); Red Blood Count 3.01 MC/CUMM (3.8-5.5); Red Cell Distribution Width 14.7 % (9.3-17.3); White Blood Count 8.1 T/CUMM (4-12)
[2017-03-03 05:53] LABS: Calcium 7.6 MG/DL (8.5-10.1); Magnesium 1.8 MG/DL (1.8-2.4); Potassium 3.8 MMOL/L (3.5-5.1); Risk Ratio 2.71; VLDL CHOLESTEROL 20.4 MG/DL
[2017-03-03] MEDS: PANTOPRAZOLE 40 MG TABLET PO SCH (06:25)
[2017-03-03] MEDS: INSULIN LISPRO 100 UNIT/ML SUBCUT SCH ×2 (07:54→12:10)
[2017-03-03] MEDS: METOPROLOL SUCCINATE XL 100 MG TABLET PO SCH (08:39)
[2017-03-03] MEDS: MORPHINE ER 30 MG TABLET PO SCH (08:39)
[2017-03-03] MEDS: CALCIUM CARBONATE CHEW 500 MG TABLET PO SCH (08:39)
[2017-03-03] MEDS: DILTIAZEM CD 120 MG CAPSULE PO SCH (08:39)
[2017-03-03] MEDS: DULoxetine 30 MG CAPSULE PO SCH (08:39)
[2017-03-03] MEDS: POLYETHYLENE GLYCOL POWDER 17 GM PACK PO SCH (08:40)
[2017-03-03] MEDS: QUEtiapine 25 MG TABLET PO SCH (08:40)
[2017-03-03] MEDS: oxyCODONE/ACETAMINOPHEN 5-325 MG TABLET PO PRN (08:40)
--- NOTE | 2017-03-03 10:38 | Discharge Summary ---
<Marvin Rubio - Last Filed: 03/03/17 10:53> Hospital Course - Hospital Course Hospital Course: Mr. Murphy is a 66-year-old white male with a past medical history of hypertension, diabetes mellitus, chronic pain syndrome who was admitted as a transfer from [facility] on 02/25/2017 for further evaluation of weakness and syncope. The patient was admitted to the ICU through the hospital medicine service with possible sepsis, renal failure, atrial fibrillation with RVR, hypertension and diabetes mellitus. He was started on broad-spectrum IV antibiotics with aggressive IV fluid hydration. During the first night, the patient became anuric and mildly hyperkalemic despite aggressive fluids. Nephrology was consulted but advised against dialysis at that time. We continued IV fluids. He became hypotensive after this and was started on Levophed at 2 mics and his IV fluids were increased to 120 mL/hr. The patient began to have decent urine output and his creatinine fell from 7.0 to 6.4 by . Echocardiogram revealed an estimated EF of 70% with no segmental wall motion abnormality. On 02/26/17 the patient reportedly had a chest pain crisis which had resolved quickly by the time of the doctor's exam. Patient was found to be in metabolic acidosis. Nephrology and gastroenterology were consulted. He was given an amp on bicarb, continued on sodium acetate, and an attempt to wean off levophed with a manual BP cuff was initiated (attempt was unsuccessful and the patient required a central line placement). GI ordered a barium swallow for the patient' s abnormal abdominal CT scan. No obstructing lesion was identified in the upper descending colon. Minimal diverticulosis was noted. Creatinine continued to fall, down to 4 on 02/27/17. Patient began to become agitated, tearful and crying. He was given Geodon and became more cooperative. By 02/28/17, patient's creatinine had fallen to 1.9. With the improved creatinine and blood pressure, the patient was able to successfully be weaned off of levophed. He was later transferred to the telemetry unit for further observation and treatment. By 03/01/17, the patient was improving and doing very well. Cardiology remained on the case to treat his atrial fibrillation with RVR. Toprol XL was increased to 100 mg BID and daily digoxin and diltiazem CD 120 mg po bid was added for rate control. Antibiotics were changed to oral augmentin a superficial thrombophlebitis that developed in his left arm. General surgery was consulted and suggested warm compress and NSAIDs. Patient will be discharged on augmentin. He will be discharged the [facility] for treatment of his depression and paranoia. Specialty Discharge - Follow Up or Referrals Follow up with: Yovani Mack MD [Physician] - 04/14/17 9:00 am Discharge Plan - Discharge Data Disposition: Disch/Xfer to Psych Hos - Discharge Medications New Amoxicillin/Clav Tab [Augmentin Tab] 500 mg PO BID #20 tablet Digoxin Tab [Lanoxin Tab] 0.125 mg PO DAILY@1300 #0 tablet Metoprolol Succinate Xl [Toprol Xl] 100 mg PO BID tablet oxyCODONE/ACETAMINOPHEN 5-325 [Percocet 5-325] 1 tablet PO Q6H PRN #40 tablet PRN Reason: Pain Moderate (4-7) Pantoprazole Tab [Protonix Tab] 40 mg PO BID@0700,1900 tablet QUEtiapine [SEROquel] 50 mg PO BID tablet Zaleplon [Sonata] 10 mg PO BEDTIME PRN #30 capsule PRN Reason: Sleep Morphine ER Tab [Ms Contin] 60 mg PO BID #60 tablet Polyethylene Glycol Powder [Miralax] 17 gm PO BID Continue Pantoprazole Tab [Protonix Tab] 40 mg PO BID Pregabalin [Lyrica] 75 mg PO TID PRN #90 tablet PRN Reason: Pain Changed dilTIAZem HCl [Diltiazem ER (24 hr)] 120 mg PO BID #0 Discontinued Zolpidem Tartrate [Ambien] 10 mg PO BEDTIME Chlorthalidone 12.5 mg PO DAILY diphenhydrAMINE CAP [Benadryl Cap] 25 mg PO DAILY PRN PRN Reason: Sleep Tizanidine HCl 4 mg PO TID Metoprolol Tartrate 12.5 mg PO BID - Follow Up or Referral Follow Up: Yovani Mack MD [Physician] - 04/14/17 9:00 am - Forms/Instructions Instructions: Atrial Fibrillation (DC) Exam - Constitutional Vitals: Period Temp Pulse Resp BP Sys/Olson Pulse Ox Last 24 Hr 96.0 F-99.1 F 73-101 16-20 99-129/51-88 90-97 Discharge Results Procedures and tests throughout hospitalization: Pending Orders 03/01/17 07:15 Stool Culture Routine Stool for WBCs Routine Labs on day of discharge: Labs from last 24 hours 03/03/17 03/03/17 03/03/17 07:04 04:14 04:14 WBC 8.1 RBC 3.01 L Hgb 8.9 L Hct 26.9 L MCV 89.4 MCH 30 MCHC 33.1 RDW 14.7 Plt Count 298 MPV 11.3 Neut % (Auto) 50.7 Lymph % (Auto) 32.7 [place] % (Auto) 10.4 Eos % (Auto) 5.4 Baso % (Auto) 0.6 Neut # (Auto) 4.1 Lymph # (Auto) 2.7 [place] # (Auto) 0.8 Eos # (Auto) 0.4 Baso # (Auto) 0.1 Immature Gran % 0.2 Nucleated RBC % 0.0 Immature Gran # 0.02 Nucleated RBCs # 0.00 Sodium 143 Potassium 3.8 Chloride 107 Carbon Dioxide 26 Anion Gap 13.8 BUN 13 Creatinine 1.00 GFR Calculation 106 BUN/Creatinine Ratio 13.00 Glucose 95 POC Glucose 137 H Calculated Osmolality 284.0 Calcium 7.6 L Magnesium 1.8 Triglycerides 102 Cholesterol 92 LDL Cholesterol 47.0 VLDL Cholesterol 20.4 HDL Cholesterol 34 L Heart Disease Risk Ratio 2.71 Free T4 TSH 3rd Generation 03/02/17 03/02/17 03/02/17 20:19 17:19 11:33 WBC RBC Hgb Hct MCV MCH MCHC RDW Plt Count MPV Neut % (Auto) Lymph % (Auto) [place] % (Auto) Eos % (Auto) Baso % (Auto) Neut # (Auto) Lymph # (Auto) [place] # (Auto) Eos # (Auto) Baso # (Auto) Immature Gran % Nucleated RBC % Immature Gran # Nucleated RBCs # Sodium Potassium Chloride Carbon Dioxide Anion Gap BUN Creatinine GFR Calculation BUN/Creatinine Ratio Glucose POC Glucose 175 H 165 H 168 H Calculated Osmolality Calcium Magnesium Triglycerides Cholesterol LDL Cholesterol VLDL Cholesterol HDL Cholesterol Heart Disease Risk Ratio Free T4 TSH 3rd Generation 03/02/17 03:49 WBC RBC Hgb Hct MCV MCH MCHC RDW Plt Count MPV Neut % (Auto) Lymph % (Auto) [place] % (Auto) Eos % (Auto) Baso % (Auto) Neut # (Auto) Lymph # (Auto) [place] # (Auto) Eos # (Auto) Baso # (Auto) Immature Gran % Nucleated RBC % Immature Gran # Nucleated RBCs # Sodium Potassium Chloride Carbon Dioxide Anion Gap BUN Creatinine GFR Calculation BUN/Creatinine Ratio Glucose POC Glucose Calculated Osmolality Calcium Magnesium Triglycerides Cholesterol LDL Cholesterol VLDL Cholesterol HDL Cholesterol Heart Disease Risk Ratio Free T4 1.09 TSH 3rd Generation 2.880 Preliminary micro results at discharge 03/01/17 07:15 Stool Culture - Preliminary Stool No enteric pathogens at 24 hrs DS: Provider Date of admission: 02/25/17 18:33 Primary care physician: . No PCP Attending physician on admission: Carlos Barahona MD Consults: 02/25/17 19:50 Consult to Pharmacy [CONS] Routine Reason for Pharmacy Consult: Adjust Meds Renal Funct 02/25/17 23:20 Consult to Physician [CONS] Routine Comment: On-call physician/SKYLER on CKD/hyperkalemia Consulting Provider: Consult to Specialist Group: Nephrology When should Consulting Provider be notified: In am 02/26/17 04:41 Consult to Physician [CONS] Routine Comment: Consulting Provider: Dev Mccann When should Consulting Provider be notified: In am Consult to Specialist Group: Nephrology Person Notified: emigdio de la cruzmaashley lópez emery Date Notified: 02/26/17 Time Notified: 08:55 Consult Notification Comment: clinic called back verified consult @ 1030 02/2602/26/17 04:43 Consult to Physician [CONS] Routine Comment: Consulting Provider: Shanel Pena When should Consulting Provider be notified: In am 02/26/17 06:55 Consult to Physician [CONS] Routine Comment: please assist in pain management, patient known Consulting Provider: Michael Cherry Person Notified: spoke to stenographer secretary & nurse @ dr cherry office Date Notified: 02/26/17 Time Notified: 09:15 Consult Notification Comment: they stated dr cherry does not have privileges @ [facility] but could see pt in clinic after discharge. 02/26/17 13:15 Consult to Physician [CONS] Routine Comment: chest pain, rapid afib Consulting Provider: Cardiology - [facility] 02/27/17 11:36 Consult to Pastoral Services [CONS] Routine Comment: Pastoral Screen: Declines Visit Request Teacher Drama Visit Pastoral Screen Source of Request: Patient 03/01/17 10:33 Consult to Case Mgmt/Social Srvs [CONS] Routine Reason for Case Mgmt/Social Srvs: Psychiatric Management Consult Comment: [facility] 03/02/17 12:05 Consult to Occupational Therapy [CONS] Routine Reason for Occupational Therapy: Evaluate and Treat Consult to Physical Therapy [CONS] Routine Reason for Physical Therapy: Evaluate and Treat 03/02/17 12:12 Consult to Physician [CONS] Routine Comment: right arm cellulitis Consulting Provider: Denzel Nolan Discharging clinician: Marvin COREA Expected date of discharge: 03/03/17 <Marissa Pepper - Last Filed: 03/03/17 14:30> Hospital Course - Time spent with patient Time with patient DS: Greater than 30 minutes (45 min) Diagnosis - Discharge Diagnosis (1) Psychiatric disorder Status: Acute (2) Renal failure Status: Resolved (3) Atrial fibrillation with rapid ventricular response Status: Resolved (4) Diabetes mellitus Status: Chronic (5) Chronic pain syndrome Status: Chronic (6) Cellulitis Status: Acute Discharge Plan - Discharge Data Condition at Discharge: Stable Discharge Diet: diabetic diet Activity: resume usual activities as tolerated Hygiene: no restrictions Weight Bearing at Discharge: full weight bearing Driving: no restrictions Contact your physician if you experience:: fever over 101 Exam - Constitutional General appearance: no acute distress, morbidly obese - Respiratory Respiratory exam: Present: clear to auscultation bilaterally, decreased breath sounds. Absent: rhonchi, wheezes - Cardiovascular Cardiovascular exam: Present: irregular rhythm. Absent: systolic murmur - GI/Abdominal GI/Abdominal exam: Present: normal bowel sounds, soft. Absent: tenderness - Extremities Exam Extremities exam: Present: normal inspection, normal capillary refill - Neurological Exam Neurological exam: Present: alert, oriented X3 - Psychiatric Psychiatric exam: Present: normal affect, normal mood
--- NOTE | 2017-03-03 10:49 | Cardiology Progress Note ---
Assessment and Plan - Time spent with patient Time spent with patient: Greater than 30 minutes (1) Chest pain Status: Resolved Assessment and plan: SEE PLAN OF CARE LISTED BELOW Current Visit: Yes (2) Sepsis Status: Resolved Assessment and plan: SEE PLAN OF CARE LISTED BELOW Current Visit: Yes (3) Renal failure Status: Resolved Assessment and plan: SEE PLAN OF CARE LISTED BELOW Current Visit: Yes Qualifiers: Chronic kidney disease stage: stage 3 (moderate) (4) Atrial fibrillation with rapid ventricular response Status: Resolved Assessment and plan: SEE PLAN OF CARE LISTED BELOW Current Visit: Yes (5) Diabetes mellitus Status: Chronic Assessment and plan: SEE PLAN OF CARE LISTED BELOW Current Visit: Yes Qualifiers: Diabetes mellitus type: type 2 (6) Chronic pain syndrome Status: Chronic Assessment and plan: SEE PLAN OF CARE LISTED BELOW Current Visit: Yes (7) Abnormal abdominal CT scan Status: Chronic Assessment and plan: SEE PLAN OF CARE LISTED BELOW Current Visit: Yes (8) Anemia Status: Chronic Assessment and plan: SEE PLAN OF CARE LISTED BELOW Current Visit: Yes Qualifiers: Chronic kidney disease stage: stage 1 (9) Leukocytosis Status: Resolved Assessment and plan: SEE PLAN OF CARE LISTED BELOW Current Visit: Yes (10) History of gastric ulcer Status: Chronic Assessment and plan: SEE PLAN OF CARE LISTED BELOW Current Visit: Yes (11) Hypertension Status: Chronic Assessment and plan: SEE PLAN OF CARE LISTED BELOW Current Visit: Yes Cardiology - PN: Subj Interval history: 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 PATRIC CASTORENA: DR. WATKINS PCP: DR. MIKO SEVILLA SUMMARY: Mr. Murphy, 66WM, has been previously followed by Dr. Watkins, care center manager, at [facility]. Risk factors include: History of hypertension, diabetes , CVA, obesity, sedentary lifestyle, remote tobaccoism. Admitted February 25, 2017 with sepsis thought to be related to a GI source. He was found to be in atrial fibrillation with rapid ventricular response requiring IV diltiazem. Heart rate has been difficult to control during hospitalization. He has a prior history of anemia and for this reason, formal anticoagulation has been avoided. In fact, because his anemia had worsened yesterday, aspirin was discontinued Thursday. Creatinine on admission 4.9, now normalized. History of Alzheimer's dementia and has difficulty remembering much of his health history but no prior history of known coronary artery disease is noted. Patient did have complaints of chest pain on Thursday which prompted a "heart alert". However, as he was being examined for these complaints, patient was repositioned in bed to a 90 angle, he belched numerous times in his chest pain resolved and has not returned. Cardiac biomarkers have been negative, EKG has not revealed an acute event. Echocardiogram reveals EF 70%, no significant valvular abnormality, PAP of 28 mmHg. MARCH 02, 2017: Last evening, IV diltiazem was reinitiated for heart rate around 130 bpm. Currently, diltiazem 10 mg/h infusing. Heart rates are better controlled. around low 100s. He is also on beta blockade and oral digoxin. Today, he is being transitioned to oral Diltiazem. He is agreeable to go to [facility] tomorrow and, if we can get get him off IV Diltiazem today, he will be eligible for transfer. VITALY VASC SCORE 3. ASA was discontinued over weekend for mildly worsened anemia. May benefit from restarting ASA. Will further discuss with Dr. Lai and await additional recommendations. MARCH 03, 2017: Overnight, patient's heart rate has been much better controlled on oral CCB. ASA has been started for stroke prevention (VITALY VASC SCORE 3). He is being discharged to [facility] facility today. Patient acknowledges significant snoring and holding of breath when sleeping. Neck circumference > 44CM, Mallampati Airway class III. He is agreeable to be evaluated for sleep disorder and I will arrange for outpatient sleep medicine referral. ASSESSMENT/PLAN: 1. CHEST PAIN - resolved with belching. Non-cardiac chest pain. Continue Simethicone and PPI. CIEs negative. 2. ATRIAL FIBRILLATION WITH RVR - now on IV Cardizem again. Transitioning to oral CCB today. Not a candidate for anti-coagulation due to anemia. VITALY VASC SCORE 3. ASA restarted. 3. SEPSIS - resolved. Continue current plan of care 4. HYPERTENSION - adequately controlled on Betablockade. Avoiding KERRY/ARB for fear of worsening renal insufficiency, also favor rate controlling agents at this time. 5. DIABETES - continue current plan of care. (LDL 47). 6. ACUTE RENAL INSUFFICIENCY - resolved. Creatinine normalized. Initially STAGE IV. 7. HISTORY OF GASTRIC ULCER DISEASE - Continue PPI 8. ABNORMAL ABDOMINAL CT - see report. 9. ANEMIA - seems to be stable at this time. 10. LEUKOCYTOSIS - resolved. Exam (Progress Note) - Constitutional Vitals: Period Temp Pulse Resp BP Sys/Olson Pulse Ox Last 24 Hr 96.0 F-99.1 F 73-101 16-20 99-129/51-88 90-97 Exam: General: [Appears critically ill. Pleasant and cooperative. ] HEENT: [PERRL, normocephalic, atraumatic. Mucous membranes moist. No jaundice noted. Conjunctiva moist and clear, sclerae anicteric] Neck: No obvious JVD noted. No thyromegaly or lymphadenopathy noted. No carotid bruit appreciated Cardiac: [Irregularly irregular rhythm, controlled rate at present. No obvious murmur, rub or gallop noted Lungs: [Clear to auscultation without accessory muscle use to assist the respiratory pattern.] Oxygen in use via nasal cannula intermittently. Abdomen: Soft, bowel sounds normoactive. Nontender and nondistended. No abdominal bruit or thrill noted. No masses noted. Musculoskeletal: No fluid collection. Decreased range of motion is noted. Extremities: No clubbing, cyanosis noted. [ Trace BLE edema. ] Upper extremity pulses 2+. Lower extremity pulses 1+. Great toe right foot amputated. Capillary refill less than 3 seconds. Skin: No unusual lesions or rashes. No skin breakdown appreciated. Neuro: Awake, alert and oriented 3. Moves all extremities well without hemiparesis or paralysis. No essential tremor is appreciated. Result/EKG - Labs CBC & BMP: 03/03/17 04:14 03/03/17 04:14 Lab Results: I have reviewed the past 24 hour labs Labs: Laboratory Results - last 24 hr 03/02/17 03/02/17 03/02/17 03:49 11:33 17:19 WBC RBC Hgb Hct MCV MCH MCHC RDW Plt Count MPV Neut % (Auto) Lymph % (Auto) [place] % (Auto) Eos % (Auto) Baso % (Auto) Neut # (Auto) Lymph # (Auto) [place] # (Auto) Eos # (Auto) Baso # (Auto) Immature Gran % Nucleated RBC % Immature Gran # Nucleated RBCs # Sodium Potassium Chloride Carbon Dioxide Anion Gap BUN Creatinine GFR Calculation BUN/Creatinine Ratio Glucose POC Glucose 168 H 165 H Calculated Osmolality Calcium Magnesium Triglycerides Cholesterol LDL Cholesterol VLDL Cholesterol HDL Cholesterol Heart Disease Risk Ratio Free T4 1.09 TSH 3rd Generation 2.880 03/02/17 03/03/17 03/03/17 20:19 04:14 04:14 WBC 8.1 RBC 3.01 L Hgb 8.9 L Hct 26.9 L MCV 89.4 MCH 30 MCHC 33.1 RDW 14.7 Plt Count 298 MPV 11.3 Neut % (Auto) 50.7 Lymph % (Auto) 32.7 [place] % (Auto) 10.4 Eos % (Auto) 5.4 Baso % (Auto) 0.6 Neut # (Auto) 4.1 Lymph # (Auto) 2.7 [place] # (Auto) 0.8 Eos # (Auto) 0.4 Baso # (Auto) 0.1 Immature Gran % 0.2 Nucleated RBC % 0.0 Immature Gran # 0.02 Nucleated RBCs # 0.00 Sodium 143 Potassium 3.8 Chloride 107 Carbon Dioxide 26 Anion Gap 13.8 BUN 13 Creatinine 1.00 GFR Calculation 106 BUN/Creatinine Ratio 13.00 Glucose 95 POC Glucose 175 H Calculated Osmolality 284.0 Calcium 7.6 L Magnesium 1.8 Triglycerides 102 Cholesterol 92 LDL Cholesterol 47.0 VLDL Cholesterol 20.4 HDL Cholesterol 34 L Heart Disease Risk Ratio 2.71 Free T4 TSH 3rd Generation 03/03/17 07:04 WBC RBC Hgb Hct MCV MCH MCHC RDW Plt Count MPV Neut % (Auto) Lymph % (Auto) [place] % (Auto) Eos % (Auto) Baso % (Auto) Neut # (Auto) Lymph # (Auto) [place] # (Auto) Eos # (Auto) Baso # (Auto) Immature Gran % Nucleated RBC % Immature Gran # Nucleated RBCs # Sodium Potassium Chloride Carbon Dioxide Anion Gap BUN Creatinine GFR Calculation BUN/Creatinine Ratio Glucose POC Glucose 137 H Calculated Osmolality Calcium Magnesium Triglycerides Cholesterol LDL Cholesterol VLDL Cholesterol HDL Cholesterol Heart Disease Risk Ratio Free T4 TSH 3rd Generation - EKG EKG results: interpreted by me EKG shows: atrial fibrillation
[2017-03-03 11:24] VITALS: BP 125/79
[2017-03-03] MEDS: AMOXICILLIN/CLAV 500 MG TABLET PO SCH (12:10)
[2017-03-03] MEDS: DIGOXIN 0.125 MG TABLET PO SCH (12:10)
[2017-03-03] MEDS: DILTIAZEM INJ 100 MG in SODIUM CHLORIDE 0.9% 100 ML IV SCH (13:49)
== END 2017-03-03 14:27 | DRG 871 ==
LOC: EDBD → EDUNIT# → N.ED 16:53 → N.EDINP 18:33 → SUATTDRO 18:33 → N.CC 19:34 → N.TELEN 02-28 16:17
PROVIDERS: ADMIT Internal Medicine Infectious Disease; ATTEND Internal Medicine

== ENCOUNTER 2018-05-31 04:26 | Inpatient (IN) ==
[2018-05-31] MEDS ORDERED: ceFAZolin 1,000 MG in SYRINGE 1 EACH IV ONE (06:30)
[2018-05-31] MEDS ORDERED: VANCOMYCIN INJ 1,000 MG in SODIUM CHLORIDE 0.9% 250 ML IV ONE ×2 (06:30→18:46)
[2018-05-31] MEDS ORDERED: BACITRACIN OINT 0.9 GM PACK TOP ONE (07:50)
[2018-05-31] MEDS ORDERED: VANCOMYCIN 1,000 MG VIAL ONE (08:04)
[2018-05-31] MEDS ORDERED: ceFAZolin 1,000 MG VIAL ONE (08:04)
[2018-05-31] MEDS ORDERED: BUPIVACAINE SPINAL 0.75% 2 ML AMP SPINAL ONE (08:09)
[2018-05-31] MEDS ORDERED: TRANEXAMIC ACID 1,000 MG/10 ML VIAL ONE (08:14)
[2018-05-31] MEDS ORDERED: LACTATED RINGERS 1,000 ML IV SCH (08:30)
[2018-05-31] MEDS ORDERED: ROPIVACAINE 0.5% 30 ML VIAL ONE ×2 (10:23→11:49)
[2018-05-31] MEDS ORDERED: DEXTROSE 50% 25 GM/50 ML VIAL IV PRN (10:44)
[2018-05-31] MEDS ORDERED: GLUCAGON 1 MG VIAL IM PRN (10:44)
[2018-05-31] MEDS ORDERED: oxyCODONE/ACETAMINOPHEN 5-325 MG TABLET PO PRN (10:45)
[2018-05-31] MEDS ORDERED: HYDROmorphone 2 MG/1 ML VIAL IV PRN (10:45)
[2018-05-31] MEDS ORDERED: diphenhydrAMINE CAP 25 MG CAPSULE PO PRN (10:45)
[2018-05-31] MEDS ORDERED: ONDANSETRON 4 MG/2 ML VIAL IV PRN ×2 (10:45→11:12)
[2018-05-31] MEDS ORDERED: ZALEPLON 5 MG CAPSULE PO PRN (10:45)
[2018-05-31] MEDS ORDERED: oxyCODONE IR 5 MG TABLET PO PRN ×2 (10:45)
[2018-05-31] MEDS ORDERED: MAGNESIUM HYDROXIDE SUSP 30 ML UDCUP PO PRN (10:45)
[2018-05-31] MEDS ORDERED: ONDANSETRON 4 MG/2 ML VIAL ONE ×2 (11:06→13:38)
[2018-05-31] MEDS ORDERED: HYDROmorphone 2 MG/1 ML VIAL ONE (11:06)
[2018-05-31] MEDS: HYDROmorphone 2 MG/1 ML VIAL IV PRN ×3 (11:06→11:30)
[2018-05-31] MEDS: LACTATED RINGERS 1,000 ML IV SCH ×2 (13:00→21:19)
[2018-05-31 13:31] LABS: Basophils # 0.1 10*3/uL (0.0-0.2); Basophils % 0.5 % (0.0-0.8); Eosinophils # 0.2 10*3/uL (0.0-0.87); Eosinophils % 0.9 % (0.00-10.9); Hematocrit 35.3 VOL% (42.0-52.0); Hemoglobin 10.7 GM/DL (14.0-18.0); Immature Granulocytes % 0.4 %; Immature Granulocytes Absolute 0.07 #; Lymphocytes # 0.9 10*3/uL (1.4-4.0); Mean Corpuscular HGB Conc 30.3 GM/DL (32-36); Mean Corpuscular Hemoglobin 25 PG (27-34); Mean Corpuscular Volume 82.7 FL (87-102); Mean Platelet Volume 10.6 FL (9.6-12.0); Monocytes # 0.1 10*3/uL (0.11-0.8); Monocytes % 0.7 % (1.7-12.7); Neutrophils # 16.2 10*3/uL (1.4-7.4); Neutrophils % 92.5 % (38.7-73.9); Platelet Count 345 T/CUMM (130-400); Red Blood Count 4.27 MC/CUMM (3.8-5.5); Red Cell Distribution Width 15.9 % (9.3-17.3); White Blood Count 17.5 T/CUMM (4-12)
[2018-05-31] MEDS ORDERED: PROPOFOL 200 MG/20 ML VIAL IV ONE (13:37)
[2018-05-31] MEDS ORDERED: DEXAMETHASONE 10 MG/1 ML VIAL ONE (13:38)
[2018-05-31] MEDS ORDERED: GLYCOPYRROLATE 0.4 MG/2 ML VIAL ONE (13:38)
[2018-05-31] MEDS ORDERED: SEVOFLURANE 1 UNIT/15 MINUTE INH ONE (13:38)
[2018-05-31] MEDS ORDERED: fentaNYL 100 MCG/2 ML VIAL ONE (13:38)
[2018-05-31] MEDS ORDERED: MIDAZOLAM 2 MG/2 ML VIAL ONE (13:38)
[2018-05-31] MEDS ORDERED: KETOROLAC 30 MG/1 ML VIAL ONE (13:38)
[2018-05-31] MEDS ORDERED: ROCURONIUM 100 MG/10 ML VIAL IV ONE (13:39)
[2018-05-31] MEDS ORDERED: NEOSTIGMINE 10 MG/10 ML VIAL ONE (13:39)
[2018-05-31] MEDS ORDERED: LACTATED RINGERS 1,000 ML IV ONE (13:39)
[2018-05-31] MEDS ORDERED: SODIUM CHLORIDE 0.9% 100 ML IV ONE (13:39)
[2018-05-31 14:01] LABS: Calcium 8.4 MG/DL (8.5-10.1); Osmolality,Calculated 278.8 MOS/KG (273-304)
[2018-05-31] MEDS: KETOROLAC 30 MG/1 ML VIAL IV SCH ×2 (14:07→21:20)
[2018-05-31] MEDS: INSULIN LISPRO 100 UNIT/ML SUBCUT SCH ×3 (14:10→21:26)
[2018-05-31 14:17] LABS: Lymphocytes 4 % (20-55); Segmented Neutrophils 96 % (50-85); Total Cells Counted 100
[2018-05-31 14:19] LABS: Anisocytosis 1+; Hypochromasia 1+
[2018-05-31 14:20] LABS: Microcytosis 1+
[2018-05-31 14:21] LABS: Ovalocytes Slight
[2018-05-31 14:22] LABS: Platelet Estimate Normal
[2018-05-31] MEDS: ACETAMINOPHEN 500 MG TABLET PO SCH ×2 (15:42→21:19)
[2018-05-31] MEDS: ceFAZolin 2,000 MG in PREMIX 1 EACH IV SCH (17:36)
[2018-05-31] MEDS: BIMATOPROST 0.01% OPH SOLN 2.5 ML BOTTLE BOTH EYES SCH (21:18)
[2018-05-31] MEDS: QUEtiapine 25 MG TABLET PO SCH (21:19)
[2018-05-31] MEDS: MORPHINE ER 30 MG TABLET PO SCH (21:19)
[2018-05-31] MEDS: DOCUSATE SODIUM 100 MG CAPSULE PO SCH (21:19)
[2018-05-31] MEDS: INSULIN GLARGINE 100 UNIT/ML SUBCUT SCH (21:25)
[2018-06-01] MEDS: KETOROLAC 30 MG/1 ML VIAL IV SCH ×2 (01:42→07:40)
[2018-06-01] MEDS: HYDROmorphone 2 MG/1 ML VIAL IV PRN ×2 (01:44→21:45)
[2018-06-01] MEDS: ceFAZolin 2,000 MG in PREMIX 1 EACH IV SCH (01:52)
[2018-06-01] MEDS: ACETAMINOPHEN 500 MG TABLET PO SCH ×2 (02:35→09:34)
[2018-06-01] MEDS ORDERED: VANCOMYCIN INJ 1,000 MG in SODIUM CHLORIDE 0.9% 250 ML IV ONE (03:00)
[2018-06-01 06:29] LABS: Basophils % 0.1 % (0.0-0.8); Hemoglobin 9.7 GM/DL (14.0-18.0); Immature Granulocytes % 0.8 %; Immature Granulocytes Absolute 0.09 #; Lymphocytes # 1.2 10*3/uL (1.4-4.0); Lymphocytes % 9.7 % (21.2-54.2); Mean Corpuscular HGB Conc 31.3 GM/DL (32-36); Mean Corpuscular Hemoglobin 26 PG (27-34); Mean Corpuscular Volume 82.7 FL (87-102); Mean Platelet Volume 11.3 FL (9.6-12.0); Monocytes # 0.6 10*3/uL (0.11-0.8); Monocytes % 5.1 % (1.7-12.7); Neutrophils % 84.3 % (38.7-73.9); Platelet Count 352 T/CUMM (130-400); Red Blood Count 3.75 MC/CUMM (3.8-5.5); Red Cell Distribution Width 15.9 % (9.3-17.3); White Blood Count 11.9 T/CUMM (4-12)
[2018-06-01 06:44] LABS: Calcium 8.3 MG/DL (8.5-10.1); Osmolality,Calculated 277.1 MOS/KG (273-304); Potassium 4.2 MMOL/L (3.5-5.1)
[2018-06-01] MEDS: FONDAPARINUX 2.5 MG/0.5 ML SYRINGE SUBCUT SCH (07:19)
[2018-06-01] MEDS ORDERED: FUROSEMIDE 20 MG TABLET PO SCH (09:00)
[2018-06-01] MEDS: PANTOPRAZOLE 40 MG TABLET PO SCH (09:21)
[2018-06-01] MEDS: MORPHINE ER 30 MG TABLET PO SCH ×2 (09:22→20:24)
[2018-06-01] MEDS: FUROSEMIDE 40 MG TABLET PO SCH (09:23)
[2018-06-01] MEDS: QUEtiapine 25 MG TABLET PO SCH ×2 (09:23→20:23)
[2018-06-01] MEDS: DILTIAZEM CD 120 MG CAPSULE PO SCH (09:24)
[2018-06-01] MEDS: POTASSIUM CHLORIDE 20 MEQ TABLET PO SCH (09:25)
[2018-06-01] MEDS: DOCUSATE SODIUM 100 MG CAPSULE PO SCH ×2 (09:25→20:24)
[2018-06-01] MEDS: INSULIN LISPRO 100 UNIT/ML SUBCUT SCH ×4 (09:25→21:04)
[2018-06-01] MEDS: oxyCODONE/ACETAMINOPHEN 5-325 MG TABLET PO PRN ×2 (12:12→17:57)
[2018-06-01] MEDS: CELECOXIB 200 MG CAPSULE PO SCH (17:57)
[2018-06-01] MEDS: BIMATOPROST 0.01% OPH SOLN 2.5 ML BOTTLE BOTH EYES SCH (20:27)
[2018-06-01] MEDS: INSULIN GLARGINE 100 UNIT/ML SUBCUT SCH (21:05)
[2018-06-02 05:34] LABS: Basophils % 0.2 % (0.0-0.8); Eosinophils % 0.3 % (0.00-10.9); Hematocrit 29.5 VOL% (42.0-52.0); Hemoglobin 9.3 GM/DL (14.0-18.0); Immature Granulocytes % 0.3 %; Immature Granulocytes Absolute 0.04 #; Lymphocytes # 1.9 10*3/uL (1.4-4.0); Lymphocytes % 15.4 % (21.2-54.2); Mean Corpuscular HGB Conc 31.5 GM/DL (32-36); Mean Corpuscular Hemoglobin 26 PG (27-34); Mean Corpuscular Volume 80.8 FL (87-102); Mean Platelet Volume 11.2 FL (9.6-12.0); Monocytes % 8.3 % (1.7-12.7); Neutrophils # 9.2 10*3/uL (1.4-7.4); Neutrophils % 75.5 % (38.7-73.9); Platelet Count 314 T/CUMM (130-400); Red Blood Count 3.65 MC/CUMM (3.8-5.5); White Blood Count 12.2 T/CUMM (4-12)
[2018-06-02] MEDS: FONDAPARINUX 2.5 MG/0.5 ML SYRINGE SUBCUT SCH (05:54)
[2018-06-02] MEDS: oxyCODONE/ACETAMINOPHEN 5-325 MG TABLET PO PRN ×4 (07:36→21:35)
[2018-06-02] MEDS: INSULIN LISPRO 100 UNIT/ML SUBCUT SCH ×4 (07:40→20:30)
[2018-06-02] MEDS: DOCUSATE SODIUM 100 MG CAPSULE PO SCH ×2 (09:25→20:27)
[2018-06-02] MEDS: MORPHINE ER 30 MG TABLET PO SCH ×2 (09:25→20:26)
[2018-06-02] MEDS: DILTIAZEM CD 120 MG CAPSULE PO SCH (09:25)
[2018-06-02] MEDS: QUEtiapine 25 MG TABLET PO SCH ×2 (09:25→20:27)
[2018-06-02] MEDS: POTASSIUM CHLORIDE 20 MEQ TABLET PO SCH (09:25)
[2018-06-02] MEDS: CELECOXIB 200 MG CAPSULE PO SCH (09:25)
[2018-06-02] MEDS: PANTOPRAZOLE 40 MG TABLET PO SCH (09:25)
[2018-06-02] MEDS: FUROSEMIDE 40 MG TABLET PO SCH (09:25)
[2018-06-02] MEDS: INSULIN GLARGINE 100 UNIT/ML SUBCUT SCH (20:29)
[2018-06-02] MEDS: BIMATOPROST 0.01% OPH SOLN 2.5 ML BOTTLE BOTH EYES SCH (20:30)
[2018-06-03] MEDS: oxyCODONE/ACETAMINOPHEN 5-325 MG TABLET PO PRN ×2 (05:51→11:46)
[2018-06-03] MEDS: FONDAPARINUX 2.5 MG/0.5 ML SYRINGE SUBCUT SCH (05:53)
[2018-06-03 06:22] LABS: Basophils # 0.1 10*3/uL (0.0-0.2); Basophils % 0.9 % (0.0-0.8); Eosinophils # 0.5 10*3/uL (0.0-0.87); Eosinophils % 5.4 % (0.00-10.9); Hematocrit 28.6 VOL% (42.0-52.0); Hemoglobin 9.2 GM/DL (14.0-18.0); Immature Granulocytes % 0.2 %; Immature Granulocytes Absolute 0.02 #; Lymphocytes # 2.9 10*3/uL (1.4-4.0); Lymphocytes % 29.5 % (21.2-54.2); Mean Corpuscular HGB Conc 32.2 GM/DL (32-36); Mean Corpuscular Hemoglobin 26 PG (27-34); Mean Corpuscular Volume 79.9 FL (87-102); Mean Platelet Volume 11.1 FL (9.6-12.0); Monocytes % 10.1 % (1.7-12.7); Neutrophils # 5.3 10*3/uL (1.4-7.4); Neutrophils % 53.9 % (38.7-73.9); Platelet Count 298 T/CUMM (130-400); Red Blood Count 3.58 MC/CUMM (3.8-5.5); Red Cell Distribution Width 16.5 % (9.3-17.3); White Blood Count 9.9 T/CUMM (4-12)
[2018-06-03] MEDS ORDERED: TUBERCULIN SKIN TEST 0.1 ML SYRINGE INTRADERM ONE (08:44)
[2018-06-03] MEDS: CELECOXIB 200 MG CAPSULE PO SCH (09:04)
[2018-06-03] MEDS: PANTOPRAZOLE 40 MG TABLET PO SCH (09:04)
[2018-06-03] MEDS: QUEtiapine 25 MG TABLET PO SCH (09:04)
[2018-06-03] MEDS: DILTIAZEM CD 120 MG CAPSULE PO SCH (09:04)
[2018-06-03] MEDS: DOCUSATE SODIUM 100 MG CAPSULE PO SCH (09:04)
[2018-06-03] MEDS: POTASSIUM CHLORIDE 20 MEQ TABLET PO SCH (09:04)
[2018-06-03] MEDS: INSULIN LISPRO 100 UNIT/ML SUBCUT SCH ×2 (09:05→12:41)
[2018-06-03] MEDS: MORPHINE ER 30 MG TABLET PO SCH (09:05)
[2018-06-03] MEDS: FUROSEMIDE 40 MG TABLET PO SCH (09:05)
[2018-06-03 14:54] VITALS: BP 147/83
== END 2018-06-03 16:05 | DRG 470 ==
LOC: N.OR 04:26 → N.SDSINP 04:28 → N.3E 12:32
PROVIDERS: ADMIT Orthopaedic Surgery; ATTEND Orthopaedic Surgery